=== PATIENT | female | born 1945 | race Caucasian/White ===

== ENCOUNTER 2020-05-21 12:07 | Outpatient (REF) | payer MEDICARE, MEDICAID, SELFPAY ==
--- NOTE | 2020-05-21 | MM_ITS ---
EXAMINATION: MM SCREENING DIGITAL BREAST TOMOSYNTHESIS, BILATERAL CLINICAL INFORMATION: Screening. Asymptomatic. The lifetime risk of breast cancer based on the Tyrer-Cuzick Model is 3%. COMPARISON: Mammography: 05/16/2019, 03/29/2018 TECHNIQUE: Digital breast tomosynthesis is performed in both the craniocaudal and mediolateral oblique views along with computer-aided detection (CAD). Synthesized 2D images are generated from the tomosynthesis. FINDINGS: There are scattered areas of fibroglandular density (ACR BI-RADS breast composition Category b). There are no significant masses, abnormal calcifications, or other abnormalities. No significant changes from prior studies. MM/MM tomosynthesis screening BI IMPRESSION: No mammographic evidence of malignancy. ASSESSMENT: BI-RADS 1: Negative RECOMMENDATION: Routine annual mammography screening. This patient's information was entered into a reminder system with a target due date for their next mammogram.
== END 2020-05-21 12:08 | disposition home or self-care (01) ==
LOC: HO.MAMMO 12:07
PROVIDERS: PCP Internal Medicine; Visit Provider Internal Medicine
DX: Z12.31 Encounter for screening mammogram for malignant neoplasm of breast (principal)
CPT/HCPCS: 77063; 77067

== ENCOUNTER 2020-08-14 12:40 | Outpatient (REF) | payer MEDICARE, MEDICAID, SELFPAY ==
[2020-08-14 13:58] LABS: MANUAL DIFF FLAG NO
[2020-08-14 14:03] LABS: Basophils Absolute Auto 0.1 X10*3/uL (0.0-0.2); Basophils Percent Auto 0.8 % (0-2); Eosinophils Absolute Auto 0.3 X10*3/uL (0.0-0.4); Eosinophils Percent Auto 3.3 % (0-4); Hematocrit 41.5 % (37-47); Imm Gran Abs Auto 0.02 X10*3/uL (0.00-0.03); Imm Gran Pct Auto 0.2 % (0.0-0.4); Immature Retic Fraction 7.3 % (3.0-15.9); Lymphocytes Absolute Auto 3.6 X10*3/uL (1.2-4.9); Lymphocytes Percent Auto 40.7 % (20-40); Mean Corpuscular HGB Conc 31.3 g/dl (31.0-35.0); Mean Corpuscular Hemoglobin 25.7 pg (27.0-33.0); Mean Corpuscular Volume 82.2 fL (80-98); Mean Platelet Volume 11.5 fL (9.4-12.3); Monocytes Absolute Auto 0.8 X10*3/uL (0.1-1.2); Monocytes Percent Auto 9.1 % (2-11); Neutrophils Percent Auto 45.9 % (45-73); Platelet Count 293 X10*3/uL (160-400); Red Blood Count 5.05 X10*6/uL (4.20-5.50); Red Cell Distribution Width 14.5 % (11.0-16.0); Retic HGB Equivalent 30.1 pg (30.0-35.0); Reticulocyte Percent 1.1 % (0.5-1.8); Reticulocytes Absolute 0.054 X10*6/uL (0.026-0.095); White Blood Count 8.8 X10*3/uL (4.8-10.8)
[2020-08-14 14:35] LABS: Alanine Aminotransferase 12 U/L (0-31); Albumin Level 4.1 g/dL (3.5-5.0); Alkaline Phosphatase 38 U/L (39-117); Anion Gap 11 (12-20); Aspartate Amino Transferase 15 U/L (5-31); Bilirubin Total 0.5 mg/dL (0.0-1.0); Blood Urea Nitrogen 21 mg/dL (9-16); Calcium 8.9 mg/dL (8.4-10.2); Carbon Dioxide 31 mmol/L (22-29); Chloride 102 mmol/L (96-108); Cholesterol 245 mg/dL; Estimated Glomerular Filt Rate 58; Glucose Fasting 90 mg/dL (60-99); HDL Cholesterol 54 mg/dL; Iron 119 mcg/dL (30-160); LDL Cholesterol Calculated 159 mg/dl; Percent Iron Saturation 45 % (15-50); Potassium 4.4 mmol/l (3.3-5.1); Sodium 140 mmol/L (135-145); Total Iron Binding Capacity 262 mcg/dL (228-428); Total Protein 6.9 g/dL (6.5-8.0); Triglycerides 161 mg/dL; Unsaturated Iron Binding 143 ug/dL
[2020-08-14 15:01] LABS: Ferritin 96 ng/mL (10-250); Thyroid Stimulating Hormone 2.22 uIU/mL (0.32-4.0); Vitamin D 25-OH Total 44.9 ng/mL (>30)
== END 2020-08-14 12:41 | disposition home or self-care (01) ==
LOC: HO.LAB 12:40
PROVIDERS: PCP Internal Medicine; Visit Provider Internal Medicine
DX: M51.36 Other intervertebral disc degeneration, lumbar region (principal); E78.5 Hyperlipidemia, unspecified; F41.9 Anxiety disorder, unspecified; N39.46 Mixed incontinence
CPT/HCPCS: 36415; 80053; 80061; 82306; 82728; 83540; 84436; 84443; 85025; 85045

== ENCOUNTER 2021-04-13 10:14 | Outpatient (REF) | payer MEDICARE, MEDICAID, SELFPAY ==
[2021-04-13 10:40] LABS: MANUAL DIFF FLAG NO
[2021-04-13 10:52] LABS: Basophils Absolute Auto 0.1 X10*3/uL (0.0-0.2); Basophils Percent Auto 0.8 % (0-2); Eosinophils Absolute Auto 0.3 X10*3/uL (0.0-0.4); Eosinophils Percent Auto 4.3 % (0-4); Hematocrit 42.1 % (37-47); Hemoglobin 13.1 g/dl (12.0-16.0); Imm Gran Abs Auto 0.02 X10*3/uL (0.00-0.03); Imm Gran Pct Auto 0.3 % (0.0-0.4); Lymphocytes Absolute Auto 3.1 X10*3/uL (1.2-4.9); Lymphocytes Percent Auto 38.6 % (20-40); Mean Corpuscular HGB Conc 31.1 g/dl (31.0-35.0); Mean Corpuscular Hemoglobin 25.5 pg (27.0-33.0); Mean Corpuscular Volume 81.9 fL (80-98); Mean Platelet Volume 11.2 fL (9.4-12.3); Monocytes Absolute Auto 0.7 X10*3/uL (0.1-1.2); Monocytes Percent Auto 8.9 % (2-11); Neutrophils Absolute Auto 3.8 X10*3/uL (2.0-8.3); Neutrophils Percent Auto 47.1 % (45-73); Platelet Count 303 X10*3/uL (160-400); Red Blood Count 5.14 X10*6/uL (4.20-5.50); Red Cell Distribution Width 14.4 % (11.0-16.0)
[2021-04-13 11:01] LABS: Appearance Urine HAZY; Color Urine YELLOW; Glucose Urine UA NEG (NEG); Leukocyte Esterase Urine NEG (NEG); Nitrite Urine NEG (NEG); Specific Gravity - Urine 1.025 (1.005-1.025); Urine Blood NEG (NEG); Urine Ketones NEG (NEG); Urine Protein NEG (NEG-TRACE)
[2021-04-13 11:09] LABS: Alanine Aminotransferase 14 U/L (0-31); Alkaline Phosphatase 36 U/L (39-117); Anion Gap 12 (12-20); Aspartate Amino Transferase 15 U/L (5-31); Bilirubin Total 0.3 mg/dL (0.0-1.0); Blood Urea Nitrogen 20 mg/dL (9-16); Calcium 9.2 mg/dL (8.4-10.2); Carbon Dioxide 28 mmol/L (22-29); Chloride 106 mmol/L (96-108); Cholesterol 234 mg/dL; Estimated Glomerular Filt Rate 52; Glucose Random 104 mg/dL (60-115); HDL Cholesterol 49 mg/dL; LDL Cholesterol Calculated 155 mg/dl; Potassium 4.2 mmol/L (3.3-5.1); Sodium 142 mmol/L (135-145); Total Protein 6.6 g/dL (6.5-8.0); Triglycerides 153 mg/dL
[2021-04-13 11:32] LABS: Free T4 (Free Thyroxine) 0.86 ng/dL (0.71-1.85); Vitamin D 25-OH Total 46.9 ng/mL (>30)
[2021-04-13 12:07] LABS: Mucus Urine 2+ /LPF; Squamous Epithelial Cell Urine 2+ /LPF
[2021-04-13 12:08] LABS: Bacteria Urine TRACE /LPF; RBC Urine 0 /HPF (0)
[2021-04-13 12:12] LABS: Folate 8.4 ng/mL (> or = 4.0); Vitamin B12 1314 pg/mL (200-900)
== END 2021-04-13 10:15 | disposition home or self-care (01) ==
LOC: HO.LAB 10:14
PROVIDERS: PCP Internal Medicine; Visit Provider Internal Medicine
DX: E78.00 Pure hypercholesterolemia, unspecified (principal)
CPT/HCPCS: 36415; 80053; 80061; 81001; 82306; 82607; 82746; 84439; 84443; 85025

== ENCOUNTER 2021-07-06 12:54 | Outpatient (REF) | payer MEDICARE, MEDICAID, SELFPAY ==
[2021-07-06 13:34] LABS: Appearance Urine CLOUDY; Color Urine YELLOW; Glucose Urine UA NEG (NEG); Leukocyte Esterase Urine 2+ (NEG); Nitrite Urine POS (NEG); Specific Gravity - Urine 1.025 (1.005-1.025); UACC Culture Trigger YES; Urine Blood NEG (NEG); Urine Ketones NEG (NEG); Urine Protein NEG (NEG-TRACE)
[2021-07-06 13:48] LABS: Bacteria Urine 2+ /LPF; WBC Urine TNTC /HPF (0-4)
[2021-07-06 13:49] LABS: Mucus Urine 2+ /LPF; Squamous Epithelial Cell Urine 2+ /LPF
== END 2021-07-06 12:55 | disposition home or self-care (01) ==
LOC: HO.LAB 12:54
PROVIDERS: Visit Provider Internal Medicine
DX: R30.0 Dysuria (principal)
CPT/HCPCS: 81001; 87086; 87088; 87186

== ENCOUNTER 2021-11-10 12:24 | Outpatient (REF) | payer MEDICARE, MEDICAID, SELFPAY ==
--- NOTE | ~2021-11-10 | MM_ITS ---
EXAMINATION: BONE DENSITOMETRY CLINICAL INDICATION: Age-related osteoporosis without current pathological fracture. COMPARISON: Baseline BD dated 11/10/2016. TECHNIQUE: Using a [employer] DXA System (software version: 13.1) manufactured by [employer], dual-energy x-ray absorptiometry was performed of the lumbar spine and left hip. The images are of good technical quality. Summary results are attached. FINDINGS: AP SPINE L1-L4: Current: BMD 1.335 g/cm2, Z-score 2.7, T-score 1.3, normal, 1.7% increase from baseline (<5% change is not significant). Baseline: BMD 1.313 g/cm2. LEFT FEMUR, NECK: Current: BMD 0.893 g/cm2, Z-score 0.6, T-score -1.0, normal. Baseline: BMD 0.995 g/cm2. LEFT FEMUR, TOTAL: Current: BMD 0.960 g/cm2, Z-score 1.1, T-score -0.4, normal, 4.0% decrease from baseline (<5% change is not significant). Baseline: BMD 1.000 g/cm2. IDENTIFIED RISK FACTORS: Height loss. Early menopause, secondary osteoporosis, hysterectomy, left oophorectomy. HISTORY OF FRACTURE: None listed. MEDICATIONS: Calcium supplements or multivitamin, vitamin D, ERT/SERMS. MM/XR DEXA axial skeleton IMPRESSION: 1. DIAGNOSIS: Normal bone density based on the lowest T-score value of -1.0 in the femoral neck applying World Health Organization criteria. 2. 10-YEAR FRACTURE RISK PREDICTION, FRAX: According to the guidelines, FRAX calculation should only be performed on patients in the osteopenia bone density category. Therefore, FRAX was not performed on this patient. 3. Treatment Recommendations: NOF guidelines recommend consideration for treatment in postmenopausal women and men age 50 and older presenting with the following: -A hip or vertebral (clinical or morphometric) fracture. -T-score less than or equal to -2.5 at the femoral neck or spine after appropriate evaluation to exclude secondary causes. -Low bone mass at the hip or spine and a 10-year fracture probability by FRAX of greater than or equal to 3% for hip fracture or greater than or equal to 20% for major osteoporotic fracture based on the [place] adapted WHO algorithm. 4. Other Recommendations: All treatment decisions require clinical judgment and consideration of individual patient factors, including patient preferences, comorbidities, previous drug use, risk factors not captured in the FRAX model (e.g. frailty, falls, vitamin D deficiency, increased bone turnover, interval significant decline in bone density) and possible under or overestimation of fracture risk by FRAX. FUTURE SCAN RECOMMENDATION: People with diagnosed cases of osteoporosis or at high risk for fracture should have regular bone mineral density tests. For patients eligible for Medicare, routine testing is allowed once every 2 years. The testing frequency can be increased to one year for patients who have rapidly progressing disease, those who are receiving or discontinuing medical therapy to restore bone mass, or have additional risk factors.
--- NOTE | ~2021-11-10 | MM_ITS ---
EXAMINATION: MM SCREENING DIGITAL BREAST TOMOSYNTHESIS, BILATERAL CLINICAL INFORMATION: Screening. Asymptomatic. The lifetime risk of breast cancer based on the Tyrer-Cuzick Model is 2%. COMPARISON: Mammography: 05/21/2020, 05/16/2019, 03/29/2018, 03/24/2017, 03/01/2016, 01/26/2015, 12/12/2013, 11/06/2012, 10/31/2011 TECHNIQUE: Digital breast tomosynthesis is performed in both the craniocaudal and mediolateral oblique views along with computer-aided detection (CAD). Synthesized 2D images are generated from the tomosynthesis. FINDINGS: There are scattered areas of fibroglandular density (ACR BI-RADS breast composition Category b). Parenchymal pattern is similar to prior studies. There is chronic mild parenchymal asymmetry central upper left breast on MLO view similar to multiple prior exams dating back to 2011. There is no developing density. No interval mass or architectural abnormality or abnormal calcifications. Incidental low right axillary tail node on MLO view. Skin contours are smooth. MM/MM tomosynthesis screening BI IMPRESSION: No mammographic evidence of malignancy. ASSESSMENT: BI-RADS 2: Benign RECOMMENDATION: Routine annual mammography screening. This patient's information was entered into a reminder system with a target due date for their next mammogram.
== END 2021-11-10 12:25 | disposition home or self-care (01) ==
LOC: HO.MAMMO 12:24
PROVIDERS: PCP Internal Medicine; Visit Provider Internal Medicine
DX: Z12.31 Encounter for screening mammogram for malignant neoplasm of breast (principal); M81.0 Age-related osteoporosis without current pathological fracture; M17.10 Unilateral primary osteoarthritis, unspecified knee; R29.890 Loss of height; Z90.710 Acquired absence of both cervix and uterus; Z90.721 Acquired absence of ovaries, unilateral
CPT/HCPCS: 77063; 77067; 77080

== ENCOUNTER 2022-11-07 11:18 | Outpatient (REF) | payer MEDICARE, MEDICAID, SELFPAY ==
[2022-11-07 11:36] LABS: MANUAL DIFF FLAG NO
[2022-11-07 11:46] LABS: Basophils Absolute Auto 0.1 X10*3/uL (0.0-0.2); Basophils Percent Auto 1.1 % (0-2); Eosinophils Absolute Auto 0.3 X10*3/uL (0.0-0.4); Eosinophils Percent Auto 3.6 % (0-4); Hemoglobin 12.8 g/dl (12.0-16.0); Imm Gran Abs Auto 0.02 X10*3/uL (0.00-0.03); Imm Gran Pct Auto 0.3 % (0.0-0.4); Lymphocytes Absolute Auto 2.9 X10*3/uL (1.2-4.9); Lymphocytes Percent Auto 38.5 % (20-40); Mean Corpuscular HGB Conc 31.2 g/dl (31.0-35.0); Mean Corpuscular Hemoglobin 25.2 pg (27.0-33.0); Mean Corpuscular Volume 80.9 fL (80.0-98.0); Mean Platelet Volume 10.8 fL (9.4-12.3); Monocytes Absolute Auto 0.7 X10*3/uL (0.1-1.2); Monocytes Percent Auto 9.7 % (2-11); Neutrophils Absolute Auto 3.5 x10*3/uL (2.0-8.3); Neutrophils Percent Auto 46.8 % (45-73); Platelet Count 282 X10*3/uL (160-400); Red Blood Count 5.07 X10*6/uL (4.20-5.50); Red Cell Distribution Width 14.9 % (11.0-16.0); White Blood Count 7.5 X10*3/uL (4.8-10.8)
[2022-11-07 12:04] LABS: Appearance Urine Cloudy; Color Urine Yellow; Glucose Urine UA Negative (Negative); Leukocyte Esterase Urine Large (3+) (Negative); Nitrite Urine Negative (Negative); UMIC TRIGGER UACC YES; Urine Blood Negative (Negative); Urine Ketones Negative (Negative); Urine Protein Negative (Neg-Trace)
[2022-11-07 12:06] LABS: Bacteria Urine 4+ (None Seen); Hyaline Casts Urine 0-2 /LPF (0-2); RBC Urine 0-2 /HPF (0-2); UACC Culture Trigger YES; WBC Urine >50 /HPF (0-5)
[2022-11-07 12:15] LABS: Estimated Average Glucose 117 mg/dL; Hemoglobin A1c % 5.7 %
[2022-11-07 12:35] LABS: Alanine Aminotransferase 12 U/L (0-31); Albumin Level 3.9 g/dL (3.5-5.0); Alkaline Phosphatase 39 U/L (39-117); Anion Gap 13 (12-20); Aspartate Amino Transferase 14 U/L (5-31); Bilirubin Total 0.5 mg/dL (0.0-1.0); Blood Urea Nitrogen 22 mg/dL (9-16); Calcium 9.1 mg/dL (8.4-10.2); Carbon Dioxide 27 mmol/L (22-29); Chloride 106 mmol/L (96-108); Cholesterol 243 mg/dL; Estimated Glomerular Filt Rate 47; Glucose Random 88 mg/dL (60-115); HDL Cholesterol 43 mg/dL; LDL Cholesterol Calculated 170 mg/dl; Potassium 4.2 mmol/L (3.3-5.1); Sodium 142 mmol/L (135-145); Total Protein 6.5 g/dL (6.5-8.0); Triglycerides 154 mg/dL
[2022-11-07 12:43] LABS: Folate 8.5 ng/mL (> or = 4.0); Free T4 (Free Thyroxine) 0.86 ng/dL (0.71-1.85); Thyroid Stimulating Hormone 3.58 uIU/mL (0.32-4.0); Vitamin B12 1220 pg/mL (200-900); Vitamin D 25-OH Total 72.9 ng/mL (>30)
== END 2022-11-07 11:19 | disposition home or self-care (01) ==
LOC: HO.LAB 11:18
PROVIDERS: PCP Internal Medicine; Visit Provider Internal Medicine
DX: R73.01 Impaired fasting glucose (principal); N39.0 Urinary tract infection, site not specified; E78.00 Pure hypercholesterolemia, unspecified; M81.0 Age-related osteoporosis without current pathological fracture
CPT/HCPCS: 36415; 80053; 80061; 81001; 81003; 82306; 82607; 82746; 83036; 84439; 84443; 85025; 87086; 87088; 87186

== ENCOUNTER 2022-11-18 10:48 | Outpatient (REF) | payer MEDICARE, MEDICAID, SELFPAY ==
--- NOTE | ~2022-11-18 | MM_ITS ---
EXAMINATION: MM SCREENING DIGITAL BREAST TOMOSYNTHESIS, BILATERAL CLINICAL INFORMATION: Screening. Asymptomatic. The lifetime risk of breast cancer based on the Tyrer-Cuzick Model is 1%. COMPARISON: Mammography: 11/10/2021, 05/21/2020, 05/16/2019 TECHNIQUE: Digital breast tomosynthesis is performed in both the craniocaudal and mediolateral oblique views along with computer-aided detection (CAD). Synthesized 2D images are generated from the tomosynthesis. FINDINGS: There are scattered areas of fibroglandular density (ACR BI-RADS breast composition Category b). There are no significant masses, abnormal calcifications, or other abnormalities. Parenchymal pattern is similar to prior studies. There is no developing density or architectural abnormality. The axilla and skin contours are unremarkable. No significant changes. MM/MM tomosynthesis screening BI IMPRESSION: No mammographic evidence of malignancy. ASSESSMENT: BI-RADS 1: Negative RECOMMENDATION: Routine annual mammography screening. This patient's information was entered into a reminder system with a target due date for their next mammogram.
== END 2022-11-18 10:49 | disposition home or self-care (01) ==
LOC: HO.MAMMO 10:48
PROVIDERS: PCP Internal Medicine; Visit Provider Nurse Practitioner Family
DX: Z12.31 Encounter for screening mammogram for malignant neoplasm of breast (principal)
CPT/HCPCS: 77063; 77067

== ENCOUNTER 2022-11-29 13:54 | Outpatient (REF) | payer MEDICARE, MEDICAID, SELFPAY ==
--- NOTE | ~2022-11-29 | US_ITS ---
EXAMINATION: US VENOUS ULTRASOUND WITH DOPPLER LOWER EXTREMITY, RIGHT CLINICAL INFORMATION: Pain COMPARISON: None available. TECHNIQUE: Ultrasound of the deep veins is performed from the hip to the calf with compression sonography and color and pulse Doppler assessment. Spectral analysis with color-flow imaging is performed. FINDINGS: There is normal venous compression and respiratory variation and augmented flow. The visualized common femoral vein, superficial femoral vein, profunda femoral vein, popliteal vein, and the trifurcation region shows no evidence of deep venous thrombosis. There is superficial thrombophlebitis in the right greater saphenous vein in the calf. There is no significant popliteal fossa cyst. US/US venous duplex LE RT IMPRESSION: No DVT demonstrated in the right lower extremity. Superficial thrombophlebitis of the greater saphenous vein in the calf.
== END 2022-11-29 13:55 | disposition home or self-care (01) ==
LOC: HO.US 13:54
PROVIDERS: PCP Internal Medicine; Visit Provider Nurse Practitioner Family
DX: Z13.89 Encounter for screening for other disorder (principal)
CPT/HCPCS: 93971

== ENCOUNTER 2022-11-29 15:25 | Emergency (ER) | payer MEDICARE, MEDICAID, SELFPAY ==
--- NOTE | 2022-11-29 16:19 | ED_ITS ---
HPI - General Adult General Chief complaint: Extremity Problem Stated complaint: sent by dr for bloodwork Time Seen by Provider: 11/29/22 16:56 Source: patient, RN notes reviewed and old records reviewed Mode of arrival: ambulatory History of Present Illness HPI narrative: 77-year-old female with a past medical history degenerative disc disease, HLD, overactive bladder, vitamin-D deficiency, right knee replacement in March, presenting to the ED complaining of right lower extremity pain since knee replacement in March, had outpatient ultrasound today & was sent to ED for further evaluation. Denies fever, chills, SOB, numbness/tingling, lightheadedness/dizziness. Denies taking anticoagulation Onset (ago): month(s) Related Data Home Medications Medication Instructions Recorded Confirmed cholecalciferol (vitamin D3) 25 25 mcg PO DAILY 07/31/20 11/09/22 mcg (1,000 unit) capsule flaxseed oil 1,000 mg capsule 1,000 mg PO DAILY 07/31/20 11/09/22 lactobacillus combination no.8 3 3,000 mmu cells PO DAILY 07/31/20 11/09/22 billion cell capsule (Adult Probiotic) cyanocobalamin (vitamin B-12) 1,000 mcg PO DAILY 04/27/21 11/09/22 1,000 mcg capsule Previous Rx's Medication Instructions Recorded estradiol 0.5 mg tablet 0.5 mg PO DAILY #90 tabs 10/22/21 diclofenac sodium 1 % topical gel 4 g topical QID #100 grams 10/26/21 (Voltaren Arthritis Pain) amoxicillin 500 mg capsule 2,000 mg PO .COMPLEX #4 caps 08/10/22 citalopram 20 mg tablet 20 mg PO DAILY #90 tabs 10/07/22 sulfamethoxazole 800 1 tab PO Q12H #14 tabs 11/09/22 mg-trimethoprim 160 mg tablet (Bactrim DS) Allergies Allergy/AdvReac Type Severity Reaction Status Date / Time tramadol [TRAMADOL] Allergy Severe THROAT Verified 11/09/22 14:10 SWELLING aspirin [ASPIRIN] Allergy Intermediate GI UPSET - Verified 11/09/22 14:10 ABD PAIN, pain morphine [MORPHINE] Allergy Intermediate JITTERY, Verified 11/09/22 14:10 pain nitrofurantoin Allergy Intermediate HIVES Verified 11/09/22 14:10 [From MACROBID] codeine [CODEINE] Allergy Unknown pain Verified 11/09/22 14:10 oxycodone [Percocet] Allergy Unknown pain Verified 11/09/22 14:10 Sulfa (Sulfonamide Allergy Unknown Nausea, Verified 11/09/22 14:10 Antibiotics) diarrhea mirabegron [From Myrbetriq] AdvReac Intermediate Dizziness Verified 11/09/22 14:10 sulfamethoxazole AdvReac Intermediate NAUSEA/DIAR Verified 11/09/22 14:10 [From BACTRIM] ZAHRAA trimethoprim [From BACTRIM] AdvReac Intermediate NAUSEA/DIAR Verified 11/09/22 14:10 ZAHRAA Propoxyphene HCl Allergy Unknown Unknown Uncoded 11/09/22 14:10 From DARVOCET-N 100 AdvReac Intermediate ABD PAIN - Uncoded 11/09/22 14:10 NAUSEA Review of Systems Review of Systems: Constitutional: No Fever, No Chills ENT/Mouth: No Ear Pain, No Nasal Congestion, No sore throat, No Rhinorrhea, No Swallowing Difficulty Cardiovascular: No Chest Pain, No SOB Respiratory: No Cough, No Sputum Gastrointestinal: No Nausea, No Vomiting, No Diarrhea, No Constipation, No Abdominal pain Musculoskeletal: + joint pain, No Myalgias, No Joint Swelling Skin: No Skin Lesions, No rash Neuro: No Weakness, No Numbness, No Paresthesias Yes all other systems are reviewed and are negative Constitutional: Constitutional: Reports as per [facility] Past Medical History Attestation statement: The following information was validated with the patient. Source: old records reviewed Medical History Allergic rhinitis Degenerative disc disease, lumbar Hypercholesterolemia Mixed incontinence Overactive bladder Vitamin D deficiency Surgical History History of arthroscopy of left knee History of cataract surgery History of cholecystectomy History of hysterectomy History of shoulder surgery Family History Family History Father Diabetes Myocardial infarction Heart disease Mother Heart disease Chronic mental illness Stomach cancer Sister Esophageal cancer Brother Esophageal cancer Paternal Grandfather Heart disease Social History Social History Housing: House Alcohol intake: current Alcohol intake frequency: a few times a month Patient Tobacco Use Status: Never used Tobacco e-Cigarette/Vaping Use: Never Used Second Hand Smoke Exposure: No service: No Current occupational status: retired Cognitive needs: No Hearing needs: No Vision needs: Yes Physical Exam ED Vital Signs: Vital Signs - 24 hr 11/29/22 16:24 Temperature 98.0 F Pulse Rate 59 Respiratory Rate 18 Blood Pressure 144/60 H Pulse Oximetry 97 Oxygen Delivery Method Room Air BMI result Body Mass Index 24.2 Const General: cooperative, healthy appearing and no acute distress Orientation/consciousness: patient oriented x3 Limitations: no limitations HENMT Head: Yes normal to inspection and Yes atraumatic Ears: hearing grossly normal bilaterally General nose exam: Normal external nose present Face and sinus: Yes normal facial exam Eyes General: appearance normal, both eyes and all related structures EOM: EOMs intact bilaterally Neck Neck: Yes normal visual inspection and Yes no meningeal signs Resp Effort & Inspection: normal respiratory effort and no respiratory distress Cardio Rate: regular rate Peripheral pulses: Peripheral pulses 2+ throughout Skin Rashes: no rashes Wounds: no wounds Neuro General: patient oriented x3, tone normal and no meningeal signs Gait exam (Neuro): Normal gait present Extrem Other: +Mild ttp to right upper LE. No appreciable swelling/ecchymosis or pitting edema. No erythema or warmth. NV intact distally General: Yes normal to inspection Course Course Course Narrative: US venous duplex LE RT IMPRESSION: No DVT demonstrated in the right lower extremity. Superficial thrombophlebitis of the greater saphenous vein in the calf. >> spoke with PCP Madeleine Galvez, patient is cleared for discharge, can follow up with PCP in 1 month. Genaro wrap applied for compression. Recommended warm compresses, elevation, and NSAIDs Results discussed with patient including worrisome signs and symptoms and strict return precautions, and when to return to the emergency department. They verbalized understanding and feel safe for discharge at this time. Medical Decision Making Medical Decision Making MDM Narrative: 77-year-old female with a past medical history degenerative disc disease, HLD, overactive bladder, vitamin-D deficiency, right knee replacement in March, presenting to the ED complaining of right lower extremity pain since knee replacement in March, had outpatient ultrasound today & was sent to ED for further evaluation. On exam vital signs stable, NAD, nontoxic appearing, physical exam as noted above. Ultrasound official read states no DVT in the right lower extremity. Superficial thrombophlebitis of the greater saphenous vein of the calf. No evidence of cellulitis or pitting edema. Low suspicion for septic joint, CHF or PE Unclear why patient was sent to the emergency department. Will contact patient's PCP Please refer to course for remaining clinical decision making, interpretation of labs/imaging results, and discussions with consultants and/or family members. Differential Diagnosis Differential Diagnoses: The differential diagnosis associated with the presentation includes As above Admission/Observation Consideration of admission/observation: Escalation of care including admission/observation considered Consult Healthcare Provider Management of the patient was discussed with: Primary Care Provider Lab Data MDM Lab Attestation statement: I reviewed the patient's lab results. Radiology Impression Discussion of test interpretation with radiology: I have reviewed the radiologist's reading. External Record Review External record reviewed: Inpatient record, Office record, Outpatient record, Prior outpatient labs, Prior outpatient radiology, Primary care record and Outside ED record Tests considered The following testing was considered but not selected: As above Discharge Plan Discharge Clinical Impression: Superficial thrombophlebitis Patient Disposition: Home, Self-Care Instructions: Superficial Thrombophlebitis (ED) Additional Instructions: Your ultrasound shows a superficial thrombophlebitis, no DVT Elevate, compression, warm compresses, take NSAIDs as needed which includes ibuprofen/Motrin Follow-up with her doctor If symptoms persist or worsen, you develop shortness of breath, worsening swelling, or fever return to the ED Prescriptions: No Action estradiol 0.5 mg tablet 0.5 mg PO DAILY Qty: 90 3RF citalopram 20 mg tablet 20 mg PO DAILY Qty: 90 2RF cholecalciferol (vitamin D3) 25 mcg (1,000 unit) capsule 25 mcg PO DAILY Adult Probiotic 3 billion cell capsule 3,000 mmu cells PO DAILY Rx Instructions: administer with a meal flaxseed oil 1,000 mg capsule 1,000 mg PO DAILY Rx Instructions: administer with a meal cyanocobalamin (vitamin B-12) 1,000 mcg capsule 1,000 mcg PO DAILY diclofenac sodium [Voltaren Arthritis Pain] 1 % gel 4 g topical QID Qty: 100 2RF Rx Instructions: apply to single knee, ankle, foot; for foot includes sole/toes/top of foot sulfamethoxazole-trimethoprim [Bactrim DS] 800-160 mg tablet 1 tab PO Q12H Qty: 14 0RF amoxicillin 500 mg capsule 2,000 mg PO .COMPLEX Qty: 4 0RF Rx Instructions: 2,000 mg orally one hour before the procedure; Referrals: Po,Fabiano Campos MD [Primary Care Provider] -
[2022-11-29 16:24] VITALS: BP 144/60; PULSE 59; RESP 18; TEMP 36.7; O2SAT 97; BMI 24.2
== END 2022-11-29 17:58 | disposition home or self-care (01) ==
PROVIDERS: Emergency Provider Internal Medicine; PCP Internal Medicine
DX: I80.01 Phlebitis and thrombophlebitis of superficial vessels of right lower extremity (principal); M79.661 Pain in right lower leg; Z79.899 Other long term (current) drug therapy
CPT/HCPCS: 93971; 99282

== ENCOUNTER 2023-02-08 13:03 | Outpatient (AMB) | payer MEDICARE, MEDICAID, SELFPAY ==
[2023-02-08 13:06] VITALS: BP 114/68; PULSE 76; O2SAT 97; BMI 25.2
--- NOTE | 2023-02-08 13:06 | A.OFFPC_ITS ---
Vital Signs 02/08/23 13:06 Height 5 ft 6 in Weight 156 lb BMI 25.2 BP 114/68 Blood Pressure Location Lt brachial Position Sitting Pulse 76 Pulse Source Pulse Oximeter Pulse Oximetry (%) 97 Oxygen Delivery Method Room Air Intake Visit Reasons: headaches, blood clot, hypercholesterolemia impaired glucose tolerance Allergies tramadol [TRAMADOL] Allergy (Severe, Verified 02/08/23 13:06) THROAT SWELLING aspirin [ASPIRIN] Allergy (Intermediate, Verified 02/08/23 13:06) GI UPSET - ABD PAIN, pain morphine [MORPHINE] Allergy (Intermediate, Verified 02/08/23 13:06) JITTERY, pain nitrofurantoin [From MACROBID] Allergy (Intermediate, Verified 02/08/23 13:06) HIVES codeine [CODEINE] Allergy (Unknown, Verified 02/08/23 13:06) pain oxycodone [Percocet] Allergy (Unknown, Verified 02/08/23 13:06) pain Sulfa (Sulfonamide Antibiotics) Allergy (Unknown, Verified 02/08/23 13:06) Nausea, diarrhea mirabegron [From Myrbetriq] Adverse Reaction (Intermediate, Verified 02/08/23 13:06) Dizziness sulfamethoxazole [From BACTRIM] Adverse Reaction (Intermediate, Verified 02/08/23 13:06) NAUSEA/DIARRHEA trimethoprim [From BACTRIM] Adverse Reaction (Intermediate, Verified 02/08/23 13:06) NAUSEA/DIARRHEA Propoxyphene HCl Allergy (Unknown, Uncoded 02/08/23 13:06) Unknown From DARVOCET-N 100 Adverse Reaction (Intermediate, Uncoded 02/08/23 13:06) ABD PAIN - NAUSEA Medication List - Last Reconciled 02/08/23 by Fabiano Mckeon MD amoxicillin 2,000 mg orally one hour before the procedure; cholecalciferol (vitamin D3) 25 mcg PO DAILY citalopram 20 mg PO DAILY cyanocobalamin (vitamin B-12) 1,000 mcg PO DAILY diclofenac sodium 1% (Voltaren Arthritis Pain) 4 grams topical QID estradiol 0.5 mg PO DAILY flaxseed oil 1,000 mg PO DAILY lactobacillus combination no.8 (Adult Probiotic) 3,000 mmu cells PO DAILY Tobacco use date assessed: 08/10/22 Fall risk assessment: No Falls in past year Last assessed Fall Risk: 02/08/23 Dental Screening Dental Screen Date: 02/08/23 Did you have a dental visit in the last 12 months?: Yes Did you have a dental problem in the last 6 months where you did not have access to dental care?: No Was dental information given to patient?: Patient has dentist HPI hypercholesterolemia impaired glucose tolerance HPI Details 77-year-old female with a history of knee osteoarthritis impaired glucose tolerance generalized anxiety disorder and hypercholesterolemia last seen in July 2022. Mammogram is due colonoscopy is up-to-date bone density is up-to-date. Patient has complained of right lower extremity pain since the knee replacement in March ultrasound done showing no DVT but superficial thrombophlebitis of the greater saphenous vein in the calf. complains of sleepy and tiredness, does snore,- afternoon nap, pateint feels anxiety and depressed decline counselling referral - financial problem. was told memory problem- MMS good. advised memory clinic. [facility] Medical History (Updated 02/08/23 @ 13:27 by Fabiano Mckeon MD) Allergic rhinitis Degenerative disc disease, lumbar Hypercholesterolemia Mixed incontinence Overactive bladder Right leg pain Screening for breast cancer Vitamin D deficiency Surgical History History of arthroscopy of left knee History of cataract surgery History of cholecystectomy History of hysterectomy History of shoulder surgery Family History (Updated 02/08/23 @ 13:07 by Mariola Demarco [facility]) Father Diabetes Myocardial infarction Heart disease Mother Heart disease Chronic mental illness Stomach cancer Sister Esophageal cancer Brother Esophageal cancer Paternal Grandfather Heart disease Social History Housing: House Alcohol intake: current Alcohol intake frequency: a few times a month Patient Tobacco Use Status: Never used Tobacco e-Cigarette/Vaping Use: Never Used Second Hand Smoke Exposure: No service: No Current occupational status: retired Cognitive needs: No Hearing needs: No Vision needs: Yes Questionnaire PHQ-9 Over the last 2 weeks, how often have you been bothered by any of the following problems? 1. Little interest or pleasure in doing things: more than half the days 2. Feeling down, depressed, or hopeless: more than half the days 3. Trouble falling or staying asleep, or sleeping too much: more than half the days 4. Feeling tired or having little energy: more than half the days 5. Poor appetite or overeating: more than half the days 6. Feeling bad about yourself - or that you are a failure or have let yourself or your family down: not at all 7. Trouble concentrating on things, such as reading the newspaper or watching television: not at all 8. Moving or speaking so slowly that other people could have noticed. Or the opposite - being so fidgety or restless that you have been moving around a lot more than usual: not at all 9. Thoughts that you would be better off or of hurting yourself in some way: not at all Total score: 10 Depression Screening Interpretation: Negative 52705 - PHQ-9 Billing: Yes Source: Developed by Drs. Naeem Garza, Belia Leone, Esa Amaral and colleagues, with an educational dino from [employer]. Thrive Questionnaire Date Thrive assessed: 08/10/22 AUDIT C Alcohol Use Questionnaire (AUDIT-C) 1. How often do you have a drink containing alcohol?: 2-3 times a week 2. How many drinks containing alcohol do you have on a typical day when you are drinking?: 1 or 2 3. How often do you have six or more drinks on one occasion?: Never Total Score: 3 Score Reviewed/Action Taken: No TEZ-7 AMB Questionnaire TEZ-7 Date TEZ - 7 assessed: 08/10/22 Source: Developed by Drs. Naeem Garaz, Belia Leone, Esa Amaral and colleagues, with an educational dino from [employer]. Physical exam (Primary Care) Vital Signs: Last Vital Signs Pulse 76 02/08/23 13:06 BP 114/68 02/08/23 13:06 Pulse Ox 97 02/08/23 13:06 Oxygen Delivery Method Room Air 02/08/23 13:06 BMI result Body Mass Index 25.2 Tobacco/Smoking Status: Tobacco use Status Tobacco use date assessed 08/10/22 02/08/23 13:12 Patient Tobacco Use Status Never used Tobacco 02/08/23 13:12 e-Cigarette/Vaping Use Never Used 02/08/23 13:12 PHQ-9: PHQ-9 Score PHQ-9: Total score 10 02/08/23 13:12 Depression Screening Interpretation: Negative Thrive Assessment: Date of Thrive Assessment Date Thrive assessed 08/10/22 02/08/23 13:12 Const General: alert; No acute distress Eyes Conjunctivae: conjunctivae normal Resp Auscultation: clear to auscultation bilaterally Cardio Rate: regular rate Rhythm: regular rhythm GI Inspection: Yes normal to inspection Extrem General: Yes normal to inspection and No edema Assessment and Plan Assessment & Plan (1) Superficial thrombophlebitis of right leg: Comment: November 2022No DVT demonstrated in the right lower extremity. Superficial thrombophlebitis of the greater saphenous vein in the calf. Code(s): I80.01 - Phlebitis and thrombophlebitis of superficial vessels of right lower extremity Plan: Heat and anti-inflammatories. this is getting better (2) Knee osteoarthritis: Comment: R knee arthroplasty 04/14/2022 Dr. Hwang Code(s): M17.10 - Unilateral primary osteoarthritis, unspecified knee Plan: Keep active (3) Impaired fasting blood sugar: Code(s): R73.01 - Impaired fasting glucose Plan: Decrease the amount of carbohydrate intake, pasta, bread, rice and potatoes are all sugar and that is aside from all the sweet stuff, remember that fruits are good but they are Sweet also. (4) Generalized anxiety disorder: Code(s): F41.1 - Generalized anxiety disorder Plan: Continue with present medications citalopram. decline additional med (5) Hypercholesterolemia: Code(s): E78.00 - Pure hypercholesterolemia, unspecified Plan: Avoid fried foods, chicken skin, eggs, butter margarine, pastries and meat. Be it pork or beef they have a lot of cholesterol LDL goal of less than 130 and triglyceride of less than 150 decline new med Orders: Orders Comprehensive Met. Panel 6 Months E78.00 - Pure hypercholesterolemia, unspecified Hemoglobin A1c 6 Months E78.00 - Pure hypercholesterolemia, unspecified Lipid Panel 6 Months E78.00 - Pure hypercholesterolemia, unspecified Coding Level of Care Code Est Pt Level 4 (53234) Diagnoses Superficial thrombophlebitis of right leg I80.01 Knee osteoarthritis M17.10 Impaired fasting blood sugar R73.01 Generalized anxiety disorder F41.1 Hypercholesterolemia E78.00
== END 2023-02-08 13:49 | disposition home or self-care (01) ==
PROVIDERS: PCP Internal Medicine; Visit Provider Internal Medicine
DX: I80.01 Phlebitis and thrombophlebitis of superficial vessels of right lower extremity (principal); M17.10 Unilateral primary osteoarthritis, unspecified knee; R73.01 Impaired fasting glucose; F41.1 Generalized anxiety disorder; E78.00 Pure hypercholesterolemia, unspecified
CPT/HCPCS: 99214

== ENCOUNTER 2023-06-12 18:33 | Emergency (ER) | payer MEDICARE, MEDICAID, SELFPAY ==
--- NOTE | ~2023-06-12 | CT_ITS ---
CT HEAD WITHOUT IV CONTRAST CT CERVICAL SPINE WITHOUT IV CONTRAST CT MAXILLOFACIAL WITHOUT IV CONTRAST INDICATION: Fall. COMPARISON: None available. TECHNIQUE: Multidetector CT acquisitions of the head, maxillofacial region, and cervical spine were obtained without IV contrast. Multiplanar reformats were acquired and utilized for image interpretation. This CT examination was performed using dose optimization techniques as appropriate, variously including the following: *Automated exposure control *Adjustment of mA and/or kV according to patient size (this includes techniques or standardized protocols for targeted exams where dose is matched to indication/reason for exam; i.e. extremities or head) *Use of iterative reconstruction technique FINDINGS: HEAD: There is no intracranial hemorrhage, hydrocephalus, extra-axial surface collection, midline shift, or other herniation pattern. Padron to white matter differentiation is diffusely maintained without evidence of an evolved acute territorial infarct. The basilar cisterns are preserved. No significant soft tissue abnormality. No acute osseous abnormality. The paranasal sinuses and the mastoid air cells are well aerated. MAXILLOFACIAL: Minimally displaced nasal bone fractures with overlying nasal swelling/soft tissue hematoma. Probable small avulsion fracture of the maxillary nasal spine on the right side. No additional maxillofacial fractures. CERVICAL SPINE: There is anatomic alignment of the vertebral bodies and posterior elements. Hypertrophic degenerative changes involving the atlantodental interval. Multilevel cervical spondylosis. There is no acute fracture and there is no acute subluxation. The craniocervical and atlantoaxial articulations are normal. There is no prevertebral soft tissue swelling. No significant soft tissue abnormality within the neck. The visualized lung apices are clear. CT/CT cervical spine wo IV con IMPRESSION: 1. No acute intracranial abnormality. 2. No acute osseous abnormality within the cervical spine. 3. Minimally displaced nasal bone fractures with overlying nasal swelling/soft tissue hematoma. Probable small avulsion fracture of the maxillary nasal spine on the right side.
--- NOTE | 2023-06-12 18:46 | ED_ITS ---
HPI - Fall General Chief Complaint: Fall Stated Complaint: TRIPPED AND FELL ON PAVEMENT Time Seen by Provider: 06/12/23 18:42 Source: patient Mode of arrival: EMS Limitations: no limitations History of Present Illness HPI Narrative: Patient apparently was walking on her driveway tripped on a hose which was crossing the driveway patient fell forward hitting her nose to the ground other injury has abrasion on the tip of the nose no loss of consciousness no neck pain chest swelling of the nose and surrounding area Related Data Home Medications Medication Instructions Recorded Confirmed cholecalciferol (vitamin D3) 25 25 mcg PO DAILY 07/31/20 02/08/23 mcg (1,000 unit) capsule flaxseed oil 1,000 mg capsule 1,000 mg PO DAILY 07/31/20 02/08/23 lactobacillus combination no.8 3 3,000 mmu cells PO DAILY 07/31/20 02/08/23 billion cell capsule (Adult Probiotic) cyanocobalamin (vitamin B-12) 1,000 mcg PO DAILY 04/27/21 02/08/23 1,000 mcg capsule Previous Rx's Medication Instructions Recorded diclofenac sodium 1 % topical gel 4 g topical QID #100 grams 10/26/21 (Voltaren Arthritis Pain) amoxicillin 500 mg capsule 2,000 mg (4 x 500 mg) PO .COMPLEX 08/10/22 #4 caps citalopram 20 mg tablet 20 mg PO DAILY #90 tabs 10/07/22 estradiol 0.5 mg tablet 0.5 mg PO DAILY #90 tabs 03/21/23 Allergies Allergy/AdvReac Type Severity Reaction Status Date / Time tramadol [TRAMADOL] Allergy Severe THROAT Verified 02/08/23 13:06 SWELLING aspirin [ASPIRIN] Allergy Intermediate GI UPSET - Verified 02/08/23 13:06 ABD PAIN, pain morphine [MORPHINE] Allergy Intermediate JITTERY, Verified 02/08/23 13:06 pain nitrofurantoin Allergy Intermediate HIVES Verified 02/08/23 13:06 [From MACROBID] codeine [CODEINE] Allergy Unknown pain Verified 02/08/23 13:06 oxycodone [Percocet] Allergy Unknown pain Verified 02/08/23 13:06 Sulfa (Sulfonamide Allergy Unknown Nausea, Verified 02/08/23 13:06 Antibiotics) diarrhea mirabegron [From Myrbetriq] AdvReac Intermediate Dizziness Verified 02/08/23 13:06 sulfamethoxazole AdvReac Intermediate NAUSEA/DIAR Verified 02/08/23 13:06 [From BACTRIM] ZAHRAA trimethoprim [From BACTRIM] AdvReac Intermediate NAUSEA/DIAR Verified 02/08/23 13:06 ZAHRAA Propoxyphene HCl Allergy Unknown Unknown Uncoded 02/08/23 13:06 From DARVOCET-N 100 AdvReac Intermediate ABD PAIN - Uncoded 02/08/23 13:06 NAUSEA Review of Systems Review of Systems: Yes all other systems are reviewed and are negative [facility] Past Medical History Medical History Right leg pain Screening for breast cancer Overactive bladder Degenerative disc disease, lumbar Allergic rhinitis Mixed incontinence Hypercholesterolemia Vitamin D deficiency Surgical History History of cataract surgery History of arthroscopy of left knee History of shoulder surgery History of hysterectomy History of cholecystectomy Family History Family History Father Diabetes Myocardial infarction Heart disease Mother Heart disease Chronic mental illness Stomach cancer Sister Esophageal cancer Brother Esophageal cancer Paternal Grandfather Heart disease Social History Social History Housing: House Alcohol intake: current Alcohol intake frequency: holidays/special occasions only Patient Tobacco Use Status: Never used Tobacco Smoked in Last 30 Days: No e-Cigarette/Vaping Use: Never Used Second Hand Smoke Exposure: No Use of substances other than those prescribed or required for medical reasons: No Advance Directives: No Advance Directives Information Provided: No service: No Current occupational status: retired Cognitive needs: No Hearing needs: No Vision needs: Yes Physical Exam Vital Signs: Vital Signs: Last Vital Signs Temp 98.3 F 06/12/23 18:55 Pulse 86 06/12/23 18:55 Resp 16 06/12/23 18:55 BP 168/71 H 06/12/23 18:55 Pulse Ox 98 06/12/23 18:55 O2 Del Method Room Air 06/12/23 18:55 BMI result Body Mass Index 25.3 Appearance: Alert. Oriented X3. No acute distress. Eyes: PERRLA, No Nystagmus EOMI ENT: Pharynx normal. Oral Mucosa moist abrasion of the tip of the nose, nares clear Neck: Normal inspection. Neck supple. No midline tenderness CVS: Normal heart rate and rhythm. Pulses normal. Respiratory: No respiratory distress. Equal air entry bilateral, Abdomen: Soft and nontender. Bowel sounds are present, no mass palpable, no CVA tenderness Skin: Skin warm and dry. Normal skin color. Normal skin turgor. Extremities: No lower extremity edema. No calf tenderness Neuro: Oriented X 3. No motor deficit. No sensory deficit.No cerebellar signs , cranial nerves II-XII intact Medications Administered Discontinued Medications Generic Name Dose Route Start Last Admin Trade Name Freq PRN Reason Stop Dose Admin Bacitracin 1 appl 06/12/23 21:22 06/12/23 21:29 Bacitracin Oint 0.9 Gm Packet TOPICAL 06/12/23 21:23 1 appl ONCE ONE Administration Protocol Ibuprofen 600 mg 06/12/23 20:39 06/12/23 20:49 Ibuprofen 600 Mg Tablet PO 06/12/23 20:40 600 mg ONCE ONE Administration Medical Decision Making Medical Decision Making [facility] Narrative: Patient is post mechanical fall workup showed small minimal displaced nose fracture CT head and C-spine negative Differential Diagnosis Differential Diagnoses: The differential diagnosis associated with the presentation includes SAH/SDH/ICH/nose fracture/orbital fracture/maxillary fracture Independent Interpretation I performed an independent interpretation of an: CT Scan Radiology Impression Discussion of test interpretation with radiology: I have reviewed the radiologist's reading. Discharge Plan Discharge Clinical Impression: Nasal bone fracture Patient Disposition: Home, Self-Care Instructions: Nasal Fracture (ED) Additional Instructions: Local care as advised Apply ice pack and bacitracin ointment Prescriptions: No Action citalopram 20 mg tablet 20 mg PO DAILY Qty: 90 2RF estradiol 0.5 mg tablet 0.5 mg PO DAILY Qty: 90 0RF cholecalciferol (vitamin D3) 25 mcg (1,000 unit) capsule 25 mcg PO DAILY Adult Probiotic 3 billion cell capsule 3,000 mmu cells PO DAILY Rx Instructions: administer with a meal flaxseed oil 1,000 mg capsule 1,000 mg PO DAILY Rx Instructions: administer with a meal cyanocobalamin (vitamin B-12) 1,000 mcg capsule 1,000 mcg PO DAILY diclofenac sodium [Voltaren Arthritis Pain] 1 % gel 4 g topical QID Qty: 100 2RF Rx Instructions: apply to single knee, ankle, foot; for foot includes sole/toes/top of foot amoxicillin 500 mg capsule 2,000 mg PO .COMPLEX Qty: 4 0RF Rx Instructions: 2,000 mg orally one hour before the procedure; Interventions: ED Discharge Assessment Last Done: 06/12/23 21:30 Discharge Date/Time: 06/12/23 21:30
[2023-06-12 18:55] VITALS: BP 146/74; BP 168/71; PULSE 86; PULSE 92; RESP 16; TEMP 36.8; O2SAT 94; O2SAT 98; BMI 25.3
[2023-06-12] MEDS: Ibuprofen 600 MG TABLET PO (20:49)
[2023-06-12] MEDS: Bacitracin Oint 0.9 GM PACKET 1 APPL TOPICAL (21:29)
== END 2023-06-12 21:30 | disposition home or self-care (01) ==
PROVIDERS: Emergency Provider Internal Medicine
DX: S02.2XXA Fracture of nasal bones, initial encounter for closed fracture (principal); S00.31XA Abrasion of nose, initial encounter; W01.0XXA Fall on same level from slipping, tripping and stumbling without subsequent striking against object, initial encounter; Y93.9 Activity, unspecified; Y92.014 Private driveway to single-family (private) house as the place of occurrence of the external cause; Y99.9 Unspecified external cause status
CPT/HCPCS: 70450; 70486; 72125; 99284

== ENCOUNTER 2023-07-11 11:11 | Outpatient (REF) | payer MEDICARE, MEDICAID, SELFPAY ==
[2023-07-11 11:40] LABS: Estimated Average Glucose 114 mg/dL; Hemoglobin A1c % 5.6 % (<6.0)
[2023-07-11 12:25] LABS: Alanine Aminotransferase 11 U/L (0-31); Albumin Level 4.1 g/dL (3.5-5.0); Alkaline Phosphatase 40 U/L (39-117); Anion Gap 12 (12-20); Aspartate Amino Transferase 17 U/L (5-31); Bilirubin Total 0.4 mg/dL (0.0-1.0); Blood Urea Nitrogen 19 mg/dL (9-16); Calcium 9.9 mg/dL (8.4-10.2); Carbon Dioxide 27 mmol/L (22-29); Chloride 107 mmol/L (96-108); Cholesterol 236 mg/dL (<200); Estimated Glomerular Filt Rate 52; Glucose Random 92 mg/dL (60-115); HDL Cholesterol 48 mg/dL (>40); LDL Cholesterol Calculated 158 mg/dL (<100); Potassium 3.9 mmol/L (3.3-5.1); Sodium 142 mmol/L (135-145); Total Protein 7.5 g/dL (6.5-8.0); Triglycerides 151 mg/dL (<150)
[2023-07-11 15:55] LABS: Appearance Urine Clear; Color Urine Yellow; Glucose Urine UA Negative (Negative); Leukocyte Esterase Urine Negative (Negative); Nitrite Urine Negative (Negative); PH 5.5 (5.0-9.0); Urine Blood Negative (Negative); Urine Ketones Negative (Negative); Urine Protein Negative (Neg-Trace)
== END 2023-07-11 11:12 | disposition home or self-care (01) ==
LOC: HO.LAB 11:11
PROVIDERS: PCP Internal Medicine; Visit Provider Internal Medicine
DX: N39.0 Urinary tract infection, site not specified (principal); E78.00 Pure hypercholesterolemia, unspecified
CPT/HCPCS: 36415; 80053; 80061; 81003; 83036

== ENCOUNTER 2023-08-08 14:33 | Outpatient (AMB) | payer MEDICARE, MEDICAID, SELFPAY ==
[2023-08-08 14:34] VITALS: BP 124/70; PULSE 69; O2SAT 95; BMI 24.4
--- NOTE | 2023-08-08 14:34 | A.OFFPC_ITS ---
Vital Signs 08/08/23 14:34 Height 5 ft 7 in Weight 156 lb BMI 24.4 BP 124/70 Blood Pressure Location Lt brachial Position Sitting Pulse 69 Pulse Source Pulse Oximeter Pulse Oximetry (%) 95 Oxygen Delivery Method Room Air Intake Visit Reasons: IGT, Cholesterol Flask Maker Required: No Allergies tramadol [TRAMADOL] Allergy (Severe, Verified 08/08/23 14:38) THROAT SWELLING aspirin [ASPIRIN] Allergy (Intermediate, Verified 08/08/23 14:38) GI UPSET - ABD PAIN, pain morphine [MORPHINE] Allergy (Intermediate, Verified 08/08/23 14:38) JITTERY, pain nitrofurantoin [From MACROBID] Allergy (Intermediate, Verified 08/08/23 14:38) HIVES codeine [CODEINE] Allergy (Unknown, Verified 08/08/23 14:38) pain oxycodone [Percocet] Allergy (Unknown, Verified 08/08/23 14:38) pain Sulfa (Sulfonamide Antibiotics) Allergy (Unknown, Verified 08/08/23 14:38) Nausea, diarrhea mirabegron [From Myrbetriq] Adverse Reaction (Intermediate, Verified 08/08/23 14:38) Dizziness sulfamethoxazole [From BACTRIM] Adverse Reaction (Intermediate, Verified 08/08/23 14:38) NAUSEA/DIARRHEA trimethoprim [From BACTRIM] Adverse Reaction (Intermediate, Verified 08/08/23 14:38) NAUSEA/DIARRHEA Propoxyphene HCl Allergy (Unknown, Uncoded 08/08/23 14:38) Unknown From DARVOCET-N 100 Adverse Reaction (Intermediate, Uncoded 08/08/23 14:38) ABD PAIN - NAUSEA Medication List - Last Reconciled 08/08/23 by Fabiano Mckeon MD amoxicillin 2,000 mg orally one hour before the procedure; cholecalciferol (vitamin D3) 25 mcg PO DAILY citalopram 20 mg PO DAILY cyanocobalamin (vitamin B-12) 1,000 mcg PO DAILY diclofenac sodium 1% (Voltaren Arthritis Pain) 4 grams topical QID estradiol 0.5 mg PO DAILY flaxseed oil 1,000 mg PO DAILY lactobacillus combination no.8 (Adult Probiotic) 3,000 mmu cells PO DAILY [prevagen PO .QD] Tobacco use date assessed: 08/08/23 Fall risk assessment: No Falls in past year Last assessed Fall Risk: 08/08/23 Dental Screening Dental Screen Date: 08/08/23 Did you have a dental visit in the last 12 months?: Yes Did you have a dental problem in the last 6 months where you did not have access to dental care?: No Was dental information given to patient?: Patient has dentist HPI IGT, Cholesterol HPI Details 77-year-old female with knee osteoarthri tis impaired glucose tolerance generalized anxiety disorder hypercholesterolemia last seen in January 2023. Patient's mammogram is up-to-date colonoscopy due bone density normal patient comes in for follow-up.. Review of the notes had a fall tripping on the pavement May 2023 hitting her nose nasal bone fracture. Dr. Galdamez has told patient - no more. cholesterol has been high and decline med. R leg cord feeling still there has superficial throbophlebitis- will refe to vascular surgeon [facility] Medical History (Updated 08/08/23 @ 18:31 by Fabiano Mckeon MD) Age-related osteoporosis without current pathological fracture Right leg pain Screening for breast cancer Overactive bladder Degenerative disc disease, lumbar Allergic rhinitis Mixed incontinence Hypercholesterolemia Vitamin D deficiency Surgical History History of cataract surgery History of arthroscopy of left knee History of shoulder surgery History of hysterectomy History of cholecystectomy Family History Father Diabetes Myocardial infarction Heart disease Mother Heart disease Chronic mental illness Stomach cancer Sister Esophageal cancer Brother Esophageal cancer Paternal Grandfather Heart disease Social History Housing: House Alcohol intake: current Alcohol intake frequency: holidays/special occasions only Patient Tobacco Use Status: Never used Tobacco e-Cigarette/Vaping Use: Never Used Second Hand Smoke Exposure: No service: No Current occupational status: retired Cognitive needs: No Hearing needs: No Vision needs: Yes Questionnaire PHQ-9 Over the last 2 weeks, how often have you been bothered by any of the following problems? 1. Little interest or pleasure in doing things: more than half the days 2. Feeling down, depressed, or hopeless: more than half the days 3. Trouble falling or staying asleep, or sleeping too much: more than half the days 4. Feeling tired or having little energy: more than half the days 5. Poor appetite or overeating: more than half the days 6. Feeling bad about yourself - or that you are a failure or have let yourself or your family down: more than half the days 7. Trouble concentrating on things, such as reading the newspaper or watching television: not at all 8. Moving or speaking so slowly that other people could have noticed. Or the opposite - being so fidgety or restless that you have been moving around a lot more than usual: not at all 9. Thoughts that you would be better off or of hurting yourself in some way: not at all Total score: 12 Depression Screening Interpretation: Negative Depression Screening Done: Yes 44361 - PHQ-9 Billing: Yes Source: Developed by Drs. Naeem Garza, Belia Leone, Esa Amaral and colleagues, with an educational dino from [employer] Thrive Questionnaire Date Thrive assessed: 08/08/23 I am a: Patient What is your living situation today?: I have a steady place to live Within the past 12 months, did the food you bought not last and you didn't have the money to get more?: Never true Within the past 12 months, did you worry whether your food would run out before you got money to buy more?: Never true Do you have trouble paying for medicines?: No Do you have trouble getting transportation to medical appointments?: No Do you have trouble paying your heating and electricity bill?: No Do you have trouble taking care of your child, family member or friend?: No Do you have trouble with day-to-day activities such as bathing, preparing meals, shopping, managing finances, etc.?: No Are you currently unemployed and looking for a job?: No Are you interested in more education?: No AUDIT C Alcohol Use Questionnaire (AUDIT-C) 1. How often do you have a drink containing alcohol?: 2-3 times a week 2. How many drinks containing alcohol do you have on a typical day when you are drinking?: 1 or 2 3. How often do you have six or more drinks on one occasion?: Never Total Score: 3 Score Reviewed/Action Taken: No TEZ-7 AMB Questionnaire TEZ-7 Date TEZ - 7 assessed: 08/08/23 Feeling nervous, anxious, or on edge: 1 = Several days Not being able to stop or control worryin = Several days Worrying too much about different things: 0 = Not at all Trouble relaxin = Not at all Being so restless that it is hard to sit still: 0 = Not at all Becoming easily annoyed or irritable: 0 = Not at all Feeling afraid as if something awful might happen: 0 = Not at all Total TEZ-7 score (0-4 normal; 5-9 mild; 10-14 moderate; 15-21 severe): 2 Source: Developed by Drs. Naeem Garza, Belia Leone, Esa Amaral and colleagues, with an educational dino from [employer] Physical exam (Primary Care) Vital Signs: Last Vital Signs Pulse 69 08/08/23 14:34 BP 124/70 08/08/23 14:34 Pulse Ox 95 08/08/23 14:34 Oxygen Delivery Method Room Air 08/08/23 14:34 BMI result Body Mass Index 24.4 Tobacco/Smoking Status: Tobacco use Status Tobacco use date assessed 08/08/23 08/08/23 14:35 Patient Tobacco Use Status Never used Tobacco 08/08/23 14:35 e-Cigarette/Vaping Use Never Used 08/08/23 14:35 PHQ-9: PHQ-9 Score PHQ-9: Total score 12 08/08/23 14:58 Depression Screening Interpretation: Negative Thrive Assessment: Date of Thrive Assessment Date Thrive assessed 08/08/23 08/08/23 14:35 Const General: alert; No acute distress Eyes Conjunctivae: conjunctivae normal Resp Auscultation: clear to auscultation bilaterally Cardio Rate: regular rate Rhythm: regular rhythm GI Inspection: Yes normal to inspection Extrem General: Yes normal to inspection and No edema Assessment and Plan Assessment & Plan (1) Hypercholesterolemia: Code(s): E78.00 - Pure hypercholesterolemia, unspecified Plan: Avoid fried foods, chicken skin, eggs, butter margarine, pastries and meat. Be it pork or beef they have a lot of cholesterol LDL goal of less than 130 and triglyceride of less than 150 (2) Impaired fasting blood sugar: Code(s): R73.01 - Impaired fasting glucose Plan: Decrease the amount of carbohydrate intake, pasta, bread, rice and potatoes are all sugar and that is aside from all the sweet stuff, remember that fruits are good but they are Sweet also. (3) Nasal bone fracture: Comment: FallMay 2023 Code(s): S02.2XXA - Fracture of nasal bones, initial encounter for closed fracture Qualifiers: Encounter type: sequela Fracture type: closed Qualified Code(s): S02.2XXS - Fracture of nasal bones, sequela Plan: Resolving (4) Generalized anxiety disorder: Code(s): F41.1 - Generalized anxiety disorder Plan: Continue with therapy. (5) Superficial thrombophlebitis of right leg: Comment: November 2022No DVT demonstrated in the right lower extremity. Superficial thrombophlebitis of the greater saphenous vein in the calf. Code(s): I80.01 - Phlebitis and thrombophlebitis of superficial vessels of right lower extremity Plan: advised to refer tovascular surgeon for further evaluation and management Orders: Referrals Vascular Surgery Referral I80.01 - Phlebitis and thrombophlebitis of superficial vessels of right lower extremity Coding Level of Care Code Est Pt Level 4 (79799) Diagnoses Hypercholesterolemia E78.00 Impaired fasting blood sugar R73.01 Closed fracture of nasal bone, sequela S02.2XXS Encounter type: sequela Fracture type: closed Generalized anxiety disorder F41.1 Superficial thrombophlebitis of right leg I80.01
== END 2023-08-08 15:17 | disposition home or self-care (01) ==
PROVIDERS: PCP Internal Medicine; Visit Provider Internal Medicine
DX: E78.00 Pure hypercholesterolemia, unspecified (principal); R73.01 Impaired fasting glucose; S02.2XXS Fracture of nasal bones, sequela; F41.1 Generalized anxiety disorder; I80.01 Phlebitis and thrombophlebitis of superficial vessels of right lower extremity
CPT/HCPCS: 99214

== ENCOUNTER 2023-10-17 10:37 | Outpatient (AMB) | payer MEDICARE, MEDICAID, SELFPAY ==
[2023-10-17 10:41] VITALS: BMI 24.0
--- NOTE | 2023-10-17 10:41 | MHC.OFFVIS ---
Intake Vital Signs 10/17/23 10:41 Height 5 ft 7 in Weight 153 lb BMI 24.0 Intake Visit Reasons: MECHANICAL MANAGER/PCP ref for superficial thrombophlebitis R GSV Intake Note: MECHANICAL MANAGER here pcp referral for superficial thrombophlebitis R GSV, pt reports have pain most time in morning. Scalemaker Required: No Information Interpreted: non-clinical & clinical Life Educator: Life Educator Present Accompanied by: Self / Same As Patient Allergies tramadol [TRAMADOL] Allergy (Severe, Verified 10/17/23 10:45) THROAT SWELLING aspirin [ASPIRIN] Allergy (Intermediate, Verified 10/17/23 10:45) GI UPSET - ABD PAIN, pain morphine [MORPHINE] Allergy (Intermediate, Verified 10/17/23 10:45) JITTERY, pain nitrofurantoin [From MACROBID] Allergy (Intermediate, Verified 10/17/23 10:45) HIVES codeine [CODEINE] Allergy (Unknown, Verified 10/17/23 10:45) pain oxycodone [Percocet] Allergy (Unknown, Verified 10/17/23 10:45) pain Sulfa (Sulfonamide Antibiotics) Allergy (Unknown, Verified 10/17/23 10:45) Nausea, diarrhea mirabegron [From Myrbetriq] Adverse Reaction (Intermediate, Verified 10/17/23 10:45) Dizziness sulfamethoxazole [From BACTRIM] Adverse Reaction (Intermediate, Verified 10/17/23 10:45) NAUSEA/DIARRHEA trimethoprim [From BACTRIM] Adverse Reaction (Intermediate, Verified 10/17/23 10:45) NAUSEA/DIARRHEA Propoxyphene HCl Allergy (Unknown, Uncoded 10/17/23 10:45) Unknown From DARVOCET-N 100 Adverse Reaction (Intermediate, Uncoded 10/17/23 10:45) ABD PAIN - NAUSEA HPI MECHANICAL MANAGER/PCP ref for superficial thrombophlebitis R GSV HPI Details Very pleasant 78-year-old female patient presents for painful varicose veins. Complaints include pain over varicosities, swelling of lower extremities, cramping, fatigue, and heaviness of the lower extremities. 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 It is noted more so in right leg. Of note she reports that it became more prominent after right knee surgery in March of 2023. Patient reports prior sclerotherapy by Dr. Handley nearly 7 years prior Patient denies any history of DVT/ PE. Patient denies any history of phlebitis. Trial of compression includes - [id number] They now present for vascular evaluation regarding their varicose veins. [facility] Medical History Age-related osteoporosis without current pathological fracture Right leg pain Screening for breast cancer Overactive bladder Degenerative disc disease, lumbar Allergic rhinitis Mixed incontinence Hypercholesterolemia Vitamin D deficiency Surgical History History of cataract surgery History of arthroscopy of left knee History of shoulder surgery History of hysterectomy History of cholecystectomy Family History Father Diabetes Myocardial infarction Heart disease Mother Heart disease Chronic mental illness Stomach cancer Sister Esophageal cancer Brother Esophageal cancer Paternal Grandfather Heart disease Social History Housing: House Alcohol intake: current Alcohol intake frequency: holidays/special occasions only Patient Tobacco Use Status: Never used Tobacco e-Cigarette/Vaping Use: Never Used Second Hand Smoke Exposure: No service: No Current occupational status: retired Cognitive needs: No Hearing needs: No Vision needs: Yes Review of Systems Const Reports as per HPI ENT Reports no additional complaints Card Denies chest pain, Denies chest pain at rest and Denies chest pain with activity Resp Denies chest congestion and Denies cough GI Reports no additional complaints Musc Details: pain over varicosities, aching of lower extremities, swelling, cramping, heaviness and tiredness, itching Denies abnormal gait Skin/Breast Reports pruritus and Denies wounds Neuro Reports no additional complaints and Denies abnormal gait Psych Denies no additional complaints Physical Exam Vital Signs: BMI result Body Mass Index 24.0 Const General: cooperative, healthy appearing and comfortable Orientation/consciousness: oriented to person, oriented to place and oriented to time Neck Carotids: no bruits Chest Chest palpation & inspection: normal inspection of the chest and normal palpation of entire chest wall Resp Effort & Inspection: normal respiratory effort and able to speak in complete sentences Cardio Rate: regular rate Heart sounds: S1 normal heart sound present and S2 normal heart sound present Peripheral pulses: Peripheral pulses 2+ throughout GI Inspection: Yes normal to inspection Skin Other: +2 edema, large rope-like varicosities greater than 4 mm CEAP Classification C4 - skin color changes Ep - Etiology Primary As - superficial veins P - reflux General skin exam: dry skin Neuro General: oriented to person, oriented to place and oriented to time Extrem Right lower extremity: full ROM, normal capillary refill and edema Left lower extremity: full ROM, normal capillary refill and edema Psych Mental Status: mental status grossly normal Assessment & Plan Assessment & Plan (1) Varicose veins of right lower extremity with inflammation: Code(s): I83.11 - Varicose veins of right lower extremity with inflammation Plan: In short, the patient has evidence of venous insufficiency. I have discussed the pathophysiology with the patient. In addition I have provided informational material regarding venous disease to the patient. We have discussed conservative measures including compression, elevation, and exercise. I have also provided a handout regarding appropriate use of compression stockings and where to purchase good compression stockings as well. I have taken the liberty of ordering venous insufficiency testing with the patient. They will follow up with me after testing. The patient had an opportunity to ask questions regarding the treatment plan. All questions were answered. Imaging studies, laboratory studies and physical exam results were discussed and reviewed in detail. No major barriers to understanding were identified. The patient expressed understanding and agreement with the above treatment plan. The patient is aware they should contact our office by phone for worsening of the current condition or the appearance of new symptoms. Thank you for allowing me to participate in the vascular care of this patient. If you have any questions or concerns regarding the treatment for the above condition please do not hesitate to contact me. The office telephone contact is [phone]. This note is constructed using voice recognition software. While every effort has been made to ensure accuracy, home lighting adviser errors may have been included. Thank you for allowing me to participate in the care of your patient. Yours sincerely, Anthony Castellanos MD, FACS, R.P.V.I. (2) Superficial thrombophlebitis of right leg: Comment: November 2022No DVT demonstrated in the right lower extremity. Superficial thrombophlebitis of the greater saphenous vein in the calf. Code(s): I80.01 - Phlebitis and thrombophlebitis of superficial vessels of right lower extremity Plan: We did discuss conservative measures should this reoccur including warm compresses and use of nonsteroidal anti-inflammatories. Orders: Orders US venous duplex LE BI 1 Week I83.11 - Varicose veins of right lower extremity with inflammation Coding Level of Care Code New Pt Level 4 (37650) Diagnoses Varicose veins of right lower extremity with inflammation I83.11 Superficial thrombophlebitis of right leg I80.01
== END 2023-10-17 11:07 | disposition home or self-care (01) ==
PROVIDERS: PCP Internal Medicine; Visit Provider Surgery Vascular Surgery
DX: I83.11 Varicose veins of right lower extremity with inflammation (principal); I80.01 Phlebitis and thrombophlebitis of superficial vessels of right lower extremity
CPT/HCPCS: 99203

== ENCOUNTER → 2023-10-17 10:37 | Outpatient (BNVA) | payer MEDICARE, MEDICAID, SELFPAY | PROVIDERS: PCP Internal Medicine; Visit Provider Surgery Vascular Surgery | DX: I83.11 Varicose veins of right lower extremity with inflammation (principal); I80.01 Phlebitis and thrombophlebitis of superficial vessels of right lower extremity | CPT/HCPCS: 99202 ==

== ENCOUNTER 2023-10-24 12:50 | Outpatient (REF) | payer MEDICARE, MEDICAID, SELFPAY ==
--- NOTE | ~2023-10-24 | US_ITS ---
EXAMINATION: US LOWER EXTREMITY VENOUS (REFLUX EXAM), BILATERAL CLINICAL INDICATION: Chronic venous insufficiency with lower extremity varicose veins with pain and swelling. History of prior thrombophlebitis and venous treatments COMPARISON: Ultrasound from 11/29/2022 TECHNIQUE: Color flow triplex imaging and compression Doppler was performed to evaluate both the deep and the superficial systems bilaterally. To evaluate the superficial system, the examination was performed in the upright position. Color-flow Doppler ultrasound and compression ultrasound were utilized. In addition, maneuvers were utilized to demonstrate reflux. FINDINGS: 1. DEEP VENOUS ULTRASOUND OF THE RIGHT LOWER EXTREMITY: Common Femoral Vein: Compressible, normal respiratory variation and augmented flow. Femoral Vein: Compressible, normal color flow and augmentation. Popliteal Vein: Compressible, normal augmentation. Deep Reflux: There is no evidence of reflux in the deep system in either the common femoral vein, superficial femoral or the popliteal vein. There is no evidence of a Briones's cyst. 2. SUPERFICIAL ULTRASOUND WITH DOPPLER OF RIGHT LOWER EXTREMITY: GREAT SAPHENOUS VEIN: Saphenofemoral Junction: 0.7 cm; Reflux: 0 ms Proximal Thigh: 0.2 cm; Reflux: 0 ms Mid Thigh: Thrombosed Above Knee: Thrombosed At Knee: Not visualized Below Knee: 0.4 cm; Reflux: 2864 ms Mid Calf: 0.3 cm; Reflux: 2900 ms Ankle: 0.2 cm; Reflux: 2860 ms DUPLICATED MEDIAL GREAT SAPHENOUS VEIN: Diameter: None imaged Reflux: NA DUPLICATED LATERAL GREAT SAPHENOUS VEIN: Diameter: None imaged Reflux: NA SMALL SAPHENOUS VEIN: Saphenopopliteal Junction: 0.1 cm; Reflux: 0 ms Proximal: 0.1 cm; Reflux: 0 ms Distal: 0.3 cm; Reflux: 0 ms VEIN OF GIACOMINI: Size: NA Reflux: NA PERFORATORS: Location: Posterior calf extending into the small saphenous vein Size: 0.3 cm Reflux: None VARICOSITIES: Location: Proximal thigh off the residual great saphenous vein, proximal and mid calf Size: 0.2 to 0.3 cm Reflux: 2944 ms 3. DEEP VENOUS ULTRASOUND OF THE LEFT LOWER EXTREMITY: Common Femoral Vein: Compressible, normal respiratory variation and augmented flow. Femoral Vein: Compressible, normal color flow and augmentation. Popliteal Vein: Compressible, normal augmentation. Deep Reflux: There is no evidence of reflux in the deep system in either the common femoral vein, superficial femoral or the popliteal vein. There is no evidence of a Briones's cyst. 4. SUPERFICIAL ULTRASOUND WITH DOPPLER OF LEFT LOWER EXTREMITY: GREAT SAPHENOUS VEIN: Saphenofemoral Junction: 0.8 cm; Reflux: 0 ms Proximal Thigh: 0.4 cm; Reflux: 0 ms Mid Thigh: 0.3 cm; Reflux: 984 ms Above Knee: 0.3 cm; Reflux: 0 ms At Knee: 0.3 cm; Reflux: 2920 ms Below Knee: 0.4 cm; Reflux: 2796 ms Mid Calf: 0.5 cm; Reflux: 2800 ms Ankle: 0.2 cm; Reflux: 2948 ms DUPLICATED MEDIAL GREAT SAPHENOUS VEIN: Diameter: None imaged Reflux: NA DUPLICATED LATERAL GREAT SAPHENOUS VEIN: Diameter: None imaged Reflux: NA SMALL SAPHENOUS VEIN: Saphenopopliteal Junction: 0.1 cm; Reflux: 0 ms Proximal: 0.1 cm; Reflux: 0 ms Distal: 0.2 cm; Reflux: 0 ms VEIN OF GIACOMINI: Size: NA Reflux: NA PERFORATORS: Location: Posterior mid calf into the small saphenous vein, proximal medial calf into the varicosity Size: 0.2 to 0.4 cm Reflux: 3004 seconds in the medial calf VARICOSITIES: Location: None greater than 3 cm Size: NA Reflux: NA US/US venous duplex LE BI IMPRESSION: Right: Occluded segment of the right great saphenous vein from the mid thigh to the knee. Residual great saphenous vein within the calf with severe reflux and multiple branching varicose veins. Left: Severe reflux in the left great saphenous vein within the thigh and calf as described above.
== END 2023-10-24 12:51 | disposition home or self-care (01) ==
LOC: HO.US 12:50
PROVIDERS: PCP Internal Medicine; Visit Provider Surgery Vascular Surgery
DX: I83.11 Varicose veins of right lower extremity with inflammation (principal)
CPT/HCPCS: 93970

== ENCOUNTER 2023-11-09 13:48 | Outpatient (AMB) | payer MEDICARE, MEDICAID, SELFPAY ==
[2023-11-09 13:51] VITALS: BP 138/92; PULSE 75; O2SAT 97; BMI 24.3
--- NOTE | 2023-11-09 13:51 | A.OFFVIS_ITS ---
Intake Vital Signs 11/09/23 13:51 11/09/23 14:13 Height 5 ft 7 in Weight 155 lb BMI 24.3 BP 138/92 H 138/70 Blood Pressure Location Lt brachial Lt brachial Position Sitting Sitting Pulse 75 Pulse Source Pulse Oximeter Pulse Oximetry (%) 97 Oxygen Delivery Method Room Air Intake Visit Reasons: SAWV Allergies tramadol [TRAMADOL] Allergy (Severe, Verified 11/09/23 13:52) THROAT SWELLING aspirin [ASPIRIN] Allergy (Intermediate, Verified 11/09/23 13:52) GI UPSET - ABD PAIN, pain morphine [MORPHINE] Allergy (Intermediate, Verified 11/09/23 13:52) JITTERY, pain nitrofurantoin [From MACROBID] Allergy (Intermediate, Verified 11/09/23 13:52) HIVES codeine [CODEINE] Allergy (Unknown, Verified 11/09/23 13:52) pain oxycodone [Percocet] Allergy (Unknown, Verified 11/09/23 13:52) pain Sulfa (Sulfonamide Antibiotics) Allergy (Unknown, Verified 11/09/23 13:52) Nausea, diarrhea mirabegron [From Myrbetriq] Adverse Reaction (Intermediate, Verified 11/09/23 13:52) Dizziness sulfamethoxazole [From BACTRIM] Adverse Reaction (Intermediate, Verified 11/09/23 13:52) NAUSEA/DIARRHEA trimethoprim [From BACTRIM] Adverse Reaction (Intermediate, Verified 11/09/23 13:52) NAUSEA/DIARRHEA Propoxyphene HCl Allergy (Unknown, Uncoded 11/09/23 13:52) Unknown From DARVOCET-N 100 Adverse Reaction (Intermediate, Uncoded 11/09/23 13:52) ABD PAIN - NAUSEA Medication List - Last Reconciled 11/09/23 by Fabiano Mckeon MD cholecalciferol (vitamin D3) 25 mcg PO DAILY citalopram 20 mg PO DAILY cyanocobalamin (vitamin B-12) 1,000 mcg PO DAILY estradiol 0.5 mg PO DAILY lactobacillus combination no.8 (Adult Probiotic) 3,000 mmu cells PO DAILY [prevagen PO .QD] HPI SAWV HPI Details 78-year-old female with hypercholesterol emia impaired glucose tolerance generalized anxiety disorder last seen in July 2023. Patient had a superficial thrombophlebitis of the right leg and seeing vascular surgeon. Patient's mammogram is due in November and is up-to-date colonoscopy is up-to-date bone density normal the last time. Patient had an ultrasound of the superficial vessels October4Right: Occluded segment of the right great saphenous vein from the mid thigh to the knee. Residual great saphenous vein within the calf with severe reflux and multiple branching varicose veins. Left: Severe reflux in the left great saphenous vein within the thigh and calf as described above. FOR[facility]LY [facility], [facility] Medical History Age-related osteoporosis without current pathological fracture Right leg pain Screening for breast cancer Overactive bladder Degenerative disc disease, lumbar Allergic rhinitis Mixed incontinence Hypercholesterolemia Vitamin D deficiency Surgical History History of cataract surgery History of arthroscopy of left knee History of shoulder surgery History of hysterectomy History of cholecystectomy Family History Father Diabetes Myocardial infarction Heart disease Mother Heart disease Chronic mental illness Stomach cancer Sister Esophageal cancer Brother Esophageal cancer Paternal Grandfather Heart disease Social History (Updated 11/09/23 @ 14:16 by Fabiano Mckeon MD) Housing: House Alcohol intake: current Alcohol intake frequency: holidays/special occasions only Comment: glass of wine once a month Patient Tobacco Use Status: Never used Tobacco e-Cigarette/Vaping Use: Never Used Second Hand Smoke Exposure: No service: No Current occupational status: retired Cognitive needs: No Hearing needs: No Vision needs: Yes Questionnaire Medicare Wellness Checkup [age] What gender do you identify with?: female During the past 4 weeks, how much have you been bothered by emotional problems such as feeling anxious, depressed, irritable, sad or downhearted, and blue?: slightly During the past 4 weeks, has your physical & emotional health limited your social activities with family, friends, neighbors, or groups?: not at all During the past 4 weeks, how much bodily pain have you generally had?: mild pain During the past 4 weeks, was someone available to help you if you needed & wanted help?: yes, as much as I wanted During the past 4 weeks, what was the hardest physical activity you could do for at least 2 minutes?: moderate Can you get to places out of walking distance without help? (For eg., can you travel alone on buses, taxis or drive your car?): Yes Can you go shopping for groceries or clothes without someone's help?: Yes Can you prepare your own meals?: Yes Can you do your housework without help?: Yes Because of any health problems, do you need the help of another person with your personal care needs such as eating, bathing, dressing or getting around the house?: No Can you handle your own money without help?: Yes During the past 4 weeks, how would you rate your health in general?: good During the past 4 weeks how have things been going for you?: good & bad parts about equal Are you having difficulties driving your car?: sometimes Do you always fasten your seat belt when you are in a car?: yes, usually During past 4 weeks, have you been bothered by the following: never: Sexual problems? and Problems using the telephone?, seldom: Falling or dizzy when standing up, Trouble eating well? and Teeth or denture problems? and always: Tiredness or fatigue? Have you fallen 2 or more times in the past year?: Yes Are you afraid of falling?: Yes Are you a smoker?: no During the past 4 weeks, how many drinks of wine, beer, or other alcoholic beverages did you have?: 1 drink or less per week Do you exercise for about 20 minutes 3 or more times a week?: no, I usually do not exercise this much Have you been given information to help with the following?: no: Hazards in your house that might hurt you? and no: Keeping track of your medications? How often do you have trouble taking medicines the way you have been told to take them?: I always take medicine as prescribed How confident are you that you can control & manage most of your health problems?: somewhat confident What is your race?: White PHQ-9 Over the last 2 weeks, how often have you been bothered by any of the following problems? 1. Little interest or pleasure in doing things: more than half the days 2. Feeling down, depressed, or hopeless: more than half the days 3. Trouble falling or staying asleep, or sleeping too much: more than half the days 4. Feeling tired or having little energy: more than half the days 5. Poor appetite or overeating: more than half the days 6. Feeling bad about yourself - or that you are a failure or have let yourself or your family down: more than half the days 7. Trouble concentrating on things, such as reading the newspaper or watching television: not at all 8. Moving or speaking so slowly that other people could have noticed. Or the opposite - being so fidgety or restless that you have been moving around a lot more than usual: not at all 9. Thoughts that you would be better off or of hurting yourself in some way: not at all Total score: 12 Depression Screening Interpretation: Negative Depression Screening Done: Yes 47355 - PHQ-9 Billing: Yes Source: Developed by Drs. Naeem Garza, Belia Leone, Esa Amaral and colleagues, with an educational dino from [employer]. Review of Systems Const Denies poor appetite and Denies weakness Eyes Denies no additional complaints ENT Reports Normal hearing present, Denies dizziness, Denies nasal congestion, Denies tinnitus and Denies sore throat Card Denies chest pain, Denies syncope, Denies rapid heart rate and Denies dyspnea Resp Denies cough and Denies dyspnea GI Denies change in stool character, Reports constipation, Denies diarrhea, Denies nausea and Denies vomiting Denies urinary frequency, Denies difficulty voiding and Denies dysuria Neuro Reports Normal hearing present, Denies confusion, Denies dizziness, Denies syncope and Denies weakness Psych Denies confusion Physical Exam Vital Signs: Last Vital Signs Pulse 75 11/09/23 13:51 BP 138/70 11/09/23 14:13 Pulse Ox 97 11/09/23 13:51 Oxygen Delivery Method Room Air 11/09/23 13:51 BMI result Body Mass Index 24.3 Const General: No confusion Orientation/consciousness: No confusion HEENT Head: Yes normocephalic Ears: external ears normal and TM's normal bilaterally Face and sinus: Yes normal facial exam Mouth: moist mucous membranes Throat: Yes tonsils normal Eyes Conjunctivae: conjunctivae normal Pupils: Equal, round and reactive pupils present and Pupil accommodation reflex normal Direct Ophthalmoscopy: normal light reflex Neck Neck: No lymphadenopathy Thyroid: Thyroid normal Chest Chest palpation & inspection: normal inspection of the chest Resp Effort & Inspection: normal respiratory effort and no audible wheezes Auscultation: clear to auscultation bilaterally, no crackles, no wheezes and lung sounds not diminished Cardio Rate: regular rate Rhythm: regular rhythm Peripheral pulses: radial pulses present and dorsalis pedis present GI Palpation (GI): no masses Auscultation: normal bowel sounds and normoactive bowel sounds Rectal Exam - Female: deferred Skin General skin exam: no rashes or lesions noted Rashes: no rashes Neuro General: No confusion Cranial nerves: Yes Equal, round and reactive pupils present and Yes Normal hearing present Cognition (Neuro): normal cognition Gait exam (Neuro): Normal gait present Motor exam (neuro): 5/5 motor strength present throughout Deep tendon reflexes (DTR's): Right brachioradialis reflex intensity grade: 2+, Left brachioradialis reflex intensity grade: 2+, Right patellar reflex intensity grade: 2+ and Left patellar reflex intensity grade: 2+ Extrem General: No edema Assessment & Plan Assessment & Plan (1) Medicare annual wellness visit, subsequent: Code(s): Z00.00 - Encounter for general adult medical examination without abnormal findings Plan: Keep well hydrated, eat healthy and adequate sleep and keep active. (2) Peripheral vascular disease: Code(s): I73.9 - Peripheral vascular disease, unspecified Plan: When sitting down elevate the legs, exercise, and support stockings patient follows up with vascular surgeon (3) Superficial thrombophlebitis of right leg: Comment: November 2022No DVT demonstrated in the right lower extremity. Superficial thrombophlebitis of the greater saphenous vein in the calf. Code(s): I80.01 - Phlebitis and thrombophlebitis of superficial vessels of right lower extremity Plan: When sitting down elevate the legs, exercise, and support stockings, nonsteroidals (4) Hypercholesterolemia: Code(s): E78.00 - Pure hypercholesterolemia, unspecified Plan: Avoid fried foods, chicken skin, eggs, butter margarine, pastries and meat. Be it pork or beef they have a lot of cholesterol LDL goal of less than 130 and triglyceride of less than 150 (5) Impaired fasting blood sugar: Code(s): R73.01 - Impaired fasting glucose Plan: Decrease the amount of carbohydrate intake, pasta, bread, rice and potatoes are all sugar and that is aside from all the sweet stuff, remember that fruits are good but they are Sweet also. (6) Generalized anxiety disorder: Code(s): F41.1 - Generalized anxiety disorder Plan: Continue with present medication (7) Foul smelling urine: Code(s): R82.90 - Unspecified abnormal findings in urine Plan: Urinalysis requested Orders: Orders Complete Blood Count Auto Diff Today E78.00 - Pure hypercholesterolemia, unspecified Comprehensive Met. Panel Today E78.00 - Pure hypercholesterolemia, unspecified Thyroid Stimulating Hormone Today E78.00 - Pure hypercholesterolemia, unspecified Vitamin B12 and Folate Today E78.00 - Pure hypercholesterolemia, unspecified AMB Urinalysis Automated Today R82.90 - Unspecified abnormal findings in urine, Z13.9 - Encounter for screening, unspecified Free T4 (Free Thyroxine) Today E78.00 - Pure hypercholesterolemia, unspecified Lipid Panel Today E78.00 - Pure hypercholesterolemia, unspecified Vitamin D 25-OH Total Today E78.00 - Pure hypercholesterolemia, unspecified Quality Reporting (2020) Depression/Bipolar (159/160/161/177) PHQ-9: Total score: 12 Coding Level of Care Code Medicare Subsequent (G0439) Diagnoses Medicare annual wellness visit, subsequent Z00.00 Peripheral vascular disease I73.9 Superficial thrombophlebitis of right leg I80.01 Hypercholesterolemia E78.00 Impaired fasting blood sugar R73.01 Generalized anxiety disorder F41.1 Foul smelling urine R82.90
[2023-11-09 14:13] VITALS: BP 138/70
== END 2023-11-09 14:39 | disposition home or self-care (01) ==
PROVIDERS: Visit Provider Internal Medicine
DX: Z00.00 Encounter for general adult medical examination without abnormal findings (principal); I73.9 Peripheral vascular disease, unspecified; I80.01 Phlebitis and thrombophlebitis of superficial vessels of right lower extremity; E78.00 Pure hypercholesterolemia, unspecified; R73.01 Impaired fasting glucose; F41.1 Generalized anxiety disorder; R82.90 Unspecified abnormal findings in urine
CPT/HCPCS: G0439

== ENCOUNTER 2023-11-14 11:30 | Outpatient (REF) | payer MEDICARE, MEDICAID, SELFPAY ==
[2023-11-14 11:53] LABS: MANUAL DIFF FLAG NO
[2023-11-14 12:45] LABS: Basophils Absolute Auto 0.1 X10*3/uL (0.0-0.2); Basophils Percent Auto 0.8 % (0-2); Eosinophils Absolute Auto 0.3 X10*3/uL (0.0-0.4); Eosinophils Percent Auto 3.5 % (0-4); Hemoglobin 12.3 g/dl (12.0-16.0); Imm Gran Abs Auto 0.01 X10*3/uL (0.00-0.03); Imm Gran Pct Auto 0.1 % (0.0-0.4); Lymphocytes Absolute Auto 3.1 X10*3/uL (1.2-4.9); Lymphocytes Percent Auto 43.2 % (20-40); Mean Corpuscular HGB Conc 32.4 g/dl (31.0-35.0); Mean Corpuscular Hemoglobin 25.9 pg (27.0-33.0); Mean Corpuscular Volume 80.2 fL (80.0-98.0); Mean Platelet Volume 11.1 fL (9.4-12.3); Monocytes Absolute Auto 0.6 X10*3/uL (0.1-1.2); Monocytes Percent Auto 8.6 % (2-11); Neutrophils Absolute Auto 3.1 x10*3/uL (2.0-8.3); Neutrophils Percent Auto 43.8 % (45-73); Platelet Count 283 X10*3/uL (160-400); Red Blood Count 4.74 X10*6/uL (4.20-5.50); Red Cell Distribution Width 14.6 % (11.0-16.0); White Blood Count 7.1 X10*3/uL (4.8-10.8)
[2023-11-14 13:11] LABS: Alanine Aminotransferase 10 U/L (0-31); Albumin Level 3.9 g/dL (3.5-5.0); Alkaline Phosphatase 36 U/L (39-117); Anion Gap 10 (12-20); Aspartate Amino Transferase 13 U/L (5-31); Bilirubin Total 0.4 mg/dL (0.0-1.0); Blood Urea Nitrogen 20 mg/dL (9-16); Calcium 9.4 mg/dL (8.4-10.2); Carbon Dioxide 30 mmol/L (22-29); Chloride 106 mmol/L (96-108); Cholesterol 222 mg/dL (<200); Estimated Glomerular Filt Rate 46; Glucose Random 87 mg/dL (60-115); HDL Cholesterol 46 mg/dL (>40); LDL Cholesterol Calculated 152 mg/dL (<100); Potassium 4.2 mmol/L (3.3-5.1); Sodium 142 mmol/L (135-145); Triglycerides 122 mg/dL (<150)
[2023-11-14 13:31] LABS: Thyroid Stimulating Hormone 3.56 uIU/mL (0.32-4.0); Vitamin D 25-OH Total 63.7 ng/mL (>30)
[2023-11-14 13:37] LABS: Folate 7.3 ng/mL (> or = 4.0); Vitamin B12 902 pg/mL (200-900)
== END 2023-11-14 11:31 | disposition home or self-care (01) ==
LOC: HO.LAB 11:30
PROVIDERS: PCP Internal Medicine; Visit Provider Internal Medicine
DX: E78.00 Pure hypercholesterolemia, unspecified (principal)
CPT/HCPCS: 36415; 80053; 80061; 82306; 82607; 82746; 84439; 84443; 85025

== ENCOUNTER 2023-11-21 12:57 | Outpatient (AMB) | payer MEDICARE, MEDICAID, SELFPAY ==
[2023-11-21 13:27] VITALS: BMI 24.0
--- NOTE | 2023-11-21 13:27 | MHC.OFFVIS ---
Vital Signs 11/21/23 13:27 Height 5 ft 7 in Weight 153 lb BMI 24.0 Intake Visit Reasons: follow up 10/25/2023 Intake Note: follow up 10/24/23, pt states she gets painful varicose veins, worse when on her feet. Painful at night, and has hx superficial thrombophlebitis Right GSV Accompanied by: Self / Same As Patient Allergies tramadol [TRAMADOL] Allergy (Severe, Verified 11/21/23 13:33) THROAT SWELLING aspirin [ASPIRIN] Allergy (Intermediate, Verified 11/21/23 13:33) GI UPSET - ABD PAIN, pain morphine [MORPHINE] Allergy (Intermediate, Verified 11/21/23 13:33) JITTERY, pain nitrofurantoin [From MACROBID] Allergy (Intermediate, Verified 11/21/23 13:33) HIVES codeine [CODEINE] Allergy (Unknown, Verified 11/21/23 13:33) pain oxycodone [Percocet] Allergy (Unknown, Verified 11/21/23 13:33) pain Sulfa (Sulfonamide Antibiotics) Allergy (Unknown, Verified 11/21/23 13:33) Nausea, diarrhea mirabegron [From Myrbetriq] Adverse Reaction (Intermediate, Verified 11/21/23 13:33) Dizziness sulfamethoxazole [From BACTRIM] Adverse Reaction (Intermediate, Verified 11/21/23 13:33) NAUSEA/DIARRHEA trimethoprim [From BACTRIM] Adverse Reaction (Intermediate, Verified 11/21/23 13:33) NAUSEA/DIARRHEA Propoxyphene HCl Allergy (Unknown, Uncoded 11/21/23 13:33) Unknown From DARVOCET-N 100 Adverse Reaction (Intermediate, Uncoded 11/21/23 13:33) ABD PAIN - NAUSEA HPI HPI follow up [facility] 10/25/2023: Details: Very pleasant 78-year-old female presents for follow-up regarding venous insufficiency. She had previous therapy on her right leg nearly [address] Handley[address] She has developed recurrent phlebitis on that right calf. It has been a source of pain and discomfort. She has been compliant with her compression stockings for nearly 7 years. It has provided minimal relief of late. She now presents for follow-up with venous insufficiency testing. [facility] Medical History Age-related osteoporosis without current pathological fracture Right leg pain Screening for breast cancer Overactive bladder Degenerative disc disease, lumbar Allergic rhinitis Mixed incontinence Hypercholesterolemia Vitamin D deficiency Surgical History History of cataract surgery History of arthroscopy of left knee History of shoulder surgery History of hysterectomy History of cholecystectomy Family History Father Diabetes Myocardial infarction Heart disease Mother Heart disease Chronic mental illness Stomach cancer Sister Esophageal cancer Brother Esophageal cancer Paternal Grandfather Heart disease Social History Housing: House Alcohol intake: current Alcohol intake frequency: holidays/special occasions only Comment: glass of wine once a month Patient Tobacco Use Status: Never used Tobacco e-Cigarette/Vaping Use: Never Used Second Hand Smoke Exposure: No service: No Current occupational status: retired Cognitive needs: No Hearing needs: No Vision needs: Yes Review of Systems Const Reports as per HPI ENT Reports no additional complaints Card Denies chest pain, Denies chest pain at rest and Denies chest pain with activity Resp Denies chest congestion and Denies cough GI Reports no additional complaints Musc Details: pain over varicosities, aching of lower extremities, swelling, cramping, heaviness and tiredness, itching Denies abnormal gait Skin/Breast Reports pruritus and Denies wounds Neuro Reports no additional complaints and Denies abnormal gait Psych Denies no additional complaints Physical Exam Vital Signs: BMI result Body Mass Index 24.0 Const General: cooperative, healthy appearing and comfortable Orientation/consciousness: oriented to person, oriented to place and oriented to time Neck Carotids: no bruits Chest Chest palpation & inspection: normal inspection of the chest and normal palpation of entire chest wall Resp Effort & Inspection: normal respiratory effort and able to speak in complete sentences Cardio Rate: regular rate Heart sounds: S1 normal heart sound present and S2 normal heart sound present Peripheral pulses: Peripheral pulses 2+ throughout GI Inspection: Yes normal to inspection Skin Other: +2 edema, large rope-like varicosities greater than 4 mm CEAP Classification C4 - skin color changes Ep - Etiology Primary As - superficial veins P - reflux General skin exam: dry skin Neuro General: oriented to person, oriented to place and oriented to time Extrem Right lower extremity: full ROM, normal capillary refill and edema Left lower extremity: full ROM, normal capillary refill and edema Psych Mental Status: mental status grossly normal Results Reviewed Results Reviewed: Brief summary of venous insufficiency testing is as follows: right great saphenous vein: Positive right small saphenous vein: negative right accessory vein: none present left great saphenous vein: Positive left small saphenous vein: negative left accessory vein: none present Please note there is no evidence of any venous aneurysms or significant tortuosity Assessment & Plan Assessment & Plan (1) Varicose veins of right lower extremity with inflammation: Code(s): I83.11 - Varicose veins of right lower extremity with inflammation Category: Medical Plan: This patient has varicose veins with inflammation. They continue to be a source of discomfort for the patient. The patient has tried conservative treatment with compression, leg elevation and exercise program for over 3 months time. They have been compliant with all treatment. This has provided minimal relief for the patient. I do not anticipate this course of treatment will alter the underlying etiology. The patient has been scheduled for lower extremity venous treatment inclusive of --- right great saphenous vein Cyanoacralate ablation. Risks, benefits, and complications of this procedure has been discussed in detail with the patient including but not limited to bleeding, infection, and the development of a DVT. The patient has demonstrated a clear understanding and has consented. We will schedule the patient as soon as possible. Thank you for allowing us to participate in this patient's care. If there are any questions or concerns please do not hesitate to contact us. Coding Level of Care Code Est Pt Level 4 (70092) Diagnoses Varicose veins of right lower extremity with inflammation I83.11
== END 2023-11-21 14:21 | disposition home or self-care (01) ==
PROVIDERS: PCP Internal Medicine; Visit Provider Surgery Vascular Surgery
DX: I83.11 Varicose veins of right lower extremity with inflammation (principal)
CPT/HCPCS: 99214

== ENCOUNTER → 2023-11-21 12:57 | Outpatient (BNVA) | payer MEDICARE, MEDICAID, SELFPAY | PROVIDERS: PCP Internal Medicine; Visit Provider Surgery Vascular Surgery | DX: I83.11 Varicose veins of right lower extremity with inflammation (principal) | CPT/HCPCS: 99212 ==

== ENCOUNTER 2023-11-27 11:18 | Outpatient (REF) | payer MEDICARE, MEDICAID, SELFPAY | END 2023-11-27 11:19 | disposition home or self-care (01) | LOC: HO.MAMMO 11:18 | PROVIDERS: PCP Internal Medicine; Visit Provider Internal Medicine | DX: Z12.31 Encounter for screening mammogram for malignant neoplasm of breast (principal) | CPT/HCPCS: 77063; 77067 ==

== ENCOUNTER → 2023-11-27 11:30 | Outpatient (BNV) | payer MEDICARE, MEDICAID, SELFPAY | PROVIDERS: PCP Internal Medicine; Visit Provider Radiology Diagnostic Radiology | DX: Z12.31 Encounter for screening mammogram for malignant neoplasm of breast (principal) | CPT/HCPCS: 77063; 77067 ==

== ENCOUNTER 2023-12-15 09:44 | Outpatient (AMB) | payer MEDICARE, SELFPAY ==
--- NOTE | 2023-12-19 08:39 | MHC.OFFVIS ---
Vital Signs 12/19/23 08:40 Height 5 ft 7 in Weight 153 lb BMI 24.0 Intake Visit Reasons: Right GSV Venaseal Accompanied by: Self / Same As Patient Allergies tramadol [TRAMADOL] Allergy (Severe, Verified 12/19/23 08:40) THROAT SWELLING aspirin [ASPIRIN] Allergy (Intermediate, Verified 12/19/23 08:40) GI UPSET - ABD PAIN, pain morphine [MORPHINE] Allergy (Intermediate, Verified 12/19/23 08:40) JITTERY, pain nitrofurantoin [From MACROBID] Allergy (Intermediate, Verified 12/19/23 08:40) HIVES codeine [CODEINE] Allergy (Unknown, Verified 12/19/23 08:40) pain oxycodone [Percocet] Allergy (Unknown, Verified 12/19/23 08:40) pain Sulfa (Sulfonamide Antibiotics) Allergy (Unknown, Verified 12/19/23 08:40) Nausea, diarrhea mirabegron [From Myrbetriq] Adverse Reaction (Intermediate, Verified 12/19/23 08:40) Dizziness sulfamethoxazole [From BACTRIM] Adverse Reaction (Intermediate, Verified 12/19/23 08:40) NAUSEA/DIARRHEA trimethoprim [From BACTRIM] Adverse Reaction (Intermediate, Verified 12/19/23 08:40) NAUSEA/DIARRHEA Propoxyphene HCl Allergy (Unknown, Uncoded 12/19/23 08:40) Unknown From DARVOCET-N 100 Adverse Reaction (Intermediate, Uncoded 12/19/23 08:40) ABD PAIN - NAUSEA PFSH Medical History Age-related osteoporosis without current pathological fracture Right leg pain Screening for breast cancer Overactive bladder Degenerative disc disease, lumbar Allergic rhinitis Mixed incontinence Hypercholesterolemia Vitamin D deficiency Surgical History History of cataract surgery History of arthroscopy of left knee History of shoulder surgery History of hysterectomy History of cholecystectomy Family History Father Diabetes Myocardial infarction Heart disease Mother Heart disease Chronic mental illness Stomach cancer Sister Esophageal cancer Brother Esophageal cancer Paternal Grandfather Heart disease Social History Housing: House Alcohol intake: current Alcohol intake frequency: holidays/special occasions only Comment: glass of wine once a month Patient Tobacco Use Status: Never used Tobacco e-Cigarette/Vaping Use: Never Used Second Hand Smoke Exposure: No service: No Current occupational status: retired Cognitive needs: No Hearing needs: No Vision needs: Yes Physical Exam Vital Signs: BMI result Body Mass Index 24.0 Office Procedures Vascular Office Procedure Details Details: Diagnosis: Right Leg varicose veins with inflammation Procedure: Endovenous Ablation of the right Great Saphenous Vein with VenaSeal Closure System Anesthesia: Local infiltration 5 cc, Estimated Blood Loss: min Specimen: none Duplex ultrasound was used to map out the insufficient saphenous vein, and access was determined and marked on the overlying skin. The depth and diameter of the vein(s) to be treated was documented. The patient was placed supine on the procedure table and the leg was prepped and draped using sterile technique. Ultasound guidance was again used to localize the access site. 1% lidocaine was injected as a local anesthetic in the subcutaneous tissues at the target location in the GSV in the lower leg. Using ultrasound guidance, access was gained at this location with the 19 gauge thin walled access needle and followed by introduction of a short guidewire, location confirmed with ultrasound. A small, 3 mm incision was made at the access site to allow for introduction and placement of the 7 Fr x7cm introducer/dilator. The dilator and guidewire were removed. The 0.035 guidewire from the VenaSeal kit was then introduced and positioned at the saphenofemoral junction using ultrasound guidance. The 80 cm 7 Fr introducer sheath/dilator was positioned 5cm from the saphenofemoral junction. The guidewire and dilator were removed, and the remaining sheath was flushed with sterile saline, with the syringe remaining in place prior to the next steps. The cyanoacrylate adhesive was precisely primed into the 5 F delivery catheter and this catheter/syringe combination was attached within the dispenser gun. This assembly was introduced through the 7F sheath and positioned 5 cm caudal of the saphenofemoral junction under ultrasound guidance. The steps from the IFU were followed for dispensing amounts, locations and compression times, 2 aliquots proximally with 3 minutes of compression, and 1 aliquot every 3 cm distally with 30 sec of compression along the course of the vessel. Following the last injection and compression sequence, the catheter and introducer sheath were pulled out from the access site. Hemostasis was achieved with manual compression and an adhesive bandage was applied to the incision. Ultrasound confirmed complete coaptation and closure of the treated segments of the GSV, and the absence of any DVT at the saphenofemoral junction. Treatment time was approximately 5 minutes and the vein length treated was 17 cm. The drapes were removed and the patient cleaned and prepared for discharge. Post op ultrasound check is scheduled for 48-72 hours and the patient was given written post-op instructions. 55053 - Endoven Ther Chem Adhes 1st All charges added?: Procedure code (CPT) selection complete Assessment & Plan Assessment & Plan (1) Varicose veins of right lower extremity with inflammation: Comment: 12/15/2023-right great saphenous vein Cyanoacralate ablation Code(s): I83.11 - Varicose veins of right lower extremity with inflammation Category: Medical Plan: See above Coding Level of Care Code Procedure Only Diagnoses Varicose veins of right lower extremity with inflammation I83.11 CPT Codes Details - Vascular 3: 89218 - Endoven Ther Chem Adhes 1st ([id number])
[2023-12-19 08:40] VITALS: BMI 24.0
== END 2023-12-15 10:32 | disposition home or self-care (01) ==
PROVIDERS: PCP Internal Medicine; Visit Provider Surgery Vascular Surgery
DX: I83.11 Varicose veins of right lower extremity with inflammation (principal)
CPT/HCPCS: 36482

== ENCOUNTER → 2023-12-15 09:44 | Outpatient (BNVA) | payer MEDICARE, SELFPAY | PROVIDERS: PCP Internal Medicine; Visit Provider Surgery Vascular Surgery | DX: I83.11 Varicose veins of right lower extremity with inflammation (principal) | CPT/HCPCS: 36482 ==

== ENCOUNTER 2023-12-19 15:06 | Outpatient (REF) | payer MEDICARE, MEDICAID, SELFPAY ==
--- NOTE | ~2023-12-19 | US_ITS ---
EXAMINATION: TRIPLEX SCANNING OF RIGHT LOWER EXTREMITY; SUPERFICIAL ULTRASOUND WITH DOPPLER OF RIGHT LOWER EXTREMITY CLINICAL INFORMATION: Status post Venaseal ablation of the right great saphenous vein. Originally performed on 12/15/2023. COMPARISON: preprocedure studies. TECHNIQUE: Color flow triplex imaging and compression Doppler were performed as well as superficial ultrasound with Doppler. FINDINGS: TRIPLEX SCANNING OF RIGHT LOWER EXTREMITY: Respiratory variation, normal compression and augmented flow are noted throughout the lower extremity. The visualized common femoral vein, femoral vein, profunda femoral vein, popliteal vein and the calf veins show no evidence of deep venous thrombosis. SUPERFICIAL ULTRASOUND WITH DOPPLER OF RIGHT LOWER EXTREMITY: The right great saphenous vein is occluded from the access site to approximately 3.4 cm from the sapheno-femoral junction. There is no extension of thrombus into the deep system. There is no evidence of Briones's cyst. US/US venous duplex LE RT IMPRESSION: 1. Normal triplex scan of the right without evidence of deep venous thrombosis. 2. No flow within the noncompressible right great saphenous vein. This is consistent with successful Venaseal ablation of the right great saphenous vein.
== END 2023-12-19 15:07 | disposition home or self-care (01) ==
LOC: HO.US 15:06
PROVIDERS: PCP Internal Medicine; Visit Provider Surgery Vascular Surgery
DX: M79.604 Pain in right leg (principal)
CPT/HCPCS: 93971

== ENCOUNTER 2023-12-19 16:13 | Outpatient (AMB) | payer MEDICARE, SELFPAY ==
--- NOTE | 2023-12-19 16:14 | MHC.PC.OV ---
Intake Visit Reasons: Lab Results Allergies tramadol [TRAMADOL] Allergy (Severe, Verified 12/19/23 16:14) THROAT SWELLING aspirin [ASPIRIN] Allergy (Intermediate, Verified 12/19/23 16:14) GI UPSET - ABD PAIN, pain morphine [MORPHINE] Allergy (Intermediate, Verified 12/19/23 16:14) JITTERY, pain nitrofurantoin [From MACROBID] Allergy (Intermediate, Verified 12/19/23 16:14) HIVES codeine [CODEINE] Allergy (Unknown, Verified 12/19/23 16:14) pain oxycodone [Percocet] Allergy (Unknown, Verified 12/19/23 16:14) pain Sulfa (Sulfonamide Antibiotics) Allergy (Unknown, Verified 12/19/23 16:14) Nausea, diarrhea mirabegron [From Myrbetriq] Adverse Reaction (Intermediate, Verified 12/19/23 16:14) Dizziness sulfamethoxazole [From BACTRIM] Adverse Reaction (Intermediate, Verified 12/19/23 16:14) NAUSEA/DIARRHEA trimethoprim [From BACTRIM] Adverse Reaction (Intermediate, Verified 12/19/23 16:14) NAUSEA/DIARRHEA Propoxyphene HCl Allergy (Unknown, Uncoded 12/19/23 16:14) Unknown From DARVOCET-N 100 Adverse Reaction (Intermediate, Uncoded 12/19/23 16:14) ABD PAIN - NAUSEA Tobacco use date assessed: 08/08/23 Fall risk assessment: No Falls in past year Last assessed Fall Risk: 12/19/23 Dental Screening Dental Screen Date: 08/08/23 HPI Lab Results HPI Details 78 year old female with PVD, hypercholesterolemia impaired glucose tolerance generalized anxiety disorder coming in for follow-up through Telehealth. Last seen in 10/2023 [facility] Medical History Age-related osteoporosis without current pathological fracture Right leg pain Screening for breast cancer Overactive bladder Degenerative disc disease, lumbar Allergic rhinitis Mixed incontinence Hypercholesterolemia Vitamin D deficiency Surgical History History of cataract surgery History of arthroscopy of left knee History of shoulder surgery History of hysterectomy History of cholecystectomy Family History Father Diabetes Myocardial infarction Heart disease Mother Heart disease Chronic mental illness Stomach cancer Sister Esophageal cancer Brother Esophageal cancer Paternal Grandfather Heart disease Social History Housing: House Alcohol intake: current Alcohol intake frequency: holidays/special occasions only Comment: glass of wine once a month Patient Tobacco Use Status: Never used Tobacco e-Cigarette/Vaping Use: Never Used Second Hand Smoke Exposure: No service: No Current occupational status: retired Cognitive needs: No Hearing needs: No Vision needs: Yes Questionnaire PHQ-9 Over the last 2 weeks, how often have you been bothered by any of the following problems? 1. Little interest or pleasure in doing things: more than half the days 2. Feeling down, depressed, or hopeless: more than half the days 3. Trouble falling or staying asleep, or sleeping too much: more than half the days 4. Feeling tired or having little energy: more than half the days 5. Poor appetite or overeating: more than half the days 6. Feeling bad about yourself - or that you are a failure or have let yourself or your family down: more than half the days 7. Trouble concentrating on things, such as reading the newspaper or watching television: not at all 8. Moving or speaking so slowly that other people could have noticed. Or the opposite - being so fidgety or restless that you have been moving around a lot more than usual: not at all 9. Thoughts that you would be better off or of hurting yourself in some way: not at all Total score: 12 Depression Screening Interpretation: Negative Depression Screening Done: Yes 70967 - PHQ-9 Billing: Yes Source: Developed by Drs. Naeem Garza, Belia Leone, Esa Amaral and colleagues, with an educational dino from [employer]. Thrive Questionnaire Date Thrive assessed: 08/08/23 AUDIT C Alcohol Use Questionnaire (AUDIT-C) 1. How often do you have a drink containing alcohol?: 2-3 times a week 2. How many drinks containing alcohol do you have on a typical day when you are drinking?: 1 or 2 3. How often do you have six or more drinks on one occasion?: Never Total Score: 3 Score Reviewed/Action Taken: No TEZ-7 AMB Questionnaire TEZ-7 Date TEZ - 7 assessed: 08/08/23 Source: Developed by DrsPage Garza, Belia Lenoe, Esa Amaral and colleagues, with an educational dino from [employer]. Physical exam (Primary Care) Tobacco/Smoking Status: Tobacco use Status Tobacco use date assessed 08/08/23 12/19/23 16:15 Patient Tobacco Use Status Never used Tobacco 12/19/23 16:15 e-Cigarette/Vaping Use Never Used 12/19/23 16:15 PHQ-9: PHQ-9 Score PHQ-9: Total score 12 12/19/23 16:15 Depression Screening Interpretation: Negative Thrive Assessment: Date of Thrive Assessment Date Thrive assessed 08/08/23 12/19/23 16:15 Telehealth Telehealth Location of provider rendering services: practice address Location of patient: address on file Patient Identification confirmed using: Name, : Yes Telehealth method: video (Iphone) Patient verbally consented to treatment: Yes Patient verbally consented to billing insurance company: Yes Patient informed of any privacy concerns related to visit: Yes Minutes spent on Phone/Video with Pt.: 25 Assessment and Plan Assessment & Plan (1) Hypercholesterolemia: Code(s): E78.00 - Pure hypercholesterolemia, unspecified Plan: Avoid fried foods, chicken skin, eggs, butter margarine, pastries and meat. Be it pork or beef they have a lot of cholesterol LDL goal of less than 130 and triglyceride of less than 150 (2) Peripheral vascular disease: Code(s): I73.9 - Peripheral vascular disease, unspecified Plan: When sitting down elevate the legs, exercise, and support stockings Coding Level of Care Code Tele Est Pt Level 3 (30934) Diagnoses Hypercholesterolemia E78.00 Peripheral vascular disease I73.9
== END 2023-12-19 17:35 | disposition home or self-care (01) ==
LOC: HO.HMGH 16:13
PROVIDERS: PCP Internal Medicine; Visit Provider Internal Medicine
DX: E78.00 Pure hypercholesterolemia, unspecified (principal); I73.9 Peripheral vascular disease, unspecified
CPT/HCPCS: 99213

== ENCOUNTER 2023-12-28 13:57 | Outpatient (AMB) | payer MEDICARE, MEDICAID, SELFPAY ==
--- NOTE | 2023-12-28 13:58 | MHC.OFFVIS ---
Intake Visit Reasons: 2 week follow up right GSV 12/15/23 Intake Note: 2 week follow up Right GSV RFA 12/15/23. Pt states she still has some tenderness around knee area where she has known thrombosed vein. Accompanied by: Self / Same As Patient Allergies tramadol [TRAMADOL] Allergy (Severe, Verified 12/28/23 14:04) THROAT SWELLING aspirin [ASPIRIN] Allergy (Intermediate, Verified 12/28/23 14:04) GI UPSET - ABD PAIN, pain morphine [MORPHINE] Allergy (Intermediate, Verified 12/28/23 14:04) JITTERY, pain nitrofurantoin [From MACROBID] Allergy (Intermediate, Verified 12/28/23 14:04) HIVES codeine [CODEINE] Allergy (Unknown, Verified 12/28/23 14:04) pain oxycodone [Percocet] Allergy (Unknown, Verified 12/28/23 14:04) pain Sulfa (Sulfonamide Antibiotics) Allergy (Unknown, Verified 12/28/23 14:04) Nausea, diarrhea mirabegron [From Myrbetriq] Adverse Reaction (Intermediate, Verified 12/28/23 14:04) Dizziness sulfamethoxazole [From BACTRIM] Adverse Reaction (Intermediate, Verified 12/28/23 14:04) NAUSEA/DIARRHEA trimethoprim [From BACTRIM] Adverse Reaction (Intermediate, Verified 12/28/23 14:04) NAUSEA/DIARRHEA Propoxyphene HCl Allergy (Unknown, Uncoded 12/28/23 14:04) Unknown From DARVOCET-N 100 Adverse Reaction (Intermediate, Uncoded 12/28/23 14:04) ABD PAIN - NAUSEA HPI HPI 2 week follow up right GSV 12/15/23: Details: Very pleasant 78-year-old female presents for follow-up status post right great saphenous vein ablation. Reports right leg feels better. Still some swelling and discomfort of the left lower extremity. She now presents for follow-up [facility] Medical History (Updated 12/28/23 @ 14:16 by Anthony Castellanos MD) Age-related osteoporosis without current pathological fracture Right leg pain Screening for breast cancer Overactive bladder Degenerative disc disease, lumbar Allergic rhinitis Mixed incontinence Hypercholesterolemia Vitamin D deficiency Surgical History (Updated 12/28/23 @ 14:05 by LEA Medina) Status post ablation of incompetent vein using laser (12/15/23) History of cataract surgery History of arthroscopy of left knee History of shoulder surgery History of hysterectomy History of cholecystectomy Family History Father Diabetes Myocardial infarction Heart disease Mother Heart disease Chronic mental illness Stomach cancer Sister Esophageal cancer Brother Esophageal cancer Paternal Grandfather Heart disease Social History Housing: House Alcohol intake: current Alcohol intake frequency: holidays/special occasions only Comment: glass of wine once a month Patient Tobacco Use Status: Never used Tobacco e-Cigarette/Vaping Use: Never Used Second Hand Smoke Exposure: No service: No Current occupational status: retired Cognitive needs: No Hearing needs: No Vision needs: Yes Review of Systems Const Reports as per HPI ENT Reports no additional complaints Card Denies chest pain, Denies chest pain at rest and Denies chest pain with activity Resp Denies chest congestion and Denies cough GI Reports no additional complaints Musc Details: pain over varicosities, aching of lower extremities, swelling, cramping, heaviness and tiredness, itching Denies abnormal gait Skin/Breast Reports pruritus and Denies wounds Neuro Reports no additional complaints and Denies abnormal gait Psych Denies no additional complaints Physical Exam Const General: cooperative, healthy appearing and comfortable Orientation/consciousness: oriented to person, oriented to place and oriented to time Neck Carotids: no bruits Chest Chest palpation & inspection: normal inspection of the chest and normal palpation of entire chest wall Resp Effort & Inspection: normal respiratory effort and able to speak in complete sentences Cardio Rate: regular rate Heart sounds: S1 normal heart sound present and S2 normal heart sound present Peripheral pulses: Peripheral pulses 2+ throughout GI Inspection: Yes normal to inspection Skin Other: +2 edema, large rope-like varicosities greater than 4 mm CEAP Classification C4 - skin color changes Ep - Etiology Primary As - superficial veins P - reflux General skin exam: dry skin Neuro General: oriented to person, oriented to place and oriented to time Extrem Right lower extremity: full ROM, normal capillary refill and edema Left lower extremity: full ROM, normal capillary refill and edema Psych Mental Status: mental status grossly normal Results Reviewed Results Reviewed: Brief summary of venous insufficiency testing is as follows: right great saphenous vein: Ablated right small saphenous vein: negative right accessory vein: none present left great saphenous vein: Positive left small saphenous vein: negative left accessory vein: none present Please note there is no evidence of any venous aneurysms or significant tortuosity Assessment & Plan Assessment & Plan (1) Varicose veins of right lower extremity with inflammation: Comment: 12/15/2023-right great saphenous vein Cyanoacralate ablation Code(s): I83.11 - Varicose veins of right lower extremity with inflammation Category: Medical Plan: Has done well status post right great saphenous vein ablation. Continue conservative measures including compression elevation and exercise. We will treat left lower extremity. (2) Varicose veins of left lower extremity with inflammation: Code(s): I83.12 - Varicose veins of left lower extremity with inflammation Category: Medical Plan: This patient has varicose veins with inflammation. They continue to be a source of discomfort for the patient. The patient has tried conservative treatment with compression, leg elevation and exercise program for over 3 months time. They have been compliant with all treatment. This has provided minimal relief for the patient. I do not anticipate this course of treatment will alter the underlying etiology. The patient has been scheduled for lower extremity venous treatment inclusive of --- left great saphenous vein Cyanoacralate ablation. Risks, benefits, and complications of this procedure has been discussed in detail with the patient including but not limited to bleeding, infection, and the development of a DVT. The patient has demonstrated a clear understanding and has consented. We will schedule the patient as soon as possible. Thank you for allowing us to participate in this patient's care. If there are any questions or concerns please do not hesitate to contact us. Coding Level of Care Code Est Pt Level 4 (74599) Diagnoses Varicose veins of right lower extremity with inflammation I83.11 Varicose veins of left lower extremity with inflammation I83.12
== END 2023-12-28 14:35 | disposition home or self-care (01) ==
PROVIDERS: PCP Internal Medicine; Visit Provider Surgery Vascular Surgery
DX: I83.11 Varicose veins of right lower extremity with inflammation (principal); I83.12 Varicose veins of left lower extremity with inflammation
CPT/HCPCS: 99214

== ENCOUNTER → 2023-12-28 13:57 | Outpatient (BNVA) | payer MEDICARE, MEDICAID, SELFPAY | PROVIDERS: PCP Internal Medicine; Visit Provider Surgery Vascular Surgery | DX: I83.11 Varicose veins of right lower extremity with inflammation (principal); I83.12 Varicose veins of left lower extremity with inflammation | CPT/HCPCS: 99212 ==

== ENCOUNTER 2024-02-06 13:20 | Outpatient (AMB) | payer MEDICARE, SELFPAY ==
[2024-02-06 13:27] VITALS: BP 136/74; PULSE 87; O2SAT 96; BMI 24.6
--- NOTE | 2024-02-06 13:27 | MHC.PC.OV ---
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: No Allergies tramadol [TRAMADOL] Allergy (Severe, Verified 02/06/24 13:29) THROAT SWELLING aspirin [ASPIRIN] Allergy (Intermediate, Verified 02/06/24 13:29) GI UPSET - ABD PAIN, pain morphine [MORPHINE] Allergy (Intermediate, Verified 02/06/24 13:29) JITTERY, pain nitrofurantoin [From MACROBID] Allergy (Intermediate, Verified 02/06/24 13:29) HIVES codeine [CODEINE] Allergy (Unknown, Verified 02/06/24 13:29) pain oxycodone [Percocet] Allergy (Unknown, Verified 02/06/24 13:29) pain Sulfa (Sulfonamide Antibiotics) Allergy (Unknown, Verified 02/06/24 13:29) Nausea, diarrhea mirabegron [From Myrbetriq] Adverse Reaction (Intermediate, Verified 02/06/24 13:29) Dizziness sulfamethoxazole [From BACTRIM] Adverse Reaction (Intermediate, Verified 02/06/24 13:29) NAUSEA/DIARRHEA trimethoprim [From BACTRIM] Adverse Reaction (Intermediate, Verified 02/06/24 13:29) NAUSEA/DIARRHEA Propoxyphene HCl Allergy (Unknown, Uncoded 02/06/24 13:29) Unknown From DARVOCET-N 100 Adverse Reaction (Intermediate, Uncoded 02/06/24 13:29) ABD PAIN - NAUSEA Tobacco use date assessed: 08/08/23 Dental Screening Dental Screen Date: 08/08/23 HPI TEZ, thrombophlebitis HPI Details 78-year-old female with hypercholesterolemia lumbar degenerative disc disease generalized anxiety disorder impaired glucose tolerance and peripheral vascular disease last seen in November 2023 patient is up-to-date with mammogram. Patient follows up with vascular surgeon had right great saphenous vein radiofrequency ablation dec 15 2023. L saphenous vein radiofrequency ablation - cancelled - has a mass on the L elbow and was told this is bursit [facility] Medical History (Updated 02/06/24 @ 13:46 by Fabiano Mckeon MD) Age-related osteoporosis without current pathological fracture Right leg pain Screening for breast cancer Overactive bladder Degenerative disc disease, lumbar Allergic rhinitis Mixed incontinence Hypercholesterolemia Vitamin D deficiency Surgical History (Updated 12/28/23 @ 14:05 by LEA Medina) Status post ablation of incompetent vein using laser (12/15/23) History of cataract surgery History of arthroscopy of left knee History of shoulder surgery History of hysterectomy History of cholecystectomy Family History Father Diabetes Myocardial infarction Heart disease Mother Heart disease Chronic mental illness Stomach cancer Sister Esophageal cancer Brother Esophageal cancer Paternal Grandfather Heart disease Social History Housing: House Alcohol intake: current Alcohol intake frequency: holidays/special occasions only Comment: glass of wine once a month Patient Tobacco Use Status: Never used Tobacco e-Cigarette/Vaping Use: Never Used Second Hand Smoke Exposure: No service: No Current occupational status: retired Cognitive needs: No Hearing needs: No Vision needs: Yes Questionnaire Thrive Questionnaire Date Thrive assessed: 08/08/23 AUDIT C Alcohol Use Questionnaire (AUDIT-C) 1. How often do you have a drink containing alcohol?: 2-3 times a week 2. How many drinks containing alcohol do you have on a typical day when you are drinking?: 1 or 2 3. How often do you have six or more drinks on one occasion?: Never Total Score: 3 Score Reviewed/Action Taken: No TEZ-7 AMB Questionnaire TEZ-7 Date TEZ - 7 assessed: 08/08/23 Source: Developed by Drs. Naeem Garza, Belia Leone, Esa Amaral and colleagues, with an educational dino from [employer]. Physical exam (Primary Care) Vital Signs: Last Vital Signs Pulse 87 02/06/24 13:27 BP 136/74 02/06/24 13:27 Pulse Ox 96 02/06/24 13:27 Oxygen Delivery Method Room Air 02/06/24 13:27 BMI result Body Mass Index 24.6 Tobacco/Smoking Status: Tobacco use Status Tobacco use date assessed 08/08/23 02/06/24 13:32 Patient Tobacco Use Status Never used Tobacco 02/06/24 13:32 e-Cigarette/Vaping Use Never Used 02/06/24 13:32 Thrive Assessment: Date of Thrive Assessment Date Thrive assessed 08/08/23 02/06/24 13:32 Const General: alert; No acute distress Eyes Conjunctivae: conjunctivae normal Resp Auscultation: clear to auscultation bilaterally Cardio Rate: regular rate Rhythm: regular rhythm GI Inspection: Yes normal to inspection Back/Spine/Pelvis Back/spine/pelvis image: 1. fluctuant mass 3 cm L elbow Extrem General: Yes normal to inspection and No edema Assessment and Plan Assessment & Plan (1) Hypercholesterolemia: Code(s): E78.00 - Pure hypercholesterolemia, unspecified Plan: Avoid fried foods, chicken skin, eggs, butter margarine, pastries and meat. Be it pork or beef they have a lot of cholesterol LDL goal of less than 130 and triglyceride of less than 150 patient is diet controlled (2) Generalized anxiety disorder: Code(s): F41.1 - Generalized anxiety disorder Plan: Continue with present medication citalopram (3) Impaired fasting blood sugar: Code(s): R73.01 - Impaired fasting glucose Plan: Decrease the amount of carbohydrate intake, pasta, bread, rice and potatoes are all sugar and that is aside from all the sweet stuff, remember that fruits are good but they are Sweet also. (4) Peripheral vascular disease: Code(s): I73.9 - Peripheral vascular disease, unspecified Plan: Patient had right ablation great saphenous vein procedure under vascular surgeon. Patient had a planned surgical procedure on the left side but patient is asymptomatic and declined (5) Olecranon bursitis of left elbow: Code(s): M70.22 - Olecranon bursitis, left elbow Plan: reassurance and will call iof want to refer to ortho. advised heating pads Coding Level of Care Code Est Pt Level 4 (34513) Diagnoses Hypercholesterolemia E78.00 Generalized anxiety disorder F41.1 Impaired fasting blood sugar R73.01 Peripheral vascular disease I73.9 Olecranon bursitis of left elbow M70.22
== END 2024-02-06 13:54 | disposition home or self-care (01) ==
PROVIDERS: PCP Internal Medicine; Visit Provider Internal Medicine
DX: E78.00 Pure hypercholesterolemia, unspecified (principal); F41.1 Generalized anxiety disorder; R73.01 Impaired fasting glucose; I73.9 Peripheral vascular disease, unspecified; M70.22 Olecranon bursitis, left elbow
CPT/HCPCS: 99214

== ENCOUNTER 2024-03-12 11:19 | Outpatient (AMB) | payer MEDICARE, MEDICAID, SELFPAY ==
[2024-03-12 11:21] VITALS: BMI 24.6
--- NOTE | 2024-03-12 11:21 | A.OFFVIS_ITS ---
Vital Signs 03/12/24 11:21 Height 5 ft 7 in Weight 157 lb BMI 24.6 Intake Visit Reasons: Right LE pain after procedure Intake Note: Pt here for Right LE pain s/p Right GSV RFA 12/15/23, was scheduled for Left GSV Venaseal but did not want to move forward until Right leg is resolved. Pt is still having pain over treated area, does have hx of procedure in proximal GSV prior. Accompanied by: Self / Same As Patient Allergies tramadol [TRAMADOL] Allergy (Severe, Verified 03/12/24 11:25) THROAT SWELLING aspirin [ASPIRIN] Allergy (Intermediate, Verified 03/12/24 11:25) GI UPSET - ABD PAIN, pain morphine [MORPHINE] Allergy (Intermediate, Verified 03/12/24 11:25) JITTERY, pain nitrofurantoin [From MACROBID] Allergy (Intermediate, Verified 03/12/24 11:25) HIVES codeine [CODEINE] Allergy (Unknown, Verified 03/12/24 11:25) pain oxycodone [Percocet] Allergy (Unknown, Verified 03/12/24 11:25) pain Sulfa (Sulfonamide Antibiotics) Allergy (Unknown, Verified 03/12/24 11:25) Nausea, diarrhea mirabegron [From Myrbetriq] Adverse Reaction (Intermediate, Verified 03/12/24 11:25) Dizziness sulfamethoxazole [From BACTRIM] Adverse Reaction (Intermediate, Verified 03/12/24 11:25) NAUSEA/DIARRHEA trimethoprim [From BACTRIM] Adverse Reaction (Intermediate, Verified 03/12/24 11:25) NAUSEA/DIARRHEA Propoxyphene HCl Allergy (Unknown, Uncoded 03/12/24 11:25) Unknown From DARVOCET-N 100 Adverse Reaction (Intermediate, Uncoded 03/12/24 11:25) ABD PAIN - NAUSEA HPI HPI Right LE pain after procedure: Details: Pleasant 78-year-old female presents for follow-up re-evaluation regarding pain in the right leg. She was status post right great saphenous vein venous ablation. This was done on 12/15/2023. She has had persistent discomfort of that leg in particular towards the medial aspect below the knee. It has been tender for her. She was concerned and now presents for re-evaluation. She denies any warmth or erythema in the area. She now presents for routine follow- up evaluation. [facility] Medical History Age-related osteoporosis without current pathological fracture Right leg pain Screening for breast cancer Overactive bladder Degenerative disc disease, lumbar Allergic rhinitis Mixed incontinence Hypercholesterolemia Vitamin D deficiency Surgical History Status post ablation of incompetent vein using laser (12/15/23) History of cataract surgery History of arthroscopy of left knee History of shoulder surgery History of hysterectomy History of cholecystectomy Family History Father Diabetes Myocardial infarction Heart disease Mother Heart disease Chronic mental illness Stomach cancer Sister Esophageal cancer Brother Esophageal cancer Paternal Grandfather Heart disease Social History Housing: House Alcohol intake: current Alcohol intake frequency: holidays/special occasions only Comment: glass of wine once a month Patient Tobacco Use Status: Never used Tobacco e-Cigarette/Vaping Use: Never Used Second Hand Smoke Exposure: No service: No Current occupational status: retired Cognitive needs: No Hearing needs: No Vision needs: Yes Review of Systems Const All systems reviewed & are unremarkable except as noted in HPI and below Reports no additional complaints ENT Reports Normal hearing present Card Denies chest pain, Denies chest pain at rest, Denies chest pain with activity and Denies pedal edema Resp Denies cough GI Denies abdominal pain Musc Denies abnormal gait, Denies muscle cramps and Denies radiating pain into limb Skin/Breast Denies skin ulcer and Denies wounds Neuro Reports Normal hearing present and Denies abnormal gait Psych Reports no additional complaints Physical Exam Vital Signs: BMI result Body Mass Index 24.6 Const General: cooperative, healthy appearing and comfortable Orientation/consciousness: oriented to person, oriented to place and oriented to time HEENT Head: Yes normal to inspection Neck Neck: Yes normal visual inspection Carotids: no bruits Chest Chest palpation & inspection: normal inspection of the chest Resp Effort & Inspection: normal respiratory effort and able to speak in complete sentences Auscultation: clear to auscultation bilaterally, no crackles, no rales, no rhonchi and no wheezes Cardio Rate: regular rate Rhythm: regular rhythm Heart sounds: S1 normal heart sound present and S2 normal heart sound present Bruits: no carotid bruits Peripheral pulses: Peripheral pulses 2+ throughout GI Inspection: Yes normal to inspection Skin Wounds: no wounds Hair: normal Neuro General: oriented to person, oriented to place and oriented to time Cranial nerves: Yes CN's II-XII intact bilaterally and Yes Normal hearing present Cognition (Neuro): normal cognition Motor exam (neuro): 5/5 motor strength present throughout Extrem Other: Right knee tenderness right below the knee on pinpoint palpation General: No clubbing, No cyanosis and No edema Psych Appearance: grossly normal Mental Status: mental status grossly normal Speech and movement: Normal speech and movement present Assessment & Plan Assessment & Plan (1) Varicose veins of right lower extremity with inflammation: Comment: 12/15/2023-right great saphenous vein Cyanoacralate ablation Code(s): I83.11 - Varicose veins of right lower extremity with inflammation Category: Medical Plan: In short patient has below knee pain. This is not from venous disease this is more musculoskeletal and arthritic in nature as it was pain on direct palpation of that area in particular right [id number]. This was discussed in detail with the patient. At the current time patient has no symptoms on the left lower extremity. We will hold off on venous interventions on the left lower extremity. In terms of the right lower extremity pain we discussed use of [id number] analgesia and should that not improve may benefit from an orthopedic evaluation. She will follow up with us on an as-needed basis. Thank you for allowing us to assist in her care. If there are any questions or concerns please do not hesitate to contact us. Coding Level of Care Code Est Pt Level 4 (84718) Diagnoses Varicose veins of right lower extremity with inflammation I83.11
== END 2024-03-12 11:41 | disposition home or self-care (01) ==
PROVIDERS: PCP Internal Medicine; Visit Provider Surgery Vascular Surgery
DX: I83.11 Varicose veins of right lower extremity with inflammation (principal)
CPT/HCPCS: 99214

== ENCOUNTER → 2024-03-12 11:19 | Outpatient (BNVA) | payer MEDICARE, MEDICAID, SELFPAY | PROVIDERS: PCP Internal Medicine; Visit Provider Surgery Vascular Surgery | DX: I83.11 Varicose veins of right lower extremity with inflammation (principal) | CPT/HCPCS: 99212 ==

== ENCOUNTER 2024-04-23 11:19 | Outpatient (REF) | payer MEDICARE, MEDICAID, SELFPAY ==
[2024-04-23 11:45] LABS: MANUAL DIFF FLAG NO
[2024-04-23 12:27] LABS: Basophils Absolute Auto 0.1 X10*3/uL (0.0-0.2); Basophils Percent Auto 0.8 % (0-2); Eosinophils Absolute Auto 0.3 X10*3/uL (0.0-0.4); Eosinophils Percent Auto 2.8 % (0-4); Estimated Average Glucose 114 mg/dL; Hematocrit 41.6 % (37.0-47.0); Hemoglobin 13.1 g/dl (12.0-16.0); Hemoglobin A1C 122.6192 umol/L; Hemoglobin A1c % 5.6 % (<6.0); Imm Gran Abs Auto 0.03 X10*3/uL (0.00-0.03); Imm Gran Pct Auto 0.3 % (0.0-0.4); Lymphocytes Percent Auto 32.6 % (20-40); Mean Corpuscular HGB Conc 31.5 g/dl (31.0-35.0); Mean Corpuscular Hemoglobin 26.4 pg (27.0-33.0); Mean Corpuscular Volume 83.7 fL (80.0-98.0); Mean Platelet Volume 11.1 fL (9.4-12.3); Monocytes Absolute Auto 0.8 X10*3/uL (0.1-1.2); Monocytes Percent Auto 9.1 % (2-11); Neutrophils Percent Auto 54.4 % (45-73); Platelet Count 303 X10*3/uL (160-400); Red Blood Count 4.97 X10*6/uL (4.20-5.50); Red Cell Distribution Width 13.9 % (11.0-16.0); Total Hemoglobin (HGBA1C) 3292.6127 umol/L; White Blood Count 9.2 X10*3/uL (4.8-10.8)
[2024-04-23 12:57] LABS: Alanine Aminotransferase 10 U/L (0-31); Albumin Level 4.2 g/dL (3.5-5.0); Alkaline Phosphatase 44 U/L (39-117); Anion Gap 12 (12-20); Aspartate Amino Transferase 14 U/L (5-31); Bilirubin Total 0.3 mg/dL (0.0-1.0); Blood Urea Nitrogen 30 mg/dL (9-16); Calcium 10.2 mg/dL (8.4-10.2); Carbon Dioxide 28 mmol/L (22-29); Chloride 106 mmol/L (96-108); Cholesterol 223 mg/dL (<200); Estimated Glomerular Filt Rate 45; Glucose Random 94 mg/dL (60-115); HDL Cholesterol 46 mg/dL (>40); LDL Cholesterol Calculated 149 mg/dL (<100); Potassium 4.3 mmol/L (3.3-5.1); Sodium 142 mmol/L (135-145); Total Protein 7.6 g/dL (6.5-8.0); Triglycerides 142 mg/dL (<150)
[2024-04-23 12:58] LABS: Appearance Urine Turbid; Color Urine Yellow; Glucose Urine UA Negative (Negative); Leukocyte Esterase Urine Large (3+) (Negative); Nitrite Urine Positive (Negative); PH 5.5 (5.0-9.0); Specific Gravity - Urine 1.015 (1.005-1.025); UMIC TRIGGER UACC YES; Urine Blood Moderate (2+) (Negative); Urine Ketones Negative (Negative); Urine Protein 30 (1+) mg/dL (Neg-Trace)
[2024-04-23 13:12] LABS: Free T4 (Free Thyroxine) 0.87 ng/dL (0.71-1.85); Thyroid Stimulating Hormone 2.37 uIU/mL (0.32-4.0); Vitamin D 25-OH Total 84.4 ng/mL (>30)
[2024-04-23 13:22] LABS: Folate 6.7 ng/mL (> or = 4.0); Vitamin B12 1720 pg/mL (200-900)
[2024-04-23 13:49] LABS: Bacteria Urine 4+ (None Seen); Hyaline Casts Urine 0-2 /LPF (0-2); RBC Urine 0-2 /HPF (0-2); UACC Culture Trigger YES; WBC Clumps Urine Present; WBC Urine >50 /HPF (0-5)
== END 2024-04-23 11:20 | disposition home or self-care (01) ==
LOC: HO.LAB 11:19
PROVIDERS: PCP Internal Medicine; Visit Provider Internal Medicine
DX: E78.00 Pure hypercholesterolemia, unspecified (principal); R30.0 Dysuria; R82.79 Other abnormal findings on microbiological examination of urine; Z13.1 Encounter for screening for diabetes mellitus
CPT/HCPCS: 36415; 80053; 80061; 81001; 81003; 82306; 82607; 82746; 83036; 84439; 84443; 85025; 87086; 87088; 87186

== ENCOUNTER 2024-05-10 14:39 | Outpatient (AMB) | payer MEDICARE, MEDICAID, SELFPAY ==
--- NOTE | 2024-05-10 14:42 | A.OFFPC_ITS ---
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 Required: No Accompanied by: Self / Same As Patient Allergies tramadol [TRAMADOL] Allergy (Severe, Verified 05/10/24 14:51) THROAT SWELLING aspirin [ASPIRIN] Allergy (Intermediate, Verified 05/10/24 14:51) GI UPSET - ABD PAIN, pain morphine [MORPHINE] Allergy (Intermediate, Verified 05/10/24 14:51) JITTERY, pain nitrofurantoin [From MACROBID] Allergy (Intermediate, Verified 05/10/24 14:51) HIVES codeine [CODEINE] Allergy (Unknown, Verified 05/10/24 14:51) pain oxycodone [Percocet] Allergy (Unknown, Verified 05/10/24 14:51) pain Sulfa (Sulfonamide Antibiotics) Allergy (Unknown, Verified 05/10/24 14:51) Nausea, diarrhea mirabegron [From Myrbetriq] Adverse Reaction (Intermediate, Verified 05/10/24 14:51) Dizziness sulfamethoxazole [From BACTRIM] Adverse Reaction (Intermediate, Verified 05/10/24 14:51) NAUSEA/DIARRHEA trimethoprim [From BACTRIM] Adverse Reaction (Intermediate, Verified 05/10/24 14:51) NAUSEA/DIARRHEA Propoxyphene HCl Allergy (Unknown, Uncoded 05/10/24 14:51) Unknown From DARVOCET-N 100 Adverse Reaction (Intermediate, Uncoded 05/10/24 14:51) ABD PAIN - NAUSEA Medication List - Last Reconciled 05/10/24 by Fabiano Mckeon MD cholecalciferol (vitamin D3) 25 mcg PO DAILY citalopram 40 mg PO DAILY cyanocobalamin (vitamin B-12) 1,000 mcg PO .Q once a week estradiol 0.5 mg PO DAILY lactobacillus combination no.8 (Adult Probiotic) 3,000 mmu cells PO DAILY [prevagen PO .QD] sulfamethoxazole-trimethoprim 800-160 mg (Bactrim DS) 1 tab PO BID Tobacco use date assessed: 08/08/23 Dental Screening Dental Screen Date: 08/08/23 HPI Cholesterol TEZ HPI Details 78-year-old female with hypercholesterol emia impaired glucose tolerance peripheral vascular disease and generalized anxiety disorder last seen in January 2024. Patient's mammogram is up-to-date colonoscopy 2016 hyperplastic. Bone density was normal in 2021. Review of the notes has seen the vascular surgeon in March 12 had the right GSV RFA 12/11/2023. R leg pain still there and does not want the l done [facility] Medical History (Updated 05/10/24 @ 15:19 by Fabiano Mckeon MD) Age-related osteoporosis without current pathological fracture Right leg pain Screening for breast cancer Overactive bladder Degenerative disc disease, lumbar Allergic rhinitis Mixed incontinence Hypercholesterolemia Vitamin D deficiency Surgical History Status post ablation of incompetent vein using laser (12/15/23) History of cataract surgery History of arthroscopy of left knee History of shoulder surgery History of hysterectomy History of cholecystectomy Family History Father Diabetes Myocardial infarction Heart disease Mother Heart disease Chronic mental illness Stomach cancer Sister Esophageal cancer Brother Esophageal cancer Paternal Grandfather Heart disease Social History Housing: House Alcohol intake: current Alcohol intake frequency: holidays/special occasions only Comment: glass of wine once a month Patient Tobacco Use Status: Never used Tobacco e-Cigarette/Vaping Use: Never Used Second Hand Smoke Exposure: No service: No Current occupational status: retired Cognitive needs: No Hearing needs: No Vision needs: Yes Questionnaire Thrive Questionnaire Date Thrive assessed: 08/08/23 TEZ-7 AMB Questionnaire TEZ-7 Date TEZ - 7 assessed: 08/08/23 Source: Developed by Drs. Naeem Garza, Belia Leone, Esa Amaral and colleagues, with an educational dino from [employer] Physical exam (Primary Care) Vital Signs: Last Vital Signs Temp 96.4 F L 05/10/24 14:50 Pulse 78 05/10/24 14:50 BP 102/62 05/10/24 14:50 Pulse Ox 98 05/10/24 14:50 Oxygen Delivery Method Room Air 05/10/24 14:50 BMI result Body Mass Index 25.0 Tobacco/Smoking Status: Tobacco use Status Tobacco use date assessed 08/08/23 05/10/24 14:43 Patient Tobacco Use Status Never used Tobacco 05/10/24 14:43 e-Cigarette/Vaping Use Never Used 05/10/24 14:43 Thrive Assessment: Date of Thrive Assessment Date Thrive assessed 08/08/23 05/10/24 14:43 Const General: alert; No acute distress Eyes Conjunctivae: conjunctivae normal Resp Auscultation: clear to auscultation bilaterally Cardio Rate: regular rate Rhythm: regular rhythm GI Inspection: Yes normal to inspection Extrem General: Yes normal to inspection and No edema Office Procedures Flu Questionnaire Does the patient have a severe egg allergy?: No Does the patient have severe life threatening allergies?: No Does the patient have a fever or illness today?: Yes Immunizations Fluarix Triv [id number] (PF) 45 mcg (15 mcg x 3)/0.5 mL IM syringe Performing Provider: Fabaino Mckeon MD [facility] [place] [facility] Documented (not given) by: NEO Ruffin on 05/10/24 14:51 Reason Not Given: Patient Refused Coding Level of Care Code Est Pt Level 4 (90124) Diagnoses Peripheral vascular disease I73.9 Impaired fasting blood sugar R73.01 Hypercholesterolemia E78.00 Generalized anxiety disorder F41.1 Allergic rhinitis J30.9 Assessment & Plan Assessment & Plan (1) Peripheral vascular disease: Code(s): I73.9 - Peripheral vascular disease, unspecified Category: Medical Plan: When sitting down elevate the legs, exercise, and support stockings. Patient had recent procedure done follows up with vascular surgeon. Right GSV ablation (2) Impaired fasting blood sugar: Code(s): R73.01 - Impaired fasting glucose Category: Medical Plan: Decrease the amount of carbohydrate intake, pasta, bread, rice and potatoes are all sugar and that is aside from all the sweet stuff, remember that fruits are good but they are Sweet also. (3) Hypercholesterolemia: Code(s): E78.00 - Pure hypercholesterolemia, unspecified Category: Medical Plan: Avoid fried foods, chicken skin, eggs, butter margarine, pastries and meat. Be it pork or beef they have a lot of cholesterol (4) Generalized anxiety disorder: Code(s): F41.1 - Generalized anxiety disorder Category: Medical Plan: Continue with present medication (5) Allergic rhinitis: Code(s): J30.9 - Allergic rhinitis, unspecified Category: Medical Plan: allegy desensitization therapy Orders: Orders Influenza [id number] Immunization Today Z23 - Encounter for immunization Medications: Changed From citalopram 20 mg PO DAILY 90 tabs 0RF To citalopram 40 mg PO DAILY 30 tabs 2RF
[2024-05-10 14:50] VITALS: BP 102/62; PULSE 78; TEMP 35.8; O2SAT 98; BMI 25.0
== END 2024-05-10 16:35 | disposition home or self-care (01) ==
PROVIDERS: PCP Internal Medicine; Visit Provider Internal Medicine
DX: I73.9 Peripheral vascular disease, unspecified (principal); R73.01 Impaired fasting glucose; E78.00 Pure hypercholesterolemia, unspecified; F41.1 Generalized anxiety disorder; J30.9 Allergic rhinitis, unspecified; Z23 Encounter for immunization

== ENCOUNTER → 2024-05-10 14:39 | Outpatient (BNVA) | payer MEDICARE, MEDICAID, SELFPAY | PROVIDERS: PCP Internal Medicine; Visit Provider Internal Medicine | DX: I73.9 Peripheral vascular disease, unspecified (principal); R73.01 Impaired fasting glucose; E78.00 Pure hypercholesterolemia, unspecified; F41.1 Generalized anxiety disorder; J30.9 Allergic rhinitis, unspecified; Z79.899 Other long term (current) drug therapy; Z28.21 Immunization not carried out because of patient refusal | CPT/HCPCS: 90471; 99212 ==

== ENCOUNTER 2024-06-04 13:02 | Outpatient (REF) | payer MEDICARE, MEDICAID, SELFPAY ==
[2024-06-04 14:42] LABS: Appearance Urine Turbid; Color Urine Yellow; Glucose Urine UA Negative (Negative); Leukocyte Esterase Urine Large (3+) (Negative); Nitrite Urine Positive (Negative); PH 5.5 (5.0-9.0); UMIC TRIGGER UACC YES; Urine Blood Moderate (2+) (Negative); Urine Ketones Trace mg/dL (Negative); Urine Protein 100 (2+) mg/dL (Neg-Trace)
[2024-06-04 14:53] LABS: Bacteria Urine 4+ (None Seen); Hyaline Casts Urine 0-2 /LPF (0-2); UACC Culture Trigger YES; WBC Urine >50 /HPF (0-5)
== END 2024-06-04 13:03 | disposition home or self-care (01) ==
LOC: HO.LAB 13:02
PROVIDERS: PCP Internal Medicine; Visit Provider Internal Medicine
DX: R30.0 Dysuria (principal); R82.90 Unspecified abnormal findings in urine
CPT/HCPCS: 81001; 87086; 87088; 87186

== ENCOUNTER 2024-06-17 11:34 | Outpatient (REF) | payer MEDICARE, MEDICAID, SELFPAY ==
[2024-06-17 13:16] LABS: Appearance Urine Clear; Color Urine Yellow; Glucose Urine UA Negative (Negative); Leukocyte Esterase Urine Negative (Negative); Nitrite Urine Negative (Negative); PH 5.5 (5.0-9.0); Urine Blood Negative (Negative); Urine Ketones Negative (Negative); Urine Protein Negative (Neg-Trace)
[2024-06-17 13:24] LABS: Influenza A PCR NEGATIVE (Negative); Influenza B PCR NEGATIVE (Negative); Resp Syncy Virus RNA Qual PCR NEGATIVE (Negative); SARS COV2 PCR INHOUSE NEGATIVE (Negative)
== END 2024-06-17 11:35 | disposition home or self-care (01) ==
LOC: HO.LAB 11:34
PROVIDERS: PCP Internal Medicine
DX: R06.09 Other forms of dyspnea (principal); F41.1 Generalized anxiety disorder; N39.0 Urinary tract infection, site not specified; R09.81 Nasal congestion; R09.89 Other specified symptoms and signs involving the circulatory and respiratory systems
CPT/HCPCS: 0241U; 81003; 99212

== ENCOUNTER 2024-06-17 11:34 | Outpatient (AMB) | payer MEDICARE, MEDICAID, SELFPAY ==
[2024-06-17 11:35] VITALS: BP 112/64; PULSE 79; O2SAT 97; BMI 24.6
--- NOTE | 2024-06-17 11:35 | A.OFFPC_ITS ---
Vital Signs 06/17/24 11:35 Height 5 ft 7 in Weight 157 lb 0.3 oz BMI 24.6 BP 112/64 Blood Pressure Location Lt brachial Position Sitting Pulse 79 Pulse Source Pulse Oximeter Pulse Oximetry (%) 97 Oxygen Delivery Method Room Air Intake Visit Reasons: [facility] 06/10 chest pain Intake Note: Patient is here for hospital discharge follow up. Patient was discharged from [facility] on 06/10 chest pain Allergies tramadol [TRAMADOL] Allergy (Severe, Verified 06/17/24 11:36) THROAT SWELLING aspirin [ASPIRIN] Allergy (Intermediate, Verified 06/17/24 11:36) GI UPSET - ABD PAIN, pain morphine [MORPHINE] Allergy (Intermediate, Verified 06/17/24 11:36) JITTERY, pain nitrofurantoin [From MACROBID] Allergy (Intermediate, Verified 06/17/24 11:36) HIVES codeine [CODEINE] Allergy (Unknown, Verified 06/17/24 11:36) pain oxycodone [Percocet] Allergy (Unknown, Verified 06/17/24 11:36) pain Sulfa (Sulfonamide Antibiotics) Allergy (Unknown, Verified 06/17/24 11:36) Nausea, diarrhea mirabegron [From Myrbetriq] Adverse Reaction (Intermediate, Verified 06/17/24 11:36) Dizziness sulfamethoxazole [From BACTRIM] Adverse Reaction (Intermediate, Verified 06/17/24 11:36) NAUSEA/DIARRHEA trimethoprim [From BACTRIM] Adverse Reaction (Intermediate, Verified 06/17/24 11:36) NAUSEA/DIARRHEA Propoxyphene HCl Allergy (Unknown, Uncoded 06/17/24 11:36) Unknown From DARVOCET-N 100 Adverse Reaction (Intermediate, Uncoded 06/17/24 11:36) ABD PAIN - NAUSEA Medication List - Last Reconciled 06/17/24 by Lissett Ahmadi PA-C cefdinir 300 mg PO BID cholecalciferol (vitamin D3) 25 mcg PO DAILY citalopram 40 mg PO DAILY cyanocobalamin (vitamin B-12) 1,000 mcg PO .Q once a week estradiol 0.5 mg PO DAILY lactobacillus combination no.8 (Adult Probiotic) 3,000 mmu cells PO DAILY [prevagen PO .QD] Tobacco use date assessed: 08/08/23 Fall risk assessment: No Falls in past year Last assessed Fall Risk: 11/25/24 Dental Screening Dental Screen Date: 08/08/23 HPI [facility] 06/10 chest pain HPI Details 78-year-old female with hypercholesterol emia, impaired glucose tolerance, peripheral vascular disease, and generalized anxiety disorder last seen April 2024 coming in for hospital discharge follow up. In revie notes patient was seen in [facility] ED 06/10/2024 for chest pain workup was reassuring and patient was discharged home. Patient has 2 concerns today. She states when she was in the hospital initially they told her to have an exercise stress test after discharge. She does have shortness of breath with exertion primarily when she is walking her dogs also feels shortness of breath when she has anxiety and stress. She also mentioned she woke up yesterday with a sore throat and was worse this morning. She states the sore throat we will resolve throughout the day but does continue to have it cough and sinus congestion. Symptoms have been present for 2 days [facility] Medical History Age-related osteoporosis without current pathological fracture Right leg pain Screening for breast cancer Overactive bladder Degenerative disc disease, lumbar Allergic rhinitis Mixed incontinence Hypercholesterolemia Vitamin D deficiency Surgical History Status post ablation of incompetent vein using laser (12/15/23) History of cataract surgery History of arthroscopy of left knee History of shoulder surgery History of hysterectomy History of cholecystectomy Family History Father Diabetes Myocardial infarction Heart disease Mother Heart disease Chronic mental illness Stomach cancer Sister Esophageal cancer Brother Esophageal cancer Paternal Grandfather Heart disease Social History Housing: House Alcohol intake: current Alcohol intake frequency: holidays/special occasions only Comment: glass of wine once a month Patient Tobacco Use Status: Never used Tobacco e-Cigarette/Vaping Use: Never Used Second Hand Smoke Exposure: No service: No Current occupational status: retired Cognitive needs: No Hearing needs: No Vision needs: Yes Questionnaire Thrive Questionnaire Date Thrive assessed: 08/08/23 AUDIT C Alcohol Use Questionnaire (AUDIT-C) 1. How often do you have a drink containing alcohol?: 2-3 times a week 2. How many drinks containing alcohol do you have on a typical day when you are drinking?: 1 or 2 3. How often do you have six or more drinks on one occasion?: Never Total Score: 3 Score Reviewed/Action Taken: No TEZ-7 AMB Questionnaire TEZ-7 Date TEZ - 7 assessed: 08/08/23 Source: Developed by Drs. Naeem Garza, Belia Leone, Esa Amaral and colleagues, with an educational dino from [employer]. Review of Systems Const Denies body aches, Denies chills, Denies fever(s), Denies headache(s) and Denies poor appetite Eyes Reports no additional complaints ENT Denies dysphagia, Denies dizziness, Denies headache(s), Reports nasal congestion, Reports nasal discharge, Denies odynophagia and Reports sinus pain Card Denies chest pain, Denies syncope, Denies edema, Denies irregular heart rhythm, Denies lightheadedness, Denies dyspnea and Reports dyspnea on exertion Resp Denies cough, Denies dyspnea and Reports dyspnea on exertion GI Denies abdominal pain, Denies constipation, Denies dysphagia, Denies diarrhea, Denies nausea, Denies odynophagia and Denies vomiting Reports no additional complaints Musc Reports no additional complaints and Denies abnormal gait Skin/Breast Reports system reviewed and no additional complaints, except as documented Neuro Denies abnormal gait, Denies dizziness, Denies syncope and Denies headache(s) Psych Reports no additional complaints Physical exam (Primary Care) Vital Signs: Last Vital Signs Pulse 79 06/17/24 11:35 BP 112/64 06/17/24 11:35 Pulse Ox 97 06/17/24 11:35 Oxygen Delivery Method Room Air 06/17/24 11:35 BMI result Body Mass Index 24.6 Tobacco/Smoking Status: Tobacco use Status Tobacco use date assessed 08/08/23 06/17/24 11:37 Patient Tobacco Use Status Never used Tobacco 06/17/24 11:37 e-Cigarette/Vaping Use Never Used 06/17/24 11:37 Thrive Assessment: Date of Thrive Assessment Date Thrive assessed 08/08/23 06/17/24 11:37 Const General: cooperative, healthy appearing, comfortable and no acute distress Orientation/consciousness: patient oriented x3 HENMT Head: Yes normocephalic Ears: hearing grossly normal bilaterally General nose exam: Normal external nose present Face and sinus: No sinus tenderness Throat: Yes posterior oropharynx normal, Yes tonsils normal and Yes uvula midline Eyes General: appearance normal, both eyes and all related structures Conjunctivae: conjunctivae normal Neck Neck: Yes full ROM and Yes no lymphadenopathy Resp Effort & Inspection: normal respiratory effort Auscultation: clear to auscultation bilaterally, no crackles, no rales, no rhonchi and no wheezes Cardio Rate: regular rate Rhythm: regular rhythm Skin General skin exam: no rashes or lesions noted Neuro General: patient oriented x3 Gait exam (Neuro): Normal gait present Extrem General: Yes normal to inspection, Yes full ROM and No edema Psych Affect: normal affect Attitude: cooperative Insight: Good insight present (Psych) Judgement: Good judgement present (Psych) Coding Level of Care Code Est Pt Level 3 (04755) Diagnoses Dyspnea on exertion R06.09 Generalized anxiety disorder F41.1 UTI (urinary tract infection) N39.0 Sinus congestion R09.81 Assessment & Plan Assessment & Plan (1) Dyspnea on exertion: Code(s): R06.09 - Other forms of dyspnea Category: Medical Plan: We will order for exercise stress test for further evaluation. Referral placed for counseling. Reviewed red flag symptoms and when to present for re- evaluation (2) Generalized anxiety disorder: Code(s): F41.1 - Generalized anxiety disorder Category: Medical Plan: Referral placed for outpatient counseling. (3) UTI (urinary tract infection): Code(s): N39.0 - Urinary tract infection, site not specified Category: Medical Plan: Ordered for repeat urinalysis patient is asymptomatic at this time (4) Sinus congestion: Code(s): R09.81 - Nasal congestion Category: Medical Plan: Ordered for viral testing. At advised patient to reach out to the office if symptoms worsen or she develops a fever. Plan This note was constructed using voice recognition software. While every effort has been made to ensure accuracy and customizer, still areas may have been included sometimes these areas may affect the content or meeting of the given symptoms. Total time spent caring for the patient today was 20 minutes. This includes time spent before the visit reviewing the chart, time spent during the visit, and time spent after the visit and documentation. Orders: Orders CA stress test Today R06.09 - Other forms of dyspnea SARS-CoV2/FLU/RSV Today R09.89 - Other specified symptoms and signs involving the circulatory and respiratory systems UA CC w/rflx Micro + Cult Today N39.0 - Urinary tract infection, site not specified Referrals Counseling Referral F41.1 - Generalized anxiety disorder
== END 2024-06-17 12:04 | disposition home or self-care (01) ==
PROVIDERS: PCP Internal Medicine
DX: R06.09 Other forms of dyspnea (principal); F41.1 Generalized anxiety disorder; N39.0 Urinary tract infection, site not specified; R09.81 Nasal congestion

== ENCOUNTER → 2024-07-25 09:02 | Outpatient (REF) | payer MEDICARE, MEDICAID, SELFPAY ==
--- NOTE | 2024-07-25 09:07 | CA_ITS ---
Acquisition Time: 2024-07-25 09:20:48 Total Exercise Time: 00:03:47 Test Indications: chest pain Medications: Protocol: NATALIIA Max HR: 130 BPM 90% of Pred: 144 BPM Max BP: 140/074 mmHG Max Work Load: 5.5 METS Exercise Stress Test with exercise 3 mins 47 secs of Nataliia Protocol, achieving 89% MPHR, with reports of right shoulder pain, requesting to slow down, no chest discomfort or SOB, without any arrythmias, with normotensive reponse to exercise. Without EKG changes at the achieved workload meeting criteria for ischemia. In recovery, the shoulder pain resolved quickly. Test reviewed with Dr. Hung. Referred By: Lissett Ahmadi Overread By: Ramesh Chaves
--- OUTSIDE RECORDS SUMMARY | 2024-07-25 09:07 | XMS_ITS | Patient Health Record ---
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 Name Role Phone Fabiano Mckeon MD Primary Care Provider Prem Coe Jr Unavailable ALLERGIES Allergen (clinical drug ingredient) Drug/Non Drug Allergy documented on EMR Reaction Allergy Type Onset Date Status tramadol Tramadol HCl SOB Drug Allergy Acti ve acetaminophen / oxycodone Percocet vomiting Drug Allergy Active most pain medications (uncoded) stomach upset Allergy Active REASON FOR REFERRAL No Information MEDICATIONS Medication SIG (Take, Route, Frequency, Duration) Notes Start Date End Date Status Citalopram Hydrobromide 10 MG 1 tablet Orally Once a day Active Estrace 0.5 MG 1 tablet Orally daily Active Flax Seed Oil Active Advil 200 MG 2 tablet as needed O rally at HS Active Vitamin D3 Active Probiotic Active SOCIAL HISTORY Tobacco Use: Social History Observation Description Date Details (start date - stop date) Former Smoker NA - NA Sex Assigned At : Social History Observation Description Sex Assigned At Unknown Tobacco Use/Smoking Question Answer Notes Patient is a former smoker When did you stop smoking? 28 years ago How long has it been since you last smoked? > 10 years PROBLEMS Problem Type ICD Code Onset Dates Problem Status W/U Status Risk SNOMED Code Notes Problem Rectal bleeding (K62.5) Active confirmed 49483641 Problem Irritable bowel syndrome with both constipation and diarrhea (K58.2) Active confirmed 88083560 Problem Gastroesophageal reflux disease without esophagitis (K21.9) Active confirmed 428623889 PLAN OF TREATMENT Future Test Test Name Order Date COLONOSCOPY 04/29/2015 Insurance Providers Payer Name Payer Address Payer Phone Subscriber Number Group Number Insured Name Patient Relationship to Insured Coverage Start Date Coverage End Date MEDICARE OF [place] [address] [place] [id number] [phone] [id number] LILY VENCES Self - patient is the insured MEDICAID OF [facility] [address] [place] [phone] [id number] LILY VENCES Self - patient is the insured MEDICAL (GENERAL) HISTORY Medical History History ICD Code tubular adenoma 09/26, last colonoscopy , no adenomas. elevated cholesteroll hiatal hernia reflux disease chest pain SOB Surgical History Surgery Date(Month/Year) cholecystectomy hysterectomy knee surgery hand surgery scoped shoulders
== END ==
LOC: HO.CARD 09:02
PROVIDERS: PCP Internal Medicine
DX: R06.09 Other forms of dyspnea (principal)
CPT/HCPCS: 93017

== ENCOUNTER → 2024-07-25 09:07 | Outpatient (BNV) | payer MEDICARE, MEDICAID, SELFPAY | PROVIDERS: PCP Internal Medicine | DX: R07.9 Chest pain, unspecified (principal) | CPT/HCPCS: 93016; 93018 ==

== ENCOUNTER → 2024-08-14 08:13 | Outpatient (REF) | payer MEDICARE, MEDICAID, SELFPAY ==
--- NOTE | ~2024-08-14 | NM_ITS ---
Lexiscan Myocardial perfusion study Indication: Chest pain Technique: The patient was brought in for a Lexiscan perfusion study on 08/14/2024 and was injected 0.4 mg of Lexiscan intravenously. Within a minute of this injection 25 mCi of sestamibi was given intravenously. Images were obtained using the SPECT gamma camera interlaced with the gating device. Images were obtained in supine position. Resting perfusion study was performed on 08/15/2024. Patient was administered 25 mCi of sestamibi intravenously at rest. Images were then obtained in supine position. Total DLP 192 mGy-cm. Images were processed with the software and compared side to side in short axis, horizontal long axis and vertical long axis views. Findings: Raw aquisition reviewed. Arms by the patient's side. The stress perfusion study showed decreased tracer uptake along the inferior wall, basal to midportion. There is improvement with CT attenuation correction suggestive of diaphragmatic attenuation artifact. The gated study shows normal LV systolic function with calculated LVEF of 68%. LV cavity is normal in size. The gated study shows normal wall thickening and contraction of segments. Resting study shows diminished tracer uptake along the inferior wall but there is improvement compared to stress acquisition. There is improvement with CT attenuation correction suggestive of diaphragmatic attenuation artifact. Gating at rest reveals normal wall motion with ejection fraction at 65%. The findings are consistent with mixed reversible/fixed perfusion defect in the inferior wall. More likely artifactual. NM/NM cardiolite stress test Impression: 1. Myocardial perfusion imaging study shows mixed reversible/fixed perfusion defect in the inferior wall. Probably artifactual. Less likely due represent true ischemia/infarct 2. Gated LVEF is 68% during stress and 65% during rest. 3. Transient ischemic dilatation not present. EKG component of the test reported separately. Electronically signed by: Dave Waite MD 08/15/2024 03:38 PM [facility]
--- OUTSIDE RECORDS SUMMARY | 2024-08-14 08:18 | XMS_ITS | Patient Health Record ---
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 Name Role Phone Fabiano Mckeon MD Primary [...] Notes Problem Rectal bleeding (K62.5) Active confirmed 96801286 Problem Irritable bowel syndrome with both constipation and diarrhea (K58.2) Active confirmed 11108679 Problem Gastroesophageal reflux disease without esophagitis (K21.9) Active confirmed [id number] PLAN OF TREATMENT Future Test Test Name Order Date COLONOSCOPY 04/29/2015 Insurance Providers Payer Name Payer Address Payer Phone Subscriber Number Group Number Insured Name Patient Relationship to Insured Coverage Start Date Coverage End Date MEDICARE OF [place] [address] [place] [id number] [phone] [id number] LILY VENCES Self - patient is the insured MEDICAID OF [facility] [address] [place] [phone] [id number] LILY VENCES Self - patient is the insured MEDICAL (GENERAL) HISTORY Medical History History ICD Code tubular adenoma 09/26, last colonoscopy , no adenomas. elevated cholesteroll hiatal hernia reflux disease chest pain SOB Surgical History Surgery Date(Month/Year) cholecystectomy hysterectomy knee surgery hand surgery scoped shoulders
--- NOTE | 2024-08-14 08:20 | CA_ITS ---
Acquisition Time: 2024-08-14 08:27:54 Total Exercise Time: 00:02:00 Test Indications: CP Medications: SEE H&P Protocol: LEXISCAN Max HR: 105 BPM 72% of Pred: 144 BPM Max BP: 124/72 mmHG Max Work Load: 1.6 METS Pharamcologic Stress Test with Lexiscan while pt walks on the treadmill at 1mph, with reports of SOB, nausea, and dizziness, withisolated PAC, with normotensive response to injection. Nondiagnostic EKG for ischemia. In recovery, pt treated with IVP Aminophylline 75 mg to reverse Lexiscan after which pt feeling back to baseline. Nuclear images pending. Test reviewed with . Referred By: Lissett Ahmadi Electronically Signed By: Ramesh Chaves
== END ==
LOC: HO.CARD 08:13
PROVIDERS: PCP Internal Medicine
DX: R94.39 Abnormal result of other cardiovascular function study (principal)
CPT/HCPCS: 78452; 93017; A9500; J0280; J2785

== ENCOUNTER → 2024-08-14 08:20 | Outpatient (BNV) | payer MEDICARE, MEDICAID, SELFPAY | PROVIDERS: PCP Internal Medicine | DX: R06.02 Shortness of breath (principal); I49.1 Atrial premature depolarization | CPT/HCPCS: 78452; 93016; 93018 ==

== ENCOUNTER 2024-09-14 13:30 | Inpatient (IN) | payer MEDICARE, MEDICAID, SELFPAY ==
--- NOTE | ~2024-09-14 | MR_ITS ---
CLINICAL HISTORY: Dizziness, unsteady gait, R O cerebellar stroke MR of the brain without contrast Comparison: CT/SR - CT HEAD/BRAIN WO IV CON - 09/14/24 14:[address]/SR - CT HEAD/BRAIN WO IV CON - 06/12/23 19:59 EST Findings: There is restricted diffusion in the right thalamus measuring 0.5 x 0.8 cm (series 7 and 8, image 14 ). There is associated increased signal on the FLAIR/T2 weighted images ( series 6 and 12, image 14). No hemorrhage, mass-effect or herniation. No hydrocephalus. Increased signal intensity is seen in the deep and periventricular white matter on the T2/FLAIR sequences, which most likely represents the sequela of chronic small vessel ischemic disease. No extra-axial fluid collection or mass. Unremarkable sella. Intact flow voids. Normal orbits. Clear paranasal sinuses and mastoid air cells. Unremarkable osseous structures. Impression: Acute infarction in the right thalamus measuring 8 mm. This document has been electronically signed by: Maya Craig MD on 09/14/2024 16:37:48
--- NOTE | ~2024-09-14 | CT_ITS ---
CLINICAL HISTORY: fall, feels as though head is falling forward CT cervical spine without contrast Comparison: CT/REG/SR - CT CERVICAL SPINE WO IV CON - 06/12/23 19:59 EST Findings: Mild multilevel anterolisthesis, degenerative and similar to the prior study. No fracture. Unchanged appearance of the anterior arch of C1. No severe central spinal canal stenosis. No epidural hematoma. Normal thickness of the prevertebral soft tissues. Trace biapical scarring. Mild emphysema. Impression: No acute findings. This document has been electronically signed by: Maya Craig MD on 09/14/2024 15:55:38
--- NOTE | ~2024-09-14 | CT_ITS ---
CLINICAL HISTORY: fal, head strike CT head without contrast Comparison: CT/SR - CT HEAD/BRAIN WO IV CON - 06/12/23 19:59 EST Findings: No acute hemorrhage. No extra-axial fluid collection. No hydrocephalus, mass-effect or herniation. Padron-white differentiation is maintained. There is patchy hypoattenuation of the periventricular and deep white matter, which is most likely the sequela of moderate chronic small vessel ischemic disease and is similar to the prior study. No acute orbital pathology. No acute soft tissue abnormality. No fracture. The visualized paranasal sinuses are predominantly clear. The mastoid air cells are clear. Impression: No acute findings. This document has been electronically signed by: Maya Craig MD on 09/14/2024 16:01:12
--- NOTE | ~2024-09-14 | CT_ITS ---
CLINICAL HISTORY: fall, feels as though jaw is sliding forward CT maxillofacial without contrast Comparison: CT/SR - CT FACIAL BONES WO IV CON - 06/12/23 19:59 EST Findings: No acute fracture. Tiny nasal bone fractures, chronic. No subluxation or dislocation of the temporomandibular joints. No acute orbital or intracranial findings. Clear paranasal sinuses and mastoid air cells. Unremarkable soft tissues. Impression: No acute fracture. This document has been electronically signed by: Maya Craig MD on 09/14/2024 16:02:55
--- NOTE | ~2024-09-14 | US_ITS ---
CLINICAL HISTORY: stroke US Bilateral Carotid Duplex Comparison: None Findings: No significant plaque within the common carotid arteries. No significant plaque within the carotid bulbs. Normal color doppler and waveforms morphology. Peak systolic velocities: Right CCA: 72 cm/s. Right ICA: 88 cm/s. ICA/CCA ratio: 1.2. Right ECA: 83 cm/s. Right vertebral artery flow 41 cm/s. Left CCA: 98 cm/s. Left ICA: 129 cm/s. ICA/CCA ratio: 1.3. Left ECA: 80 cm/s. Left vertebral artery flow 55 cm/s. IMPRESSION: Based on NASCET type velocity criteria, a 50-79% stenosis suggested left ICA. All other parameters are within the normal range, and conceivably may be artifactual. Consider follow-up CTA if no contraindication. Less than 50% stenosis right ICA Bilateral antegrade vertebral flow. This document has been electronically signed by: Gary Fregoso MD on 09/15/2024 09:18:17
--- NOTE | 2024-09-14 13:43 | ED_ITS ---
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 Vaughn HPI narrative: 79-year-old female brought in by her daughter for evaluation of 3 days of feeling dizziness, unsteady gait x3 days because of unsteadiness in her gait patient had a multiple fall over the last 3 days at home with history of head strike but no LOC. 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 No double vision, no blurry vision, no loss of vision, no headache, no weakness, no numbness. No CP, no SOB, no abdominal pain. Related Data Home Medications ?Medication ?Instructions ?Recorded ?Confirmed cholecalciferol (vitamin D3) 25 25 mcg PO DAILY 07/31/20 06/17/24 mcg (1,000 unit) capsule estradiol 0.01% (0.1 mg/gram) 1 g vaginal TUFR@0900 09/14/24 vaginal cream Previous Rx's ?Medication ?Instructions ?Recorded citalopram 40 mg tablet 40 mg PO DAILY #90 tabs 07/03/24 estradiol 0.5 mg tablet 0.5 mg PO DAILY #90 tabs 07/03/24 Allergies Allergy/AdvReac Type Severity Reaction Status Date / Time tramadol [TRAMADOL] Allergy Severe THROAT Verified 09/14/24 13:48 SWELLING aspirin [ASPIRIN] Allergy Intermediate GI UPSET - Verified 09/14/24 13:48 ABD PAIN, pain morphine [MORPHINE] Allergy Intermediate JITTERY, Verified 09/14/24 13:48 pain nitrofurantoin Allergy Intermediate HIVES Verified 09/14/24 13:48 [From MACROBID] codeine [CODEINE] Allergy Unknown pain Verified 09/14/24 13:48 oxycodone [Percocet] Allergy Unknown pain Verified 09/14/24 13:48 Sulfa (Sulfonamide Allergy Unknown Nausea, Verified 09/14/24 13:48 Antibiotics) diarrhea mirabegron [From Myrbetriq] AdvReac Intermediate Dizziness Verified 09/14/24 13:48 sulfamethoxazole AdvReac Intermediate NAUSEA/DIAR Verified 09/14/24 13:48 [From BACTRIM] ZAHRAA trimethoprim [From BACTRIM] AdvReac Intermediate NAUSEA/DIAR Verified 09/14/24 13:48 ZAHRAA Propoxyphene HCl Allergy Unknown Unknown Uncoded 06/17/24 11:36 From DARVOCET-N 100 AdvReac Intermediate ABD PAIN - Uncoded 06/17/24 11:36 NAUSEA Review of Systems 2 Review of Systems: All other systems are reviewed and are negative Constitutional: Reports as per HPI and Reports no additional constitutional complaints Eyes: Reports as per HPI and Reports no additional eye complaints Reports system reviewed and no additional complaints, except as documented Cardiovascular: Reports as per HPI and Reports no additional cardiovascular complaints Respiratory: Reports as per HPI and Reports no additional respiratory complaints Gastrointestinal: Reports as per HPI and Reports no additional gastrointestinal complaints Genitourinary: Reports no additional female genitourinary complaints Musculoskeletal: Reports no additional musculoskeletal complaints Skin/Breast: Reports system reviewed and no additional complaints, except as docu Psychiatric: Reports no additional psychiatric complaints Endocrine: Reports no additional endocrine complaints Hematologic/Lymphatic: Reports no additional hematologic/lymphatic complaints Allergic/Immunologic: Reports no additional allergic/immunologic complaints Reports system reviewed and no additional complaints, except as documented and Reports Abnormal speech present [facility] Past Medical History Medical History Age-related osteoporosis without current pathological fracture Right leg pain Screening for breast cancer Overactive bladder Degenerative disc disease, lumbar Allergic rhinitis Mixed incontinence Hypercholesterolemia Vitamin D deficiency Surgical History Status post ablation of incompetent vein using laser (12/15/23) History of cataract surgery History of arthroscopy of left knee History of shoulder surgery History of hysterectomy History of cholecystectomy Family History Family History Father Diabetes Myocardial infarction Heart disease Mother Heart disease Chronic mental illness Stomach cancer Sister Esophageal cancer Brother Esophageal cancer Paternal Grandfather Heart disease Social History Social History Housing: House Alcohol intake: current Alcohol intake frequency: holidays/special occasions only Comment: glass of wine once a month Patient Tobacco Use Status: Never used Tobacco Smoked in Last 30 Days: No e-Cigarette/Vaping Use: Never Used Second Hand Smoke Exposure: No Use of substances other than those prescribed or required for medical reasons: No Advance Directives: No Advance Directives Information Provided: No Do you have a plan to hurt others: No Plan service: No Current occupational status: retired Cognitive needs: No Hearing needs: No Vision needs: Yes Physical Exam ED Vital Signs: Vital Signs - 24 hr 09/14/24 13:46 09/14/24 17:35 Temperature 97.8 F Pulse Rate 68 66 Respiratory Rate 18 18 Blood Pressure 159/78 H 162/73 H Pulse Oximetry 94 97 Oxygen Delivery Method Room Air Room Air BMI result Body Mass Index 26.1 Vital signs have been reviewed and appear to be correct. Blood pressure elevated. Heart rate normal. Respiratory rate normal. Temperature normal. Oxygen saturation normal. Appearance: Alert. Oriented X3. No acute distress. Head: Normal external exam. Normocephalic. Atraumatic. No Salas signs noted. No raccoon eyes noted Eyes: PERRLA. EOMI. Conjunctiva and sclera normal. Eyelids normal. ENT: TM's Normal. Pharynx normal. Uvula midline. Moist mucous membranes. No trismus noted. No drooling noted. No muffled voice noted. Neck: Normal inspection. Neck supple. FROM. No adenopathy. Thyroid Normal. No meningeal signs. No neck mass noted. CVS: Normal heart rate and rhythm. Heart sound normal. No murmurs noted. Pulses normal throughout. Respiratory: No respiratory distress. Painless inspiration. Breath sounds normal. No wheezes/rales/rhonchi noted. Chest nontender. No accessory muscle usage noted or decreased air movement noted. Abdomen: Soft and nontender. Bowel sounds normal in all 4 quadrants. No distention noted. No organomegaly noted. No visible injury noted. Back: No CVA tenderness. Full range of motion noted. Skin: Skin warm and dry. Normal skin color. Normal skin turgor. No rashes/lesions/lacerations noted. Extremities: No lower extremity edema. Extremities exhibit normal range of motion. Extremities nontender. Neuro: Mental status: Normal attention, orientation, memory, and affect. Cranial nerves: Pupils are equal, round and reactive to light, EOMI, visual infante are fall, slight left facial droop with decrease sensation to light touch of the left side. Motor examination normal muscle tone, strength to 4 extremities. DTR are +2, planter's are flexor. Sensory exam; normal coordination, no ataxia, gait stable. Cerebellar exam: Iepivg-ef-oimi dysmetria mostly on the left side. Extrapyramidal system: No tremors, no rigidity with normal facial expressions. Pronator drift not present NIH Stroke Scale Time: 14:26 Level of Consciousness: Alert Level of Consciousness Questions: Answers both questions correctly Level of Consciousness Commands: Performs both tasks correctly Best Gaze: Normal Visual: No visual loss Facial Palsy: Minor paralyis Motor Arm (Right): No drift Motor Arm (Left): No drift Motor Leg (Right): No drift Motor Leg (Left): No drift Limb Ataxia: Absent Sensory: Normal Best Language: No aphasia Dysarthia: Normal Extinction and Inattention: No abnormality Score: 1 Course Course Course Narrative: RME performed by Marylou Verduzco PA-C. Patient is a 79 year old assigned female at presenting to the emergency department with unsteadiness and multiple falls. Patient states that over the last 3 days she has been unsteady on her feet and has had multiple falls. Patient states that her head / neck / jaw feel connected wrong on her spine and like it's sliding forward. Detailed physical exam and review of systems are deferred to the advertising agent. EKG, labs, imaging, and swabs ordered. 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 Reevaluation(s) Reevaluation #1: 79-year-old female presented to the ED for 3 days of unsteady gait and dizziness, MRI is confirming acute stroke in the right thalamus, patient is not a candidate for TNK/thrombolysis due to delayed presentation after symptoms started (3 days ago). Will admit to the hospitalist service, start aspirin. Time: 16:58 Reevaluation #2: UTI with no sepsis, will start on ceftriaxone. Time: 17:59 Medications Administered Discontinued Medications Generic Name Dose Route Start Last Admin Trade Name Freq PRN Reason Stop Dose Admin Aspirin 325 mg 09/14/24 16:47 09/14/24 17:09 Aspirin Enteric Coated 325 Mg Tablet.Dr SALVADOR 09/14/24 16:48 325 mg ONCE ONE Administration Lorazepam 0.5 mg 09/14/24 14:46 09/14/24 14:51 Lorazepam 2 Mg/Ml Vial IVPUSH 09/14/24 14:47 0.5 mg ONCE ONE Administration Medical Decision Making Differential Diagnosis Differential Diagnoses: The differential diagnosis associated with the presentation includes (Ischemic CVA, hemorrhagic CVA, cervical spine injury, facial fracture, electrolyte derangement, severe anemia, ACS, electrolyte derangement.) Admission/Observation Consideration of admission/observation: Escalation of care including admission/observation considered Consult Healthcare Provider Management of the patient was discussed with: Hospitalist (Leona Leung) Lab Data MDM Lab Attestation statement: I reviewed the patient's lab results. 09/14/24 14:00 09/14/24 14:00 Labs: Lab Results 09/14/24 09/14/24 09/14/24 Range/Units 13:57 14:00 17:05 WBC 8.2 (4.8-10.8) X10*3/uL RBC 5.10 (4.20-5.50) X10*6/uL Hgb 13.3 (12.0-16.0) g/dl Hct 41.1 (37.0-47.0) % MCV 80.6 (80.0-98.0) fL MCH 26.1 L (27.0-33.0) pg MCHC 32.4 (31.0-35.0) g/dl RDW 14.2 (11.0-16.0) % Plt Count 299 (160-400) X10*3/uL MPV 10.6 (9.4-12.3) fL Immature Gran % (Auto) 0.2 (0.0-0.4) % Neut % (Auto) 50.9 (45-73) % Lymph % (Auto) 36.4 (20-40) % [place] % (Auto) 9.3 (2-11) % Eos % (Auto) 2.1 (0-4) % Baso % (Auto) 1.1 (0-2) % Lymph # (Auto) 3.0 (1.2-4.9) X10*3/uL [place] # (Auto) 0.8 (0.1-1.2) X10*3/uL Eos # (Auto) 0.2 (0.0-0.4) X10*3/uL Baso # (Auto) 0.1 (0.0-0.2) X10*3/uL Abs Immat Gran (auto) 0.02 (0.00-0.03) X10*3/uL Absolute Neuts (auto) 4.2 (2.0-8.3) x10*3/uL Absolute Nucleated RBC 0.000 (0.0-0.012) X10*3/uL Nucleated RBC % (auto) 0.0 (0.0-0.2) /100WBC Hold Purple Top SEE NOTE PT 11.3 (10.9-12.4) SEC INR 1.0 (0.9-1.1) APTT 35.2 (26.0-36.8) SEC Sodium 141 (135-145) mmol/L Potassium 4.5 (3.3-5.1) mmol/L Chloride 106 (96-108) mmol/L Carbon Dioxide 27 (22-29) mmol/L Anion Gap 13 (12-20) BUN 22 H (9-16) mg/dL Creatinine 1.14 (0.5-1.4) mg/dL Estim Creat Clear Calc 40.9 Estimated GFR 46 Random Glucose 87 (60-115) mg/dL Calcium 9.7 (8.4-10.2) mg/dL Magnesium 2.0 (1.6-2.6) mg/dL Total Bilirubin 0.3 (0.0-1.0) mg/dL AST 20 (5-31) U/L ALT 14 (0-31) U/L Alkaline Phosphatase 47 (39-117) U/L Troponin I High Sens 2.7 (<3.5-17.0) ng/L Total Protein 7.7 (6.5-8.0) g/dL Albumin 4.0 (3.5-5.0) g/dL Urine Color Yellow Urine Appearance Turbid Urine pH 6.0 (5.0-9.0) Ur Specific [place] 1.010 (1.005-1.025) Urine Protein Negative (Neg-Trace) mg/dL Urine Glucose (UA) Negative (Negative) mg/dL Urine Ketones Negative (Negative) mg/dL Urine Blood Trace H (Negative) Urine Nitrite Positive H (Negative) Ur Leukocyte Esterase Large (3+) H (Negative) Influenza Type A (PCR) NEGATIVE (Negative) Influenza Type B (PCR) NEGATIVE (Negative) RSV RNA Qual (PCR) NEGATIVE (Negative) SARS-CoV-2 RNA (RT-PCR) NEGATIVE (Negative) Independent Interpretation I performed an independent interpretation of an: CT Scan (Head/face/cervical spine: No acute findings.) Interpretation: Brain MRI:Acute infarction in the right thalamus measuring 8 mm. Radiology Impression Discussion of test interpretation with radiology: I have reviewed the radiologist's reading. Discharge Plan Discharge Clinical Impression: Acute CVA (cerebrovascular accident) Patient Disposition: Admitted As Inpatient Print Language: Croatian
[2024-09-14 13:46] VITALS: BP 159/78; PULSE 68; RESP 18; TEMP 36.6; O2SAT 94; BMI 26.1
--- NOTE | 2024-09-14 13:46 | ECG_ITS ---
Test Reason : DIZZINESS Blood Pressure : */* mmHG Vent. Rate : 64 BPM Atrial Rate : 64 BPM P-R Int : 164 ms QRS Dur : 88 ms QT Int : 464 ms P-R-T Axes : 31 25 23 degrees QTcB Int : 478 ms Normal sinus rhythm Nonspecific ST and T wave abnormality Abnormal ECG When compared with ECG of 22-Oct-2018 23:30, Nonspecific T wave abnormality now evident in Lateral leads Referred By: Marylou Verduzco Electronically Signed By: ROXIE ALANIS
[2024-09-14 14:04] LABS: MANUAL DIFF FLAG NO
[2024-09-14 14:06] LABS: Basophils Absolute Auto 0.1 X10*3/uL (0.0-0.2); Basophils Percent Auto 1.1 % (0-2); Eosinophils Absolute Auto 0.2 X10*3/uL (0.0-0.4); Eosinophils Percent Auto 2.1 % (0-4); Hematocrit 41.1 % (37.0-47.0); Hemoglobin 13.3 g/dl (12.0-16.0); Imm Gran Abs Auto 0.02 X10*3/uL (0.00-0.03); Imm Gran Pct Auto 0.2 % (0.0-0.4); Lymphocytes Percent Auto 36.4 % (20-40); Mean Corpuscular HGB Conc 32.4 g/dl (31.0-35.0); Mean Corpuscular Hemoglobin 26.1 pg (27.0-33.0); Mean Corpuscular Volume 80.6 fL (80.0-98.0); Mean Platelet Volume 10.6 fL (9.4-12.3); Monocytes Absolute Auto 0.8 X10*3/uL (0.1-1.2); Monocytes Percent Auto 9.3 % (2-11); Neutrophils Absolute Auto 4.2 x10*3/uL (2.0-8.3); Neutrophils Percent Auto 50.9 % (45-73); Platelet Count 299 X10*3/uL (160-400); Red Cell Distribution Width 14.2 % (11.0-16.0); White Blood Count 8.2 X10*3/uL (4.8-10.8)
[2024-09-14 14:14] LABS: Prothrombin Time 11.3 SEC (10.9-12.4)
[2024-09-14 14:17] LABS: Partial Thromboplastin Time 35.2 SEC (26.0-36.8)
[2024-09-14 14:19] LABS: Alanine Aminotransferase 14 U/L (0-31); Alkaline Phosphatase 47 U/L (39-117); Anion Gap 13 (12-20); Aspartate Amino Transferase 20 U/L (5-31); Bilirubin Total 0.3 mg/dL (0.0-1.0); Blood Urea Nitrogen 22 mg/dL (9-16); Calcium 9.7 mg/dL (8.4-10.2); Carbon Dioxide 27 mmol/L (22-29); Chloride 106 mmol/L (96-108); Creatinine Clr Calc Pharmacy 40.9; Estimated Glomerular Filt Rate 46; Glucose Random 87 mg/dL (60-115); Potassium 4.5 mmol/L (3.3-5.1); Sodium 141 mmol/L (135-145); Total Protein 7.7 g/dL (6.5-8.0)
[2024-09-14 14:26] LABS: Troponin-I High Sensitivity 2.7 ng/L (<3.5-17.0)
[2024-09-14] MEDS: LORazepam 2 MG/ML VIAL 0.5 MG IVPUSH (14:51)
[2024-09-14 15:00] LABS: Influenza A PCR NEGATIVE (Negative); Influenza B PCR NEGATIVE (Negative); Resp Syncy Virus RNA Qual PCR NEGATIVE (Negative); SARS COV2 PCR INHOUSE NEGATIVE (Negative)
--- NOTE | 2024-09-14 16:34 | MHC.EDTECH ---
pt was in the hallway with no available rooms to slide her in to obtain ekg, then went to mri. EKG obtained late, RN aware, obtained at 1630
[2024-09-14] MEDS: Aspirin Enteric Coated 325 MG TABLET.DR PO (17:09)
[2024-09-14 17:27] LABS: Appearance Urine Turbid; Color Urine Yellow; Glucose Urine UA Negative (Negative); Leukocyte Esterase Urine Large (3+) (Negative); Nitrite Urine Positive (Negative); UMIC TRIGGER UACC YES; Urine Blood Trace (Negative); Urine Ketones Negative (Negative); Urine Protein Negative (Neg-Trace)
[2024-09-14 17:32] LABS: Bacteria Urine 4+ (None Seen); Hyaline Casts Urine 0-2 /LPF (0-2); RBC Urine 0-2 /HPF (0-2); UACC Culture Trigger YES; WBC Urine >50 /HPF (0-5)
[2024-09-14 17:35] VITALS: BP 162/73; PULSE 66; RESP 18; O2SAT 97
--- NOTE | 2024-09-14 18:11 | MHC.EDTECH ---
pt moved onto hospital bed, ate food daughter brought in, daughter remains at bedside, resting quietly at this time
--- NOTE | 2024-09-14 18:17 | P.HPHOSP_ITS ---
History of Present Illness Date of Service: 09/14/24 Chief Complaint: Weakness 79-year-old woman presenting to the ER with complaints of feeling off balance and lip numbness. She reported approximately 2 days ago she was feeling off balance and was having mechanical falls at home with no loss of consciousness. One of the falls she did hit her head but without injury. 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 Her daughter told her that she needed to come to the ER to be evaluated. Patient denied chest pain, shortness breath, nausea, vomiting, diarrhea, recent travel, sick contacts. Brain MRI showed acute infarction in the right thalamus measuring 8 mm. Labs all within acceptable limits, UA positive but patient does report chronic urinary tract infections. At this time patient is able to ambulate with some mild gait abnormality, she is communicating properly. Plan will be to admit patient for further management and treatment of acute stroke. Review of Systems 2 Review of Systems: Denies any recent fever chills or decrease in appetite respiratory denies any shortness of breath or cough cardiovascular denied chest pain gastrointestinal denies any dysphagia abdominal pain nausea vomiting or diarrhea genitourinary denies any dysuria frequency or hematuria musculoskeletal denies any joint pain or swelling neuropsych denies any weakness or seizures all other systems reviewed are negative [facility] Medical History Age-related osteoporosis without current pathological fracture Right leg pain Screening for breast cancer Overactive bladder Degenerative disc disease, lumbar Allergic rhinitis Mixed incontinence Hypercholesterolemia Vitamin D deficiency Family History Father Diabetes Myocardial infarction Heart disease Mother Heart disease Chronic mental illness Stomach cancer Sister Esophageal cancer Brother Esophageal cancer Paternal Grandfather Heart disease Surgical History Status post ablation of incompetent vein using laser (12/15/23) History of cataract surgery History of arthroscopy of left knee History of shoulder surgery History of hysterectomy History of cholecystectomy Social History Housing: House Alcohol intake: current Alcohol intake frequency: holidays/special occasions only Comment: glass of wine once a month Patient Tobacco Use Status: Never used Tobacco Smoked in Last 30 Days: No e-Cigarette/Vaping Use: Never Used Second Hand Smoke Exposure: No Use of substances other than those prescribed or required for medical reasons: No Advance Directives: No Advance Directives Information Provided: No Do you have a plan to hurt others: No Plan service: No Current occupational status: retired Cognitive needs: No Hearing needs: No Vision needs: Yes Meds Allergies Allergy/AdvReac Type Severity Reaction Status Date / Time tramadol [TRAMADOL] Allergy Severe THROAT Verified 09/14/24 13:48 SWELLING morphine [MORPHINE] Allergy Intermediate JITTERY, Verified 09/14/24 13:48 pain nitrofurantoin Allergy Intermediate HIVES Verified 09/14/24 13:48 [From MACROBID] codeine [CODEINE] Allergy Unknown pain Verified 09/14/24 13:48 oxycodone [Percocet] Allergy Unknown pain Verified 09/14/24 13:48 Sulfa (Sulfonamide Allergy Unknown Nausea, Verified 09/14/24 13:48 Antibiotics) diarrhea mirabegron [From Myrbetriq] AdvReac Intermediate Dizziness Verified 09/14/24 13:48 sulfamethoxazole AdvReac Intermediate NAUSEA/DIAR Verified 09/14/24 13:48 [From BACTRIM] ZAHRAA trimethoprim [From BACTRIM] AdvReac Intermediate NAUSEA/DIAR Verified 09/14/24 13:48 ZAHRAA aspirin [ASPIRIN] AdvReac Mild GI UPSET - Verified 09/14/24 18:49 ABD PAIN, pain Propoxyphene HCl Allergy Unknown Unknown Uncoded 06/17/24 11:36 From DARVOCET-N 100 AdvReac Intermediate ABD PAIN - Uncoded 06/17/24 11:36 NAUSEA Home Medications ?Medication ?Instructions ?Recorded ?Confirmed ?Last Taken ?Type cholecalciferol (vitamin D3) 25 25 mcg PO DAILY 07/31/20 06/17/24 Unknown History mcg (1,000 unit) capsule Prevagen 1 tab PO DAILY 09/14/24 09/14/24 09/14/24 History estradiol 0.01% (0.1 mg/gram) 1 g vaginal TUFR@0900 09/14/24 Unknown History vaginal cream melatonin 3 mg tablet 3 mg PO BEDTIME 09/14/24 09/14/24 Unknown History Physical Exam 2 Vital Signs and Narrative: Vital Signs: Last Vital Signs Temp 97.8 F 09/14/24 13:46 Pulse 66 09/14/24 17:35 Resp 18 09/14/24 17:35 BP 162/73 H 09/14/24 17:35 Pulse Ox 97 09/14/24 17:35 O2 Del Method Room Air 09/14/24 17:35 BMI result Body Mass Index 26.1 Appearing in no acute distress head is normocephalic atraumatic eyes pupils are PERRLA sclera is anicteric mouth throat mucous membranes are intact and moist neck is supple no lymphadenopathy, no JVD noted lung sounds are clear to auscultation heart regular rate rhythm, clear S1, S2 positive bowel sounds, abdomen is soft, nontender neuro patient is alert x3, no focal deficits, mild gait abnormality Results Labs 09/14/24 14:00 09/14/24 14:00 Labs: Laboratory Results - last 24 hr 09/14/24 09/14/24 09/14/24 13:57 14:00 17:05 MCV 80.6 MCH 26.1 L MCHC 32.4 RDW 14.2 Plt Count 299 MPV 10.6 Immature Gran % (Auto) 0.2 Neut % (Auto) 50.9 Lymph % (Auto) 36.4 [place] % (Auto) 9.3 Eos % (Auto) 2.1 Baso % (Auto) 1.1 Lymph # (Auto) 3.0 [place] # (Auto) 0.8 Eos # (Auto) 0.2 Baso # (Auto) 0.1 Abs Immat Gran (auto) 0.02 Absolute Neuts (auto) 4.2 Absolute Nucleated RBC 0.000 Nucleated RBC % (auto) 0.0 Hold Purple Top SEE NOTE PT 11.3 INR 1.0 APTT 35.2 Anion Gap 13 Estim Creat Clear Calc 40.9 Estimated GFR 46 Random Glucose 87 Calcium 9.7 Magnesium 2.0 Total Bilirubin 0.3 AST 20 ALT 14 Alkaline Phosphatase 47 Total Protein 7.7 Albumin 4.0 Urine Color Yellow Urine Appearance Turbid Urine pH 6.0 Ur Specific [place] 1.010 Urine Protein Negative Urine Glucose (UA) Negative Urine Ketones Negative Urine Blood Trace H Urine Nitrite Positive H Ur Leukocyte Esterase Large (3+) H Urine RBC 0-2 Urine WBC >50 H Ur Squamous Epith Cells 3-5 Urine Bacteria 4+ Hyaline Casts 0-2 Influenza Type A (PCR) NEGATIVE Influenza Type B (PCR) NEGATIVE RSV RNA Qual (PCR) NEGATIVE SARS-CoV-2 RNA (RT-PCR) NEGATIVE Assessment and Plan (1) Acute CVA (cerebrovascular accident): Status: Acute Plan 79-year-old woman admitted with an acute stroke Acute stroke Out of window for thrombolytics Acute infarction in the right thalamus measuring 8 mm on MRI Admit to [facility] [place] Stroke education Aspirin, statin Carotid Doppler Lipid panel PT/OT UTI Start Rocephin Follow up final culture DVT prophylaxis with heparin Full code Quality Stroke Does the patient have a stroke diagnosis?: No VTE Prior VTE?: No VTE Risk Level:: Medical - moderate - high VTE Device Contraindication: Treatment Not Indicated VTE Drug Contraindication: N/A - Med Ordered
[2024-09-14] MEDS: cefTRIAXone sodium 1 GM VIAL IVPUSH (18:19)
--- NOTE | 2024-09-14 18:21 | MHC.EDTECH ---
2 sets of blood cultures obtained and sent to lab
--- NOTE | 2024-09-14 18:50 | PHA.MEDREC ---
Addendum entered by Anthony Julian [facility] 09/14/24 18:58: Med rec checked by [facility] Original Note: Pharmacy Consult ? Medication Reconciliation Pharmacy has completed the medication reconciliation. Spoke to pt to confirm meds.
[2024-09-14] MEDS: Heparin Sodium,Porcine 5,000 UNIT/ML VIAL 5000 UNIT SUBCUT (19:26)
[2024-09-14] MEDS: Atorvastatin Calcium 40 MG TABLET PO (21:18)
[2024-09-14] MEDS: Melatonin 3 MG TABLET 6 MG PO (21:18)
[2024-09-15] VITALS (8 sets, daily range): BP systolic 126–158; BP diastolic 53–92; PULSE 62–80; RESP 14–20; TEMP 36.5–37.1; O2SAT 94–98; BMI 27.2
[2024-09-15] MEDS: 0.9 % Sodium Chloride Flush 3 ML SYRINGE IVFLUSH ×3 (01:02→17:40)
[2024-09-15 05:38] LABS: Hematocrit 37.2 % (37.0-47.0); Hemoglobin 11.8 g/dl (12.0-16.0); Mean Corpuscular HGB Conc 31.7 g/dl (31.0-35.0); Mean Corpuscular Hemoglobin 25.7 pg (27.0-33.0); Mean Corpuscular Volume 80.9 fL (80.0-98.0); Mean Platelet Volume 10.8 fL (9.4-12.3); Platelet Count 265 X10*3/uL (160-400); Red Cell Distribution Width 14.2 % (11.0-16.0); White Blood Count 8.7 X10*3/uL (4.8-10.8)
[2024-09-15 05:52] LABS: Anion Gap 12 (12-20); Blood Urea Nitrogen 24 mg/dL (9-16); Calcium 9.4 mg/dL (8.4-10.2); Carbon Dioxide 25 mmol/L (22-29); Chloride 107 mmol/L (96-108); Cholesterol 199 mg/dL (<200); Estimated Glomerular Filt Rate 56; Glucose Random 91 mg/dL (60-115); HDL Cholesterol 40 mg/dL (>40); LDL Cholesterol Calculated 133 mg/dL (<100); Potassium 4.3 mmol/L (3.3-5.1); Sodium 140 mmol/L (135-145); Triglycerides 131 mg/dL (<150)
[2024-09-15] MEDS: Escitalopram Oxalate 20 MG TABLET PO (08:34)
[2024-09-15] MEDS: Aspirin 81 MG TAB.CHEW PO (08:34)
[2024-09-15] MEDS: Omeprazole 20 MG CAPSULE.DR PO (08:35)
[2024-09-15] MEDS: Heparin Sodium,Porcine 5,000 UNIT/ML VIAL 5000 UNIT SUBCUT ×2 (08:35→18:41)
[2024-09-15] MEDS: Cholecalciferol (Vitamin D3) 25 MCG TABLET PO (08:35)
--- NOTE | 2024-09-15 10:08 | PM.NEUROCN ---
History of Present Illness Data of Consult Service Date: 09/15/24 Primary Care Provider: Fabiano Mckeon MD [facility] Reason for consult: Stroke 79-year-old woman presenting to the ER with complaints of feeling off balance and lip numbness. She reported approximately 2 days ago she was feeling off balance and was having mechanical falls at home with no loss of consciousness. She complain of being dizzy which was described as both unsteadiness and a sense of motion. This morning she was feeling better was still was not back to her normal self when walking. There was no change in her speech. No double vision. Review of Systems Review of Systems: No recent cold or flu-like illness, headache, or chest pain shortness breath or palpitation. [facility] Past Medical History Medical History Age-related osteoporosis without current pathological fracture Right leg pain Screening for breast cancer Overactive bladder Degenerative disc disease, lumbar Allergic rhinitis Mixed incontinence Hypercholesterolemia Vitamin D deficiency Family History Family History Father Diabetes Myocardial infarction Heart disease Mother Heart disease Chronic mental illness Stomach cancer Sister Esophageal cancer Brother Esophageal cancer Paternal Grandfather Heart disease Surgical History Surgical History Status post ablation of incompetent vein using laser (12/15/23) History of cataract surgery History of arthroscopy of left knee History of shoulder surgery History of hysterectomy History of cholecystectomy Social History Social History Housing: House Alcohol intake: current Alcohol intake frequency: holidays/special occasions only Comment: glass of wine once a month Patient Tobacco Use Status: Former Tobacco user Smoked in Last 30 Days: No e-Cigarette/Vaping Use: Never Used Second Hand Smoke Exposure: No Use of substances other than those prescribed or required for medical reasons: No Advance Directives: No Advance Directives Information Provided: No Do you have a plan to hurt others: No Plan Nutrition Risks: No Nutritional Risk service: No Current occupational status: retired Cognitive needs: No Hearing needs: No Vision needs: Yes Meds Allergies Allergy/AdvReac Type Severity Reaction Status Date / Time tramadol [TRAMADOL] Allergy Severe THROAT Verified 09/14/24 13:48 SWELLING morphine [MORPHINE] Allergy Intermediate JITTERY, Verified 09/14/24 13:48 pain nitrofurantoin Allergy Intermediate HIVES Verified 09/14/24 13:48 [From MACROBID] codeine [CODEINE] Allergy Unknown pain Verified 09/14/24 13:48 oxycodone [Percocet] Allergy Unknown pain Verified 09/14/24 13:48 Sulfa (Sulfonamide Allergy Unknown Nausea, Verified 09/14/24 13:48 Antibiotics) diarrhea mirabegron [From Myrbetriq] AdvReac Intermediate Dizziness Verified 09/14/24 13:48 sulfamethoxazole AdvReac Intermediate NAUSEA/DIAR Verified 09/14/24 13:48 [From BACTRIM] ZAHRAA trimethoprim [From BACTRIM] AdvReac Intermediate NAUSEA/DIAR Verified 09/14/24 13:48 ZAHRAA aspirin [ASPIRIN] AdvReac Mild GI UPSET - Verified 09/14/24 18:49 ABD PAIN, pain Propoxyphene HCl Allergy Unknown Unknown Uncoded 06/17/24 11:36 From DARVOCET-N 100 AdvReac Intermediate ABD PAIN - Uncoded 06/17/24 11:36 NAUSEA Active Medications: Current Medications Acetaminophen (Acetaminophen 325 Mg Tablet) 650 mg PO Q6H PRN PRN Reason: Pain, Mild 1-3,fever,headache Aspirin (Aspirin 81 Mg Tab.Chew) 81 mg PO DAILY [facility] Last Admin: 09/15/24 08:34 Dose: 81 mg Atorvastatin Calcium (Atorvastatin Calcium 40 Mg Tablet) 40 mg PO BEDTIME [facility] Last Admin: 09/14/24 21:18 Dose: 40 mg Calcium Carbonate (Calcium Carbonate 750 Mg Tab.Chew) 750 mg PO Q4H PRN PRN Reason: Heartburn Ceftriaxone Sodium (Ceftriaxone Sodium 1 Gm Vial) 1 gm IVPUSH Q24H [facility] Escitalopram Oxalate (Escitalopram Oxalate 20 Mg Tablet) 20 mg PO DAILY [facility] Last Admin: 09/15/24 08:34 Dose: 20 mg Heparin Sodium (Porcine) (Heparin Sodium,Porcine 5,000 Unit/Ml Vial) 5,000 unit SUBCUT Q12H [facility] Last Admin: 09/15/24 08:35 Dose: 5,000 unit Magnesium Hydroxide (Milk Of Magnesia 30 Ml Oral.Susp) 30 ml PO DAILY PRN PRN Reason: Constipation Melatonin (Melatonin 3 Mg Tablet) 6 mg PO BEDTIME PRN PRN Reason: Insomnia Last Admin: 09/14/24 21:18 Dose: 6 mg Omeprazole (Omeprazole 20 Mg Capsule.) 20 mg PO DAILY@0630 [facility] Last Admin: 09/15/24 08:35 Dose: 20 mg Ondansetron HCl (Ondansetron Hcl 4 Mg/2 Ml Vial) 4 mg IVPUSH Q8H PRN PRN Reason: Nausea and Vomiting Sodium Chloride (0.9 % Sodium Chloride Flush 3 Ml Syringe) 3 ml IVFLUSH QSHIFT [facility] Last Admin: 09/15/24 08:35 Dose: 3 ml Vitamin D (Cholecalciferol (Vitamin D3) 25 Mcg Tablet) 25 mcg PO DAILY [facility] Last Admin: 09/15/24 08:35 Dose: 25 mcg Home Medications ?Medication ?Instructions ?Recorded ?Confirmed ?Last Taken ?Type cholecalciferol (vitamin D3) 25 25 mcg PO DAILY 07/31/20 09/14/24 09/14/24 History mcg (1,000 unit) capsule Prevagen 1 tab PO DAILY 09/14/24 09/14/24 09/14/24 History estradiol 0.01% (0.1 mg/gram) 1 g vaginal TUFR@0900 09/14/24 09/14/24 Unknown History vaginal cream melatonin 3 mg tablet 3 mg PO BEDTIME 09/14/24 09/14/24 Unknown History Physical Exam Vital Signs: Vital Signs: Last Vital Signs Temp 98.2 F 09/15/24 08:37 Pulse 70 09/15/24 08:37 Resp 20 09/15/24 08:37 BP 137/56 L 09/15/24 08:37 Pulse Ox 98 09/15/24 08:37 O2 Del Method Room Air 09/15/24 08:37 BMI result Body Mass Index 26.1 Neuro: Other: She is alert and awake with normal spontaneity of speech fluency comprehension and affect. Face is symmetrical. Visual infante are full. Extraocular muscles were intact. There is mild left [id number] ataxia. There was no pronator drift. Deep tendon reflexes are trace to absent with flexor plantars. Speech is normal. Results Labs 09/15/24 05:12 09/15/24 05:12 Labs: Short CBC 09/14/24 09/15/24 Range/Units 14:00 05:12 WBC 8.2 8.7 (4.8-10.8) X10*3/uL Hgb 13.3 11.8 L (12.0-16.0) g/dl Hct 41.1 37.2 (37.0-47.0) % Plt Count 299 265 (160-400) X10*3/uL BMP 09/14/24 09/15/24 14:00 05:12 Sodium 141 140 Potassium 4.5 4.3 Chloride 106 107 Carbon Dioxide 27 25 BUN 22 H 24 H Creatinine 1.14 0.97 Calcium 9.7 9.4 Liver Function 09/14/24 Range/Units 14:00 Total Bilirubin 0.3 (0.0-1.0) mg/dL AST 20 (5-31) U/L ALT 14 (0-31) U/L Alkaline Phosphatase 47 (39-117) U/L Albumin 4.0 (3.5-5.0) g/dL Urine 09/14/24 Range/Units 17:05 Urine Color Yellow Urine Appearance Turbid Urine pH 6.0 (5.0-9.0) Ur Specific [place] 1.010 (1.005-1.025) Urine Protein Negative (Neg-Trace) mg/dL Urine Glucose (UA) Negative (Negative) mg/dL Noncontrast MRI of brain revealed a small right internal capsular acute ischemic stroke with mild chronic microvascular ischemic disease and mild atrophy. Carotid ultrasound revealed [id number] left internal carotid artery stenosis. EKG revealed sinus rhythm. Assessment and Plan (1) Acute CVA (cerebrovascular accident): Status: Acute 79 years old woman with small right internal capsular atherothrombotic acute ischemic infarct resulting in unsteadiness, mild hemiataxia, without any significant cognitive or brainstem dysfunction. Mainstay of management is anti-platelet therapy and I would recommend combination of Plavix 75 mg daily and aspirin 81 mg daily for 3 months, statin and blood pressure control followed by eliminating 1 anti-platelet agent after 3 months. Procedures Date of Service Date of Service: 09/15/24
--- NOTE | 2024-09-15 10:59 | HO.PM.IMPN ---
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 Review of Systems Review of Systems: Yes all other systems are reviewed and are negative Constitutional Constitutional: Denies chills and Denies fever(s) Physical Exam Vital Signs: Vital Signs: Last Vital Signs Temp 98.2 F 09/15/24 08:37 Pulse 69 09/15/24 10:48 Resp 14 09/15/24 10:48 BP 135/92 H 09/15/24 10:48 Pulse Ox 98 09/15/24 10:48 O2 Del Method Room Air 09/15/24 10:48 BMI result Body Mass Index 26.1 Const: General: cooperative, comfortable, no acute distress, alert and awake Nutritional Appearance: average body habitus Orientation/consciousness: patient oriented x3 Resp: Effort & Inspection: normal respiratory effort, able to speak in complete sentences, no respiratory distress and no use of accessory muscles Auscultation: clear to auscultation bilaterally Cardio: Rate: regular rate GI: Inspection: No distended Palpation (GI): Soft to palpation Neuro: Other: strength equal bilaterally. Tongue midline, speech clear General: patient oriented x3, moves all extremities and CN's II-XI intact bilaterally Extrem: General: Yes no pedal edema Objective Data Active Medications Acetaminophen (Acetaminophen 325 Mg Tablet) 650 mg PO Q6H PRN PRN Reason: Pain, Mild 1-3,fever,headache Aspirin (Aspirin 81 Mg Tab.Chew) 81 mg PO DAILY [facility] Last Admin: 09/15/24 08:34 Dose: 81 mg Documented By: NITHYA Atorvastatin Calcium (Atorvastatin Calcium 40 Mg Tablet) 40 mg PO BEDTIME [facility] Last Admin: 09/14/24 21:18 Dose: 40 mg Documented By: CRISTIAN Calcium Carbonate (Calcium Carbonate 750 Mg Tab.Chew) 750 mg PO Q4H PRN PRN Reason: Heartburn Ceftriaxone Sodium (Ceftriaxone Sodium 1 Gm Vial) 1 gm IVPUSH Q24H [facility] Escitalopram Oxalate (Escitalopram Oxalate 20 Mg Tablet) 20 mg PO DAILY [facility] Last Admin: 09/15/24 08:34 Dose: 20 mg Documented By: NITHYA Heparin Sodium (Porcine) (Heparin Sodium,Porcine 5,000 Unit/Ml Vial) 5,000 unit SUBCUT Q12H [facility] Last Admin: 09/15/24 08:35 Dose: 5,000 unit Documented By: NITHYA Magnesium Hydroxide (Milk Of Magnesia 30 Ml Oral.Susp) 30 ml PO DAILY PRN PRN Reason: Constipation Melatonin (Melatonin 3 Mg Tablet) 6 mg PO BEDTIME PRN PRN Reason: Insomnia Last Admin: 09/14/24 21:18 Dose: 6 mg Documented By: CRISTIAN Omeprazole (Omeprazole 20 Mg Capsule.Dr) 20 mg PO DAILY@0630 [facility] Last Admin: 09/15/24 08:35 Dose: 20 mg Documented By: NITHYA Ondansetron HCl (Ondansetron Hcl 4 Mg/2 Ml Vial) 4 mg IVPUSH Q8H PRN PRN Reason: Nausea and Vomiting Sodium Chloride (0.9 % Sodium Chloride Flush 3 Ml Syringe) 3 ml IVFLUSH QSHIFT [facility] Last Admin: 09/15/24 08:35 Dose: 3 ml Documented By: NITHYA Vitamin D (Cholecalciferol (Vitamin D3) 25 Mcg Tablet) 25 mcg PO DAILY [facility] Last Admin: 09/15/24 08:35 Dose: 25 mcg Documented By: NITHYA Labs 09/15/24 05:12 09/15/24 05:12 Labs: Laboratory Results - last 24 hr 09/14/24 09/14/24 09/14/24 13:57 14:00 17:05 MCV 80.6 MCH 26.1 L MCHC 32.4 RDW 14.2 Plt Count 299 MPV 10.6 Immature Gran % (Auto) 0.2 Neut % (Auto) 50.9 Lymph % (Auto) 36.4 [place] % (Auto) 9.3 Eos % (Auto) 2.1 Baso % (Auto) 1.1 Lymph # (Auto) 3.0 [place] # (Auto) 0.8 Eos # (Auto) 0.2 Baso # (Auto) 0.1 Abs Immat Gran (auto) 0.02 Absolute Neuts (auto) 4.2 Absolute Nucleated RBC 0.000 Nucleated RBC % (auto) 0.0 Hold Purple Top SEE NOTE PT 11.3 INR 1.0 APTT 35.2 Anion Gap 13 Estim Creat Clear Calc 40.9 Estimated GFR 46 Random Glucose 87 Calcium 9.7 Magnesium 2.0 Total Bilirubin 0.3 AST 20 ALT 14 Alkaline Phosphatase 47 Total Protein 7.7 Albumin 4.0 Triglycerides Cholesterol LDL Cholesterol, Calc HDL Cholesterol Urine Color Yellow Urine Appearance Turbid Urine pH 6.0 Ur Specific [place] 1.010 Urine Protein Negative Urine Glucose (UA) Negative Urine Ketones Negative Urine Blood Trace H Urine Nitrite Positive H Ur Leukocyte Esterase Large (3+) H Urine RBC 0-2 Urine WBC >50 H Ur Squamous Epith Cells 3-5 Urine Bacteria 4+ Hyaline Casts 0-2 Influenza Type A (PCR) NEGATIVE Influenza Type B (PCR) NEGATIVE RSV RNA Qual (PCR) NEGATIVE SARS-CoV-2 RNA (RT-PCR) NEGATIVE 09/15/24 05:12 MCV 80.9 MCH 25.7 L MCHC 31.7 RDW 14.2 Plt Count 265 MPV 10.8 Immature Gran % (Auto) Neut % (Auto) Lymph % (Auto) [place] % (Auto) Eos % (Auto) Baso % (Auto) Lymph # (Auto) [place] # (Auto) Eos # (Auto) Baso # (Auto) Abs Immat Gran (auto) Absolute Neuts (auto) Absolute Nucleated RBC 0.000 Nucleated RBC % (auto) 0.0 Hold Purple Top PT INR APTT Anion Gap 12 Estim Creat Clear Calc 48.0 Estimated GFR 56 Random Glucose 91 Calcium 9.4 Magnesium Total Bilirubin AST ALT Alkaline Phosphatase Total Protein Albumin Triglycerides 131 Cholesterol 199 LDL Cholesterol, Calc 133 H HDL Cholesterol 40 L Urine Color Urine Appearance Urine pH Ur Specific [place] Urine Protein Urine Glucose (UA) Urine Ketones Urine Blood Urine Nitrite Ur Leukocyte Esterase Urine RBC Urine WBC Ur Squamous Epith Cells Urine Bacteria Hyaline Casts Influenza Type A (PCR) Influenza Type B (PCR) RSV RNA Qual (PCR) SARS-CoV-2 RNA (RT-PCR) Assessment and Plan (1) Acute CVA (cerebrovascular accident): Status: Acute Plan This is a 79-year-old woman admitted with an acute stroke Acute stroke Out of window for thrombolytics Acute infarction in the right thalamus measuring 8 mm on MRI seen by neurology - rec statin, and DAPT for three months LDL 133 Carotid Doppler 50-79% stenosis left ICA - outpatient follow up PT/OT evaluation pending UTI No evidence of sepsis continue IV Rocephin Urine culture pending DVT prophylaxis with heparin Full code Requires ongoing inpatient stay for PT evaluation, safe disposition Quality Stroke Does the patient have a stroke diagnosis?: No VTE Prior VTE?: No VTE Risk Level:: Medical - moderate - high VTE Device Contraindication: Treatment Not Indicated VTE Drug Contraindication: N/A - Med Ordered
[2024-09-15] MEDS: Clopidogrel Bisulfate 75 MG TABLET PO (11:59)
--- NOTE | 2024-09-15 12:54 | MHC.CM.PN ---
PT REPORTS SHE LIVES ALONE AND IS FULLY INDEPENDENT WITH CARE SHE HAS NO DME AND NO SERVICES COPY OF HCP REQUESTED PCP: KATELYN SALVADOR IMM DELIVERED PTS PREFERRED DCP: HOME NO SERVICES FAMILY TO TRANSPORT
[2024-09-15] MEDS: cefTRIAXone sodium 1 GM VIAL IVPUSH (17:34)
[2024-09-15] MEDS: Atorvastatin Calcium 40 MG TABLET PO (20:26)
[2024-09-15] MEDS: Melatonin 3 MG TABLET 6 MG PO (22:56)
[2024-09-16] VITALS (8 sets, daily range): BP systolic 104–150; BP diastolic 58–75; PULSE 62–78; RESP 20; TEMP 36.2–36.9; O2SAT 93–96
[2024-09-16] MEDS: 0.9 % Sodium Chloride Flush 3 ML SYRINGE IVFLUSH ×2 (00:04→08:58)
[2024-09-16] MEDS: Pantoprazole Sodium 20 MG TABLET.DR 40 MG PO (06:46)
--- NOTE | 2024-09-16 07:00 | CA_ITS ---
Transthoracic Echocardiogram Patient (Last, First, Middle): Adry Glover L Gender: Female Date of : 1945 Age: 79 Procedure Date: 09/16/2024 Procedure Type: Transthoracic Echocardiogram Location: [facility] Height: 165. 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 The calculated ejection fraction is 68% by biplane method. - No obvious valvular pathology seen on this study. Findings Left Ventricle Normal left ventricular cavity size. There is normal left ventricular wall thickness. The left ventricular systolic function is normal. The calculated ejection fraction is 68% by biplane method. There is no evidence of regional wall motion abnormalities. Diastolic function is normal for age. Right Ventricle Mildly increased right ventricular cavity size. There is normal right ventricular systolic function. Atria Both atria are normal in size. Aortic Valve There is mild calcification of the aortic valve. There is no aortic valve stenosis. There is no aortic valve regurgitation. Mitral Valve The mitral valve appears normal. There is no mitral valve regurgitation. There is no mitral valve stenosis. Pulmonic Valve The pulmonic valve is likely normal. Tricuspid Valve There is trace tricuspid valve regurgitation. There is no evidence of pulmonary hypertension. Great Vessels The asc aorta and aortic arch are normal in size. Venous The inferior vena cava is normal in size and collapses greater than 50% with inspiration. Pericardium/Pleural There is no evidence of pericardial effusion. Prior Study Comparison No significant change compared to prior study dated: 11/08/2018. Recommendations, Care & Conclusions No obvious valvular pathology seen on this study. Measurements 2D Linear Measurements IVSd: 0.71 0.6-0.9/0.6-1.0 cm LVIDd: 3.99 3.9-5.3/4.2-5.9 cm LVIDd Index: 2.20 2.4-3.2/2.2-3.1 cm/m2 LVIDs: 1.74 2.0-3.6 cm LVPWd: 0.96 0.7-1.1 cm LA Diam: 3.50 2.7-3.8/3.0-4.0 cm LAIDs Index: 1.93 1.5-2.3 cm/m2 LV Mass: 122.31 67-162/88-224 g LV Mass Index: 67.58 43-95/49-115 g/m2 LVOT Diam: 1.90 3.0+(-)1.3 cm 2D Systolic Function EF 4C: 74.00 >55% EF 2C: 58.30 >55% EF BiP: 68.30 >55% Mitral Valve MV Pk E: 0.65 MV PK A: 0.75 MV Decel Time: 308.00 E/A: 0.90 E'Lateral: 8.92 E'Medial: 6.64 E/E' Med: 9.80 E/E' Lat: 7.30 PHT: 90.00 MVA PHT: 2.44 Decel Cotton: 2.11 Aortic Valve AoV Pk Mahad: 1.26 AoV Mn Mahad: 0.89 AoV VTI: 0.27 AoV Pk Grad: 6.00 Aov Mn Grad: 3.00 ALEXANDRE Cont.VTI: 1.84 LVOT LVOT Pk Mahad: 0.79 LVOT Mn Mahad: 0.59 LVOT VTI: 0.18 LVOT Pk Grad: 2.00 LVOT Mn Grad: 1.00 LVOT Diam: 1.90 LVOT Area: 2.84 Diastolic Function MV Pk E: 0.65 MV Pk A: 0.75 E/A: 0.90 E'Medial: 6.64 E/E' Med: 9.80 E' Laterial: 8.92 E/E' Lat: 7.30 Right Ventricle TAPSE (mm): 20.00 TVS' Mahad: 11.00 Tricuspid Valve TR Pk Mahad: 2.11 TR Pk Grad: 18.00 RA Press: 3.00 RVSP: 21.00 Great Vessels Aorta Sinus of Valsalva: 3.70 2.0-3.5 cm Ao Asc: 3.50 2.1-3.4 cm Ao Arch: 3.00 Pulmonary Valve PV Pk Mahad: 0.76 Peak PV Grad: 2.00 Updated in Other Vendor System with Status of Final Dave Waite MD electronically signed on 09/16/2024 11:02:19 AM with status of Final
[2024-09-16] MEDS: Heparin Sodium,Porcine 5,000 UNIT/ML VIAL 5000 UNIT SUBCUT (08:58)
[2024-09-16] MEDS: Aspirin 81 MG TAB.CHEW PO (08:58)
[2024-09-16] MEDS: Escitalopram Oxalate 20 MG TABLET PO (08:58)
[2024-09-16] MEDS: Cholecalciferol (Vitamin D3) 25 MCG TABLET PO (08:58)
[2024-09-16] MEDS: Clopidogrel Bisulfate 75 MG TABLET PO (08:58)
--- NOTE | 2024-09-16 10:18 | PM.DS ---
DS: Providers Provider Date of Service: 09/16/24 Date of admission: 09/14/24 18:13 Date of discharge: 09/16/24 Primary care physician: Fabiano Mckeon MD Consults: 09/14/24 18:13 Consult to Neurology Routine Consulting Provider: [facility] Reason for consultation: stroke DS: Diagnosis Discharge Diagnosis (1) Acute CVA (cerebrovascular accident): Status: Acute DS: Summary Hospital Course Hospital Course: 79-year-old woman presenting to the ER with complaints of feeling off balance and lip numbness. She reported approximately 2 days ago she was feeling off balance and was having mechanical falls at home with no loss of consciousness. One of the falls she did hit her head but without injury. 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 Her daughter told her that she needed to come to the ER to be evaluated. Patient denied chest pain, shortness breath, nausea, vomiting, diarrhea, recent travel, sick contacts. Brain MRI showed acute infarction in the right thalamus measuring 8 mm. Labs all within acceptable limits, UA positive but patient does report chronic urinary tract infections. At this time patient is able to ambulate with some mild gait abnormality, she is communicating properly. Plan will be to admit patient for further management and treatment of acute stroke. Acute stroke Out of window for thrombolytics Acute infarction in the right thalamus measuring 8 mm on MRI seen by neurology - rec statin, and DAPT for three months, then switch to just one after 3 months LDL 133 Carotid Doppler 50-79% stenosis left ICA - outpatient follow up with vascular PT/OT rec home with no services UTI No evidence of sepsis treated with IV Rocephin ceftin o/p Time Attestation Discharge Coordination Time (in mins): 42 Quality: Safe Use of Opioids Does Pt have an Active Cancer Diagnosis on the Problem List?: No Quality: Stroke Does the patient have a stroke diagnosis?: No Physical Exam Vital Signs: Vital Signs: Last Vital Signs Temp 98.0 F 09/16/24 07:41 Pulse 71 09/16/24 08:43 Resp 20 09/16/24 07:41 BP 150/75 H 09/16/24 08:43 Pulse Ox 93 09/16/24 07:41 O2 Del Method Room Air 09/16/24 07:41 BMI result Body Mass Index 27.2 Appearing in no acute distress head is normocephalic atraumatic eyes pupils are PERRLA sclera is anicteric mouth throat mucous membranes are intact and moist neck is supple no lymphadenopathy, no JVD noted lung sounds are clear to auscultation heart regular rate rhythm, clear S1, S2 positive bowel sounds, abdomen is soft, nontender neuro patient is alert x3, no focal deficits DS: Data Data Completed and Pending Labs on day of discharge: Preliminary micro results at discharge 09/14/24 17:05 Urine Culture - Preliminary Urine clean catch - Clean Catch Midstream Gram negative jesika 09/14/24 18:19 Blood Culture - Preliminary Blood - Venous No growth after 24 hours. 09/14/24 18:19 Blood Culture - Preliminary Blood - Venous No growth after 24 hours. Discharge Plan Discharge Anticipated Discharge Date/Time: 09/16/24 10:15 Patient Disposition: Home, Self-Care Discharge Diagnosis: Acute stroke Referrals: Anthony Castellanos MD [Physician] - None Po,Fabiano Campos MD [Primary Care Provider] - 1 Week Discharge Medications: New atorvastatin 40 mg Tablet 40 mg PO BEDTIME Qty: 90 0RF clopidogrel 75 mg Tablet 75 mg PO DAILY Qty: 90 0RF aspirin 81 mg Tablet,Chewable 81 mg PO DAILY Qty: 90 0RF cefuroxime axetil 500 mg tablet 500 mg PO BID Qty: 8 0RF Continued estradiol 0.5 mg tablet 0.5 mg PO DAILY Qty: 90 0RF citalopram 40 mg tablet 40 mg PO DAILY Qty: 90 0RF estradiol 0.01 % (0.1 mg/gram) cream 1 g vaginal TUFR@0900 melatonin 3 mg Tablet 3 mg PO BEDTIME Prevagen 1 tab PO DAILY cholecalciferol (vitamin D3) 25 mcg (1,000 unit) capsule 25 mcg PO DAILY Discharge Orders: Discharge Order (Routine); Ordered 09/16/24 Ordered By: Leona Leung Diet: Advance to usual diet Activity on Discharge: As tolerated Stand Alone Forms: Patient Portal Discharge page Print Language: Serbian Care Plan Goals: Take aspirin and Plavix for 3 months then continue aspirin only after that Drink plenty of fluids Follow up with vascular surgery Health Concerns: Acute stroke Plan of Treatment: Follow-up with primary care provider as needed Take all medications as prescribed Assessment: See discharge summary
--- NOTE | 2024-09-16 11:07 | MHC.STROKE ---
Met with patient and brother in room 482. Pt awake, alert and oriented x 4. Pt was sitting up in bed watching TV and conversing with her brother. Pt continues to c/o mild dizziness. Reports that she was feeling dizzy sitting in the recliner after working with PT. Stroke Education reviewed. Pamphlet provided. Risk factors discussed including medical history, medications, diet, exercise, social behaviors. All questions answered. Pt was seen over the weekend by Dr. Latif. Will continue to assist as needed.
--- NOTE | 2024-09-16 11:16 | P.PNIM_ITS ---
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 Dizziness Review of Systems Review of Systems: Yes all other systems are reviewed and are negative Constitutional Constitutional: Denies chills and Denies fever(s) Physical Exam 2 Vital Signs: Vital Signs: Last Vital Signs Temp 97.1 F 09/16/24 11:03 Pulse 62 09/16/24 11:03 Resp 20 09/16/24 11:03 BP 131/63 09/16/24 11:03 Pulse Ox 95 09/16/24 11:03 O2 Del Method Room Air 09/16/24 11:03 BMI result Body Mass Index 27.2 Appearing in no acute distress lung sounds are clear to auscultation heart regular rate rhythm, clear S1, S2 positive bowel sounds, abdomen is soft, nontender neuro patient is alert x3, no focal deficits Objective Data Active Medications Acetaminophen (Acetaminophen 325 Mg Tablet) 650 mg PO Q6H PRN PRN Reason: Pain, Mild 1-3,fever,headache Aspirin (Aspirin 81 Mg Tab.Chew) 81 mg PO DAILY [facility] Last Admin: 09/16/24 08:58 Dose: 81 mg Documented By: MORRO Atorvastatin Calcium (Atorvastatin Calcium 40 Mg Tablet) 40 mg PO BEDTIME [facility] Last Admin: 09/15/24 20:26 Dose: 40 mg Documented By: PAT Calcium Carbonate (Calcium Carbonate 750 Mg Tab.Chew) 750 mg PO Q4H PRN PRN Reason: Heartburn Ceftriaxone Sodium (Ceftriaxone Sodium 1 Gm Vial) 1 gm IVPUSH Q24H [facility] Last Admin: 09/15/24 17:34 Dose: 1 gm Documented By: ZACHERY Clopidogrel Bisulfate (Clopidogrel Bisulfate 75 Mg Tablet) 75 mg PO DAILY [facility] Last Admin: 09/16/24 08:58 Dose: 75 mg Documented By: MORRO Escitalopram Oxalate (Escitalopram Oxalate 20 Mg Tablet) 20 mg PO DAILY [facility] Last Admin: 09/16/24 08:58 Dose: 20 mg Documented By: MORRO Heparin Sodium (Porcine) (Heparin Sodium,Porcine 5,000 Unit/Ml Vial) 5,000 unit SUBCUT Q12H [facility] Last Admin: 09/16/24 08:58 Dose: 5,000 unit Documented By: MORRO Lactated Ringer's (Lr) 1,000 mls @ 500 mls/hr IVCONT .Q2H [facility] Magnesium Hydroxide (Milk Of Magnesia 30 Ml Oral.Susp) 30 ml PO DAILY PRN PRN Reason: Constipation Melatonin (Melatonin 3 Mg Tablet) 6 mg PO BEDTIME PRN PRN Reason: Insomnia Last Admin: 09/15/24 22:56 Dose: 6 mg Documented By: PAT Ondansetron HCl (Ondansetron Hcl 4 Mg/2 Ml Vial) 4 mg IVPUSH Q8H PRN PRN Reason: Nausea and Vomiting Pantoprazole Sodium (Pantoprazole Sodium 20 Mg Tablet.) 40 mg PO DAILY@0630 [facility] Last Admin: 09/16/24 06:46 Dose: 40 mg Documented By: GLORIA Comments: Pyxis dispense 20mg tablets x 2 instead of single 40mg tab Sodium Chloride (0.9 % Sodium Chloride Flush 3 Ml Syringe) 3 ml IVFLUSH QSHIFT [facility] Last Admin: 09/16/24 08:58 Dose: 3 ml Documented By: MORRO Vitamin D (Cholecalciferol (Vitamin D3) 25 Mcg Tablet) 25 mcg PO DAILY [facility] Last Admin: 09/16/24 08:58 Dose: 25 mcg Documented By: MORRO Labs 09/15/24 05:12 09/15/24 05:12 Microbiology Microbiology Results: Microbiology 09/14/24 17:05 Urine Culture - Preliminary Urine clean catch - Clean Catch Midstream Gram negative jesika 09/14/24 18:19 Blood Culture - Preliminary Blood - Venous No growth after 24 hours. 09/14/24 18:19 Blood Culture - Preliminary Blood - Venous No growth after 24 hours. 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
[2024-09-16] MEDS: Lactated Ringers 1,000 ML 500 ML IVCONT (11:59)
--- NOTE | 2024-09-16 13:45 | P.CONGS_ITS ---
<Statement entered by Anthony Castellanos MD - 09/17/24 09:04> Will need CTA of carotid History of Present Illness Consult details Consult date: 09/16/24 Narrative: We are consulted on Adry, for concerns of carotid stenosis, found on carotid ultrasound. 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 She was found to have an acute infarct in the right thalamus, measuring 8 mm. She states she is feeling well today and would like to get home. We are consulted due to findings on carotid Doppler ultrasound study, which revealed 50-79% stenosis of the left ICA. The patient currently states she remains asymptomatic. She denies any weakness. Review of Systems 2 Constitutional: Constitutional: Reports as per HPI and Denies weakness ENT: Reports Normal hearing present and Denies dizziness Cardiovascular: Cardiovascular: Reports as per HPI, Denies chest pain, Denies chest pain at rest, Denies chest pain with activity, Denies dyspnea and Denies dyspnea on exertion Respiratory: Respiratory: Reports as per HPI, Denies cough, Denies dyspnea and Denies dyspnea on exertion Gastrointestinal: Gastrointestinal: Reports as per HPI, Denies abdominal pain, Denies nausea and Denies vomiting Musculoskeletal: Musculoskeletal: Denies numbness Integumentary/Breasts: Skin/Breast: Reports as per HPI, Denies erythema and Denies wounds Neurologic: Reports Normal hearing present, Denies dizziness, Denies numbness, Denies Sensory deficit (Neuro) and Denies weakness Psychiatric: Psychiatric: Reports no additional psychiatric complaints Endocrine: Endocrine: Reports no additional endocrine complaints [facility] Past Medical History Medical History Age-related osteoporosis without current pathological fracture Right leg pain Screening for breast cancer Overactive bladder Degenerative disc disease, lumbar Allergic rhinitis Mixed incontinence Hypercholesterolemia Vitamin D deficiency Family History Family History Father Diabetes Myocardial infarction Heart disease Mother Heart disease Chronic mental illness Stomach cancer Sister Esophageal cancer Brother Esophageal cancer Paternal Grandfather Heart disease Surgical History Surgical History Status post ablation of incompetent vein using laser (12/15/23) History of cataract surgery History of arthroscopy of left knee History of shoulder surgery History of hysterectomy History of cholecystectomy Social History Social History Household Members: None Household Members Other:: neighbors check on her on a regular basis Housing: Other Housing Other:: two family Alcohol intake: current Alcohol intake frequency: holidays/special occasions only Comment: glass of wine once a month Patient Tobacco Use Status: Former Tobacco user e-Cigarette/Vaping Use: Never Used Second Hand Smoke Exposure: No service: No Current occupational status: retired Cognitive needs: No Hearing needs: No Vision needs: Yes Meds Allergies Allergy/AdvReac Type Severity Reaction Status Date / Time tramadol [TRAMADOL] Allergy Severe THROAT Verified 09/14/24 13:48 SWELLING morphine [MORPHINE] Allergy Intermediate JITTERY, Verified 09/14/24 13:48 pain nitrofurantoin Allergy Intermediate HIVES Verified 09/14/24 13:48 [From MACROBID] codeine [CODEINE] Allergy Unknown pain Verified 09/14/24 13:48 oxycodone [Percocet] Allergy Unknown pain Verified 09/14/24 13:48 Sulfa (Sulfonamide Allergy Unknown Nausea, Verified 09/14/24 13:48 Antibiotics) diarrhea mirabegron [From Myrbetriq] AdvReac Intermediate Dizziness Verified 09/14/24 13:48 sulfamethoxazole AdvReac Intermediate NAUSEA/DIAR Verified 09/14/24 13:48 [From BACTRIM] ZAHRAA trimethoprim [From BACTRIM] AdvReac Intermediate NAUSEA/DIAR Verified 09/14/24 13:48 ZAHRAA aspirin [ASPIRIN] AdvReac Mild GI UPSET - Verified 09/14/24 18:49 ABD PAIN, pain Propoxyphene HCl Allergy Unknown Unknown Uncoded 06/17/24 11:36 From DARVOCET-N 100 AdvReac Intermediate ABD PAIN - Uncoded 06/17/24 11:36 NAUSEA Active Medications: Current Medications Acetaminophen (Acetaminophen 325 Mg Tablet) 650 mg PO Q6H PRN PRN Reason: Pain, Mild 1-3,fever,headache Aspirin (Aspirin 81 Mg Tab.Chew) 81 mg PO DAILY [facility] Last Admin: 09/16/24 08:58 Dose: 81 mg Atorvastatin Calcium (Atorvastatin Calcium 40 Mg Tablet) 40 mg PO BEDTIME [facility] Last Admin: 09/15/24 20:26 Dose: 40 mg Calcium Carbonate (Calcium Carbonate 750 Mg Tab.Chew) 750 mg PO Q4H PRN PRN Reason: Heartburn Ceftriaxone Sodium (Ceftriaxone Sodium 1 Gm Vial) 1 gm IVPUSH Q24H [facility] Last Admin: 09/15/24 17:34 Dose: 1 gm Clopidogrel Bisulfate (Clopidogrel Bisulfate 75 Mg Tablet) 75 mg PO DAILY [facility] Last Admin: 09/16/24 08:58 Dose: 75 mg Escitalopram Oxalate (Escitalopram Oxalate 20 Mg Tablet) 20 mg PO DAILY [facility] Last Admin: 09/16/24 08:58 Dose: 20 mg Heparin Sodium (Porcine) (Heparin Sodium,Porcine 5,000 Unit/Ml Vial) 5,000 unit SUBCUT Q12H [facility] Last Admin: 09/16/24 08:58 Dose: 5,000 unit Lactated Ringer's (Lr) 1,000 mls @ 500 mls/hr IVCONT .Q2H [facility] Last Admin: 09/16/24 11:59 Dose: 500 mls/hr Magnesium Hydroxide (Milk Of Magnesia 30 Ml Oral.Susp) 30 ml PO DAILY PRN PRN Reason: Constipation Melatonin (Melatonin 3 Mg Tablet) 6 mg PO BEDTIME PRN PRN Reason: Insomnia Last Admin: 09/15/24 22:56 Dose: 6 mg Ondansetron HCl (Ondansetron Hcl 4 Mg/2 Ml Vial) 4 mg IVPUSH Q8H PRN PRN Reason: Nausea and Vomiting Pantoprazole Sodium (Pantoprazole Sodium 20 Mg Tablet.Dr) 40 mg PO DAILY@0630 [facility] Last Admin: 09/16/24 06:46 Dose: 40 mg Sodium Chloride (0.9 % Sodium Chloride Flush 3 Ml Syringe) 3 ml IVFLUSH QSHIFT [facility] Last Admin: 09/16/24 08:58 Dose: 3 ml Vitamin D (Cholecalciferol (Vitamin D3) 25 Mcg Tablet) 25 mcg PO DAILY [facility] Last Admin: 09/16/24 08:58 Dose: 25 mcg Home Medications ?Medication ?Instructions ?Recorded ?Confirmed ?Last Taken ?Type cholecalciferol (vitamin D3) 25 25 mcg PO DAILY 07/31/20 09/14/24 09/14/24 History mcg (1,000 unit) capsule Prevagen 1 tab PO DAILY 09/14/24 09/14/24 09/14/24 History estradiol 0.01% (0.1 mg/gram) 1 g vaginal TUFR@0900 09/14/24 09/14/24 Unknown History vaginal cream melatonin 3 mg tablet 3 mg PO BEDTIME 09/14/24 09/14/24 Unknown History Physical Exam 2 Vital Signs: Vital Signs: Last Vital Signs Temp 97.1 F 09/16/24 11:03 Pulse 75 09/16/24 11:22 Resp 20 09/16/24 11:03 BP 104/64 09/16/24 11:22 Pulse Ox 95 09/16/24 11:03 O2 Del Method Room Air 09/16/24 11:03 BMI result Body Mass Index 27.2 Const: General: comfortable and no acute distress O rientation/consciousness: patient oriented x3 HEENT: Ears: hearing grossly normal bilaterally Resp: Effort & Inspection: normal respiratory effort and able to speak in complete sentences Auscultation: clear to auscultation bilaterally Cardio: Rate: regular rate Rhythm: regular rhythm Heart sounds: S1 normal heart sound present and S2 normal heart sound present Bruits: no abdominal aortic bruits, no carotid bruits, no femoral bruits and no renal bruits GI: Palpation (GI): No Abdominal aortic bruit present Neuro: General: patient oriented x3 Cranial nerves: Yes Normal hearing present Sensory Exam: No Sensory deficit (Neuro) Results Labs 09/15/24 05:12 09/15/24 05:12 Labs: Urine 09/14/24 Range/Units 17:05 Urine Color Yellow Urine Appearance Turbid Urine pH 6.0 (5.0-9.0) Ur Specific [place] 1.010 (1.005-1.025) Urine Protein Negative (Neg-Trace) mg/dL Urine Glucose (UA) Negative (Negative) mg/dL All other labs normal. Assessment and Plan (1) Left carotid stenosis: Status: Acute Plan We are consulted on Adry, a very pleasant 79-year-old female patient, for concerns of findings on carotid Doppler ultrasound of left internal carotid artery stenosis of 50-79%. She is status post CVA of right thalamus. She currently states she remains asymptomatic. Neurology has recommended Plavix, aspirin, and a statin with blood pressure control; they also mentioned that 1 antiplatelet can be discontinued after 3 months. Due to the findings of carotid artery stenosis, I reached out to the hospitalist to have them order a CT angio of the neck for further investigation of the stenosis. I had a lengthy discussion with the patient that this would be very important have done prior to her leaving the hospital, to determine whether we need to fix this while she was inpatient or whether we can follow up with her on an outpatient basis. We will continue to monitor and await for the results of the CTA of the neck. Thank you for the consult. If there are any questions or concerns, please do not hesitate to reach out to us. Procedures Date of Service Date of Service: 09/16/24
--- NOTE | 2024-09-16 14:37 | MHC.CM.PN ---
PT CLEARED TO DC HOME TODAY WITH NO SERVICES VIA PRIVATE TRANSPORT
== END 2024-09-16 15:30 | disposition home or self-care (01) | DRG 65 ==
LOC: HO.ED 16:57 → HO.EDOVER 18:18 → HO.IMC 09-15 12:08
PROVIDERS: Physician Assistant Medical; Admitting Provider Nurse Practitioner Acute Care; Emergency Provider Emergency Medicine; PCP Internal Medicine; Visit Provider Nurse Practitioner Acute Care
DX: I63.9 Cerebral infarction, unspecified (principal); N39.0 Urinary tract infection, site not specified; R29.701 NIHSS score 1; R27.0 Ataxia, unspecified; I65.22 Occlusion and stenosis of left carotid artery; I95.1 Orthostatic hypotension; Z20.822 Contact with and (suspected) exposure to COVID-19; Z87.891 Personal history of nicotine dependence; Z79.899 Other long term (current) drug therapy
CPT/HCPCS: 0241U; 36415; 70450; 70486; 70551; 72125; 80048; 80053; 80061; 81001; 83735; 84484; 85025; 85027; 85610; 85730; 87040; 87086; 87088; 87186; 93005; 93306; 93880; 97161; 97165; 99285; J0696; J1644; J2060; J7120; Q9957

== ENCOUNTER → 2024-09-14 13:46 | Outpatient (BNV) | payer MEDICARE, MEDICAID, SELFPAY | PROVIDERS: Emergency Provider Emergency Medicine; PCP Internal Medicine; Visit Provider Radiology Diagnostic Radiology | DX: I63.531 Cerebral infarction due to unspecified occlusion or stenosis of right posterior cerebral artery (principal); M43.12 Spondylolisthesis, cervical region; S02.2XXA Fracture of nasal bones, initial encounter for closed fracture; S09.90XA Unspecified injury of head, initial encounter | CPT/HCPCS: 70450; 70486; 70551; 72125 ==

== ENCOUNTER → 2024-09-14 13:46 | Outpatient (BNV) | payer MEDICARE, MEDICAID, SELFPAY | PROVIDERS: Admitting Provider Nurse Practitioner Acute Care; Emergency Provider Emergency Medicine; PCP Internal Medicine; Visit Provider Internal Medicine | DX: R94.31 Abnormal electrocardiogram [ECG] [EKG] (principal) | CPT/HCPCS: 93010 ==

== ENCOUNTER 2024-09-14 18:13 | Outpatient (BNV) | payer MEDICARE, MEDICAID, SELFPAY | END 2024-09-15 08:06 | PROVIDERS: Admitting Provider Nurse Practitioner Acute Care; Emergency Provider Emergency Medicine; PCP Internal Medicine; Visit Provider Radiology Diagnostic Radiology | DX: I65.22 Occlusion and stenosis of left carotid artery (principal) | CPT/HCPCS: 93880 ==

== ENCOUNTER 2024-09-14 18:13 | Outpatient (BNV) | payer MEDICARE, MEDICAID, SELFPAY | END 2024-09-16 07:00 | PROVIDERS: Admitting Provider Nurse Practitioner Acute Care; Emergency Provider Emergency Medicine; PCP Internal Medicine; Visit Provider Internal Medicine | DX: I35.8 Other nonrheumatic aortic valve disorders (principal); I63.9 Cerebral infarction, unspecified | CPT/HCPCS: 93306 ==

== ENCOUNTER → 2024-09-14 18:13 | Outpatient (BNV) | payer MEDICARE, MEDICAID, SELFPAY | PROVIDERS: Admitting Provider Nurse Practitioner Acute Care; Emergency Provider Emergency Medicine; PCP Internal Medicine; Visit Provider Psychiatry & Neurology Neurology | DX: I63.9 Cerebral infarction, unspecified (principal) | CPT/HCPCS: 99222 ==

== ENCOUNTER → 2024-09-14 18:13 | Outpatient (BNV) | payer MEDICARE, MEDICAID, SELFPAY | PROVIDERS: Admitting Provider Nurse Practitioner Acute Care; Emergency Provider Emergency Medicine; PCP Internal Medicine; Visit Provider Physician Assistant Surgical | DX: I65.22 Occlusion and stenosis of left carotid artery (principal) | CPT/HCPCS: 99222 ==

== ENCOUNTER → 2024-09-14 18:13 | Outpatient (BNV) | payer MEDICARE, MEDICAID, SELFPAY | PROVIDERS: Admitting Provider Nurse Practitioner Acute Care; Emergency Provider Emergency Medicine; PCP Internal Medicine; Visit Provider Nurse Practitioner Acute Care | DX: I63.9 Cerebral infarction, unspecified (principal) | CPT/HCPCS: 99223; 99232 ==

== ENCOUNTER 2024-09-23 11:28 | Outpatient (AMB) | payer MEDICARE, MEDICAID, SELFPAY ==
[2024-09-23 11:34] VITALS: BP 112/68; PULSE 77; O2SAT 97; BMI 25.7
--- NOTE | 2024-09-23 11:34 | A.OFFPC_ITS ---
Vital Signs 09/23/24 11:34 Height 5 ft 5 in Weight 154 lb 3 oz BMI 25.7 BP 112/68 Blood Pressure Location Lt brachial Position Sitting Pulse 77 Pulse Source Pulse Oximeter Pulse Oximetry (%) 97 Oxygen Delivery Method Room Air Intake Visit Reasons: [facility] 09/16 Stroke Enterprise Resource Planner Required: No Accompanied by: daughter-Hiwot Allergies tramadol [TRAMADOL] Allergy (Severe, Verified 09/23/24 11:49) THROAT SWELLING morphine [MORPHINE] Allergy (Intermediate, Verified 09/23/24 11:49) JITTERY, pain nitrofurantoin [From MACROBID] Allergy (Intermediate, Verified 09/23/24 11:49) HIVES codeine [CODEINE] Allergy (Unknown, Verified 09/23/24 11:49) pain oxycodone [Percocet] Allergy (Unknown, Verified 09/23/24 11:49) pain Sulfa (Sulfonamide Antibiotics) Allergy (Unknown, Verified 09/23/24 11:49) Nausea, diarrhea mirabegron [From Myrbetriq] Adverse Reaction (Intermediate, Verified 09/23/24 11:49) Dizziness sulfamethoxazole [From BACTRIM] Adverse Reaction (Intermediate, Verified 09/23/24 11:49) NAUSEA/DIARRHEA trimethoprim [From BACTRIM] Adverse Reaction (Intermediate, Verified 09/23/24 11:49) NAUSEA/DIARRHEA aspirin [ASPIRIN] Adverse Reaction (Mild, Verified 09/23/24 11:49) GI UPSET - ABD PAIN, pain Propoxyphene HCl Allergy (Unknown, Uncoded 09/23/24 11:49) Unknown From DARVOCET-N 100 Adverse Reaction (Intermediate, Uncoded 09/23/24 11:49) ABD PAIN - NAUSEA Medication List - Last Reconciled 09/23/24 by Lissett Ahmadi PA-C aspirin 81 mg PO DAILY atorvastatin 40 mg PO BEDTIME cefuroxime axetil 500 mg PO BID cholecalciferol (vitamin D3) 25 mcg PO DAILY citalopram 40 mg PO DAILY clopidogrel 75 mg PO DAILY estradiol 0.01%(0.1mg/gram) 1 g vaginal TUFR@0900 estradiol 0.5 mg PO DAILY melatonin 3 mg PO BEDTIME [Prevagen 1 tab PO DAILY] Tobacco use date assessed: 09/23/24 Fall risk assessment: No Falls in past year Last assessed Fall Risk: 09/23/24 Dental Screening Dental Screen Date: 09/23/24 Did you have a dental visit in the last 12 months?: Yes Did you have a dental problem in the last 6 months where you did not have access to dental care?: No Was dental information given to patient?: Patient has dentist HPI TCM [facility] 09/16 Stroke HPI Details 79-year-old female with past medical his tory of hypercholesterolemia, impaired glucose tolerance, peripheral vascular disease and generalized anxiety disorder last seen 05/2024 coming in for hospital discharge follow up. In review of the notes, patient was seen in [facility] 09/14/2024 with complaints of feeling off balance and lip numbness brain MRI showed acute infarction of the right thalamus measuring 8 mm admitted for further evaluation. Patient was seen by Neurology while admitted recommending statin and dual antiplatelet therapy for 3 months and switching to monotherapy after 3 months. Carotid Doppler showing 50- 79% stenosis of the left ICA recommending outpatient follow up with vascular. Patient was discharged home to 09/16/2024.? Presenting with post-stroke management care. She had dizziness and imbalance starting and worsening by the weekend, leading to admission for a diagnosed cerebrovascular accident (CVA). 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 Multiple falls suggested imbalance associated with stroke onset, although specific head trauma was not recalled. Absent of sinus or facial symptoms, no ear pain, with historical balancing blood pressure, but escalated cholesterol control requirements evident post-stroke. Scheduled for vascular consultation to evaluate left-side carotid narrowing. Relates a substantial previous smoking background, but cessation three decades prior mitigates direct vascular risks with sustained tobacco abstinence. [facility] TCM Information Date of Discharge 10/14/24 Discharged From [facility] Interactive Contact Date (Reference documentation from this date) 10/15/24 [facility]LY [facility] Medical History Age-related osteoporosis without current pathological fracture Right leg pain Screening for breast cancer Overactive bladder Degenerative disc disease, lumbar Allergic rhinitis Mixed incontinence Hypercholesterolemia Vitamin D deficiency Surgical History Status post ablation of incompetent vein using laser (12/15/23) History of cataract surgery History of arthroscopy of left knee History of shoulder surgery History of hysterectomy History of cholecystectomy Family History Father Diabetes Myocardial infarction Heart disease Mother Heart disease Chronic mental illness Stomach cancer Sister Esophageal cancer Brother Esophageal cancer Paternal Grandfather Heart disease Social History Household Members: None Household Members Other:: neighbors check on her on a regular basis Housing: Other Housing Other:: two family Alcohol intake: current Alcohol intake frequency: holidays/special occasions only Comment: glass of wine once a month Patient Tobacco Use Status: Former Tobacco user e-Cigarette/Vaping Use: Never Used Second Hand Smoke Exposure: No service: No Current occupational status: retired Cognitive needs: No Hearing needs: No Vision needs: Yes Questionnaire PHQ-9 Over the last 2 weeks, how often have you been bothered by any of the following problems? 1. Little interest or pleasure in doing things: more than half the days 2. Feeling down, depressed, or hopeless: more than half the days 3. Trouble falling or staying asleep, or sleeping too much: more than half the days 4. Feeling tired or having little energy: more than half the days 5. Poor appetite or overeating: more than half the days 6. Feeling bad about yourself - or that you are a failure or have let yourself or your family down: more than half the days 7. Trouble concentrating on things, such as reading the newspaper or watching television: not at all 8. Moving or speaking so slowly that other people could have noticed. Or the opposite - being so fidgety or restless that you have been moving around a lot more than usual: not at all 9. Thoughts that you would be better off or of hurting yourself in some way: not at all Total score: 12 Depression Screening Interpretation: Positive Depression Screening Follow-up: Existing condition and In treatment Depression Screening Done: Yes 70611 - PHQ-9 Billing: Yes Source: Developed by Drs. Naeem Garza, Belia Leone, Esa Amaral and colleagues, with an educational dino from [employer]. Thrive Questionnaire Date Thrive assessed: 09/15/24 AUDIT C Alcohol Use Questionnaire (AUDIT-C) 1. How often do you have a drink containing alcohol?: 2-3 times a week 2. How many drinks containing alcohol do you have on a typical day when you are drinking?: 1 or 2 3. How often do you have six or more drinks on one occasion?: Never Total Score: 3 Score Reviewed/Action Taken: No TEZ-7 AMB Questionnaire TEZ-7 Date TEZ - 7 assessed: 09/23/24 Feeling nervous, anxious, or on edge: 0 = Not at all Not being able to stop or control worryin = Not at all Worrying too much about different things: 0 = Not at all Trouble relaxin = Not at all Being so restless that it is hard to sit still: 0 = Not at all Becoming easily annoyed or irritable: 0 = Not at all Feeling afraid as if something awful might happen: 0 = Not at all Total TEZ-7 score (0-4 normal; 5-9 mild; 10-14 moderate; 15-21 severe): 0 Source: Developed by Drs. Naeem Garza, Belia Leone, Esa Amaral and colleagues, with an educational dino from [employer]. TEZ-7 Assessment Billing TEZ-7 Assessment Tool: TEZ-7 Assessment 88463 Review of Systems Const Denies body aches, Denies chills, Denies fever(s), Denies headache(s) and Denies poor appetite Eyes Reports no additional complaints ENT Reports Normal hearing present, Denies dysphagia, Denies dizziness, Denies headache(s) and Denies odynophagia Card Denies chest pain, Denies syncope, Denies edema, Denies irregular heart rhythm, Denies lightheadedness and Denies dyspnea Resp Denies cough and Denies dyspnea GI Denies abdominal pain, Denies constipation, Denies dysphagia, Denies diarrhea, Denies nausea, Denies odynophagia and Denies vomiting Reports no additional complaints Musc Reports no additional complaints and Denies abnormal gait Skin/Breast Reports system reviewed and no additional complaints, except as documented Neuro Reports Normal hearing present, Denies Abnormal speech present, Denies abnormal gait, Denies dizziness, Denies syncope and Denies headache(s) Psych Reports no additional complaints Physical exam (Primary Care) Vital Signs: Oxygen Delivery Method Room Air 09/23/24 11:34 Tobacco/Smoking Status: Tobacco use Status Tobacco use date assessed 08/08/23 06/17/24 11:37 Patient Tobacco Use Status Former Tobacco user 09/16/24 14:30 e-Cigarette/Vaping Use Never Used 06/17/24 11:37 Depression Screening Interpretation: Positive Depression Screening Follow-up: Existing condition and In treatment Thrive Assessment: Date of Thrive Assessment Date Thrive assessed 09/15/24 09/17/24 15:32 Const General: cooperative, healthy appearing, comfortable and no acute distress Orientation/consciousness: patient oriented x3 HENMT Head: Yes normocephalic Ears: hearing grossly normal bilaterally General nose exam: Normal external nose present Eyes General: appearance normal, both eyes and all related structures Conjunctivae: conjunctivae normal Pupils: Equal, round and reactive pupils present Neck Neck: Yes full ROM and Yes no lymphadenopathy Resp Effort & Inspection: normal respiratory effort Auscultation: clear to auscultation bilaterally, no crackles, no rales, no rhonchi and no wheezes Cardio Rate: regular rate Rhythm: regular rhythm Skin General skin exam: no rashes or lesions noted Neuro General: patient oriented x3 Cranial nerves: Yes CN's II-XII intact bilaterally, Yes Facial sensation intact/muscles of mastication intact, Yes Equal, round and reactive pupils present, Yes Bilaterally intact EOM present, Yes Nystagmus not present, Yes Normal facial strength present, Yes Midline tongue present, Yes Symmetric palate elevation present, Yes Normal hearing present, Yes Ability to bilaterally rotate head present and Yes Ability to bilaterally elevate shoulders present Speech: No Abnormal speech present Gait exam (Neuro): Normal gait present Extrem General: Yes normal to inspection, Yes full ROM and No edema Psych Affect: normal affect Attitude: cooperative Insight: Good insight present (Psych) Judgement: Good judgement present (Psych) Coding Level of Care Code TCM Mod MDM <= 7 Days Complex EM visit Add On G2211 Diagnoses Acute CVA (cerebrovascular accident) I63.9 Left carotid stenosis I65.22 Impaired fasting blood sugar R73.01 Hypercholesterolemia E78.00 Additional Codes TEZ-7 Assessment Billing - TEZ-7 Assessment Tool: TEZ-7 Assessment 60613 ([id number]) PHQ-9 - 40012 - PHQ-9 Billing: Yes ([id number]) Assessment & Plan Assessment & Plan (1) Acute CVA (cerebrovascular accident): Comment: August 2024 Code(s): I63.9 - Cerebral infarction, unspecified Category: Medical Plan: I am ensuring rigorous management for the cerebrovascular accident, prioritizing continuance of clopidogrel and aspirin and commencing atorvastatin. Lowering cholesterol to below the newly recommended target is critical following stroke history, LDL below 70. Vascular evaluation of possible stenosis is scheduled, where a surgical solution may be engaged if warranted by Dr. Castellanos's assessment. Monitoring of blood pressure, routine blood work including cholesterol levels, and glucose readings is apt given her medical history, furthering efforts in maintaining post-stroke wellbeing. (2) Left carotid stenosis: Code(s): I65.22 - Occlusion and stenosis of left carotid artery Category: Medical Plan: Has appointment with Dr. Castellanos tomorrow for further management. (3) Impaired fasting blood sugar: Code(s): R73.01 - Impaired fasting glucose Category: Medical Plan: Decrease the amount of carbohydrates such as pasta, bread, rice, and potatoes and limit the amount of sweets. Although fruits are generally healthy they should be eaten in moderation as they are still high in sugar. (4) Hypercholesterolemia: Code(s): E78.00 - Pure hypercholesterolemia, unspecified Category: Medical Plan: Avoid foods that are high in cholesterol such as red meat, fried foods, eggs and baked goods. Triglyceride goal of less than 150 and LDL goal of less than 70. Continue on Atorvastatin 40mg. Repeat cholesterol prior to next visit. Plan This note was constructed using voice recognition software. While every effort has been made to ensure accuracy and nutrition aide, still areas may have been included sometimes these areas may affect the content or meeting of the given symptoms. Total time spent caring for the patient today was 20 minutes. This includes time spent before the visit reviewing the chart, time spent during the visit, and time spent after the visit and documentation. Patient was informed and verbally consented to the use of an ambient scribe for clinic note documentation during this visit. Orders: Referrals Neurology Referral I63.9 - Cerebral infarction, unspecified
--- OUTSIDE RECORDS SUMMARY | 2024-09-23 13:39 | XMS_ITS | Patient Health Record ---
Author Organization [facility] Address [address] [place] [address] Care Team Providers Care President Of The [place] Name Role Phone Fabiano Mckeon MD Primary [...] Notes Problem Rectal bleeding (K62.5) Active confirmed 14289879 Problem Gastroesophageal reflux disease without esophagitis (K21.9) Active confirmed [id number] Problem Irritable bowel syndrome with both constipation and diarrhea (K58.2) Active confirmed [id number] PLAN OF TREATMENT Future Test Test Name Order Date COLONOSCOPY 04/29/2015 Insurance Providers Payer Name Payer Address Payer Phone Subscriber Number Group Number Insured Name Patient Relationship to Insured Coverage Start Date Coverage End Date MEDICARE OF [place] [address] [place] [id number] LILY VENCES Self - patient is the insured MEDICAID OF [facility] [address] [place] [phone] [id number] LILY VENCES Self - patient is the insured MEDICAL (GENERAL) HISTORY Medical History History ICD Code tubular adenoma 09/26, last colonoscopy , no adenomas. elevated cholesteroll hiatal hernia reflux disease chest pain SOB Surgical History Surgery Date(Month/Year) cholecystectomy hysterectomy knee surgery hand surgery scoped shoulders
--- OUTSIDE RECORDS SUMMARY | 2024-09-23 13:39 | XMS_ITS | Continuity of Care Document ---
Author Organization [facility] Address [address] [place] [address], [address] [place] [address]- Care Team Providers Care Installer Inspector Final Name Role Phone Po Fabiano NAVARRO Primary Care Physician Encounter [facility] Date(s): 08/07/24 - 09/06/24 [facility] [address] [facility] [place], [place] [address] Attending Physician: Mague Watt Admitting Physician: Mague Watt Referring Physician: Mague Watt Encounter Type: Triage Allergies, Adverse Reactions, Alerts Substance Criticality Severity Reaction Reaction Severity Status morphine stomach pain, h eart palpitations O/E - pain Active traMADol closing throat Facial swelling Active codeine stomach pain O/E - pain Active nitrofurantoin Hives Activ e aspirin stomach pain O/E - pain Active Bactrim Nausea Diarrhea Active Percocet 7.5/325 stomach daniel n O/E - pain Active Immunizations Given and Recorded Vaccine Date Status Refusal Reason SARS-CoV-2 (COVID-19) mRNA-1273 vaccine 10/14/20 G iven SARS-CoV-2 (COVID-19) mRNA-1273 vaccine 09/16/20 G iven Medications Cipro 500 mg oral tablet 1 tablet = 500 mg, By Mouth, Every 12 hours, med is as reported by patient, # 20 tablet, 0 Refills,Maintenance, 06/10/24 4:42:00 PM EST, Tablet, Partial fill upon patient request if the prescriptionis for a schedule II opioid drug. Start Date: 06/10/24 Stop Date: 06/20/24 Status: Ordered Quantity: 20.0 Unit: tablet Repeat number: 1 citalopram 20 mg oral tablet 20 mg, 1, tablet, By Mouth, Daily at bedtime, Refills 0, Maintenance, 05/09/19 3:22:39 PM EDT Start Date: 05/09/19 Status: Ordered Repeat number: 1 Estrace Vaginal Cream 0.1 mg/g = 1 Gm, Vaginally, Every Monday and Monday, # 42.5 Gm, 5 Refills, Maintenance, 08/07/24 12:05:00 [facility], [facility]/pharmacy #[id number], Partial fill upon patient request if the prescription is for a schedule IIopioid drug., 169, cm, 06/10/24 16:59:00 EST, Height, 71.5, kg, 06/10/24 16:59:00 EST, Dry Weight Start Date: 08/07/24 Status: Ordered Quantity: 42.5 Unit: g Repeat number: 6 estradiol 0.5 mg oral tablet 1 tablet = 0.5 mg, By Mouth, Daily in AM, # 30 tablet, 0 Refills, Maintenance, 05/09/19 3:26:16 PM EDT, Tablet Start Date: 05/09/19 Status: Ordered Quantity: 30.0 Unit: tablet Repeat number: 1 Mineral Oil By Mouth, Daily at bedtime, 0 Refills, Maintenance, 09/29/22 5:03:00 PM EST, Partial fill upon patient request if the prescription is for a schedule II opioid drug. Start Date: 09/29/22 Status: Ordered Repeat number: 1 Prevagen Estra Strength 50 mcg (2000 intl units) oral capsule 1 capsule = 50 mcg, By Mouth, Daily, 0 Refills, Maintenance, 10/18/22 12:05:00 PM EDT, Partial fill upon patient request if the prescription is for a schedule II opioid drug. Start Date: 10/18/22 Status: Ordered Repeat number: 1 Probiotic Formula By Mouth, Daily in AM, 0 Refills, Maintenance, 09/29/22 5:03:00 PM EST, Partial fill upon patient request if the prescription is for a schedule II opioid drug. Start Date: 09/29/22 Status: Ordered Repeat number: 1 Tums 500 mg oral tablet, chewable 500 mg, 1, tablet, Chew, 2 times a day, PRN, # 12 tablet, Refills 0, Maintenance, as needed for dyspepsia, 09/29/22 5:03:00 PM EST, Partial fill upon patient request if the prescription is for a schedule II opioid drug. Start Date: 09/29/22 Status: Ordered Quantity: 12.0 Unit: tablet Repeat number: 1 Vitamin D3 1000 intl units oral capsule 1 capsule = 1,000 International_Units, By Mouth, Daily before lunch, 0 Refills, Maintenance, 05/09/19 3:22:58 PM EDT Start Date: 05/09/19 Status: Ordered Repeat number: 1 Problem List Condition Confirmation Course Effective Dates Status Health St atus Informant Arthritis Confirmed Active Seasonal allergies Confirmed Active Vitamin D deficiency Confirmed Active Social History Social History Type Response Smoking Status Former smoker, quit more than 30 days ago; Other: Smoked for 35 yrs about 2 packs a day. Quit in 1996.; entered on: 04/01/22 Sex Sex Representation Female (finding) Implantable Device List Procedure Provider Procedure Date Device Type Site Transvaginal Tape Cysto Shelby Chávez MD 09/30/19 Unkn own Vagina Device Identifier Serial Number Lot or Batch Number Manufacturing Date Expiration Date Distinct Identification Code MRI Safety Implantable Status Assigning Authority [id number] Unknown [id number] Unknown 08/08/22 Unknown Unknown Active GS1 Patient Care team information Care Team Personnel Name: Flako Lux RN Position: S RN Member Role: Primary Care Nurse Name: Fabiano Mckeon MD Position: Reference Physician Member Role: PCP [address]: [address] [place] [address] Telecom: Care Team Related Persons Name: LOVE BERNSTEIN Name: THOMAS NIETO Name: [id number] RELATIONSHIP BEING BRYANT, [id number] RELATIONSHIP Insurance Providers Guarantor name: NA Health Plan Information #: 1 Payer: MEDICARE PART B OUTPT Member Number: NA Policy Number: NA Group Number: NA Health Plan Information #: 2 Payer: [facility] Member Number: NA Policy Number: NA Group Number: NA
== END 2024-09-23 12:20 | disposition home or self-care (01) ==
PROVIDERS: PCP Internal Medicine
DX: I65.22 Occlusion and stenosis of left carotid artery (principal); Z86.73 Personal history of transient ischemic attack (TIA), and cerebral infarction without residual deficits; R73.01 Impaired fasting glucose; E78.00 Pure hypercholesterolemia, unspecified

== ENCOUNTER → 2024-09-23 11:28 | Outpatient (BNVA) | payer MEDICARE, MEDICAID, SELFPAY | PROVIDERS: PCP Internal Medicine | DX: I63.9 Cerebral infarction, unspecified (principal); I65.22 Occlusion and stenosis of left carotid artery; R73.01 Impaired fasting glucose; E78.00 Pure hypercholesterolemia, unspecified | CPT/HCPCS: 96127; 99495 ==

== ENCOUNTER 2024-09-24 12:51 | Outpatient (AMB) | payer MEDICARE, MEDICAID, SELFPAY ==
[2024-09-24 13:09] VITALS: BMI 25.6
--- NOTE | 2024-09-24 13:09 | MHC.OFFVIS ---
Vital Signs 09/24/24 13:09 Height 5 ft 5 in Weight 154 lb BMI 25.6 Intake Visit Reasons: ED follow up regarding carotid stenosis Intake Note: ED follow up for carotid stenosis s/p US 09/14/24 for dizziness & weakness. Horse Trader Required: No Accompanied by: Daughter Allergies tramadol [TRAMADOL] Allergy (Severe, Verified 09/24/24 13:17) THROAT SWELLING morphine [MORPHINE] Allergy (Intermediate, Verified 09/24/24 13:17) JITTERY, pain nitrofurantoin [From MACROBID] Allergy (Intermediate, Verified 09/24/24 13:17) HIVES codeine [CODEINE] Allergy (Unknown, Verified 09/24/24 13:17) pain oxycodone [Percocet] Allergy (Unknown, Verified 09/24/24 13:17) pain Sulfa (Sulfonamide Antibiotics) Allergy (Unknown, Verified 09/24/24 13:17) Nausea, diarrhea mirabegron [From Myrbetriq] Adverse Reaction (Intermediate, Verified 09/24/24 13:17) Dizziness sulfamethoxazole [From BACTRIM] Adverse Reaction (Intermediate, Verified 09/24/24 13:17) NAUSEA/DIARRHEA trimethoprim [From BACTRIM] Adverse Reaction (Intermediate, Verified 09/24/24 13:17) NAUSEA/DIARRHEA aspirin [ASPIRIN] Adverse Reaction (Mild, Verified 09/24/24 13:17) GI UPSET - ABD PAIN, pain Propoxyphene HCl Allergy (Unknown, Uncoded 09/24/24 13:17) Unknown From DARVOCET-N 100 Adverse Reaction (Intermediate, Uncoded 09/24/24 13:17) ABD PAIN - NAUSEA HPI HPI ED follow up regarding carotid stenosis: Details: Very pleasant 79-year-old female presents for follow-up regarding carotid stenosis. She was actually seen in the emergency room with complaints lip numbness and loss of balance. She had been feeling slightly uncomfortable and week 2 days prior to admission. She reported having 2 different falls with no loss of consciousness. She was subsequently brought into the emergency room and worked up. 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 She now presents for routine vascular follow-up. Of note she did have a carotid ultrasound in the hospital. [facility] Medical History Age-related osteoporosis without current pathological fracture Right leg pain Screening for breast cancer Overactive bladder Degenerative disc disease, lumbar Allergic rhinitis Mixed incontinence Hypercholesterolemia Vitamin D deficiency Surgical History Status post ablation of incompetent vein using laser (12/15/23) History of cataract surgery History of arthroscopy of left knee History of shoulder surgery History of hysterectomy History of cholecystectomy Family History Father Diabetes Myocardial infarction Heart disease Mother Heart disease Chronic mental illness Stomach cancer Sister Esophageal cancer Brother Esophageal cancer Paternal Grandfather Heart disease Social History Household Members: None Household Members Other:: neighbors check on her on a regular basis Housing: Other Housing Other:: two family Alcohol intake: current Alcohol intake frequency: holidays/special occasions only Comment: glass of wine once a month Patient Tobacco Use Status: Former Tobacco user e-Cigarette/Vaping Use: Never Used Second Hand Smoke Exposure: No service: No Current occupational status: retired Cognitive needs: No Hearing needs: No Vision needs: Yes Review of Systems Const All systems reviewed & are unremarkable except as noted in HPI and below Reports no additional complaints ENT Reports Normal hearing present Card Denies chest pain, Denies chest pain at rest, Denies chest pain with activity and Denies pedal edema Resp Denies cough GI Denies abdominal pain Musc Denies abnormal gait, Denies muscle cramps and Denies radiating pain into limb Skin/Breast Denies skin ulcer and Denies wounds Neuro Reports Normal hearing present and Denies abnormal gait Psych Reports no additional complaints Physical Exam Vital Signs: BMI result Body Mass Index 25.6 Const General: cooperative, healthy appearing and comfortable Orientation/consciousness: oriented to person, oriented to place and oriented to time HEENT Head: Yes normal to inspection Neck Neck: Yes normal visual inspection Carotids: no bruits Chest Chest palpation & inspection: normal inspection of the chest Resp Effort & Inspection: normal respiratory effort and able to speak in complete sentences Auscultation: clear to auscultation bilaterally, no crackles, no rales, no rhonchi and no wheezes Cardio Rate: regular rate Rhythm: regular rhythm Heart sounds: S1 normal heart sound present and S2 normal heart sound present Bruits: no carotid bruits Peripheral pulses: Peripheral pulses 2+ throughout GI Inspection: Yes normal to inspection Skin Wounds: no wounds Hair: normal Neuro General: oriented to person, oriented to place and oriented to time Cranial nerves: Yes CN's II-XII intact bilaterally and Yes Normal hearing present Cognition (Neuro): normal cognition Motor exam (neuro): 5/5 motor strength present throughout Extrem Other: venous exam: No significant superficial varicosities or spider telangiectasias, minimal edema General: No clubbing, No cyanosis and No edema Psych Appearance: grossly normal Mental Status: mental status grossly normal Speech and movement: Normal speech and movement present Results Reviewed Results Reviewed: Carotid testing dated 09/15/2024 demonstrates left-sided stenosis 50-79% with a peak systolic of 129 and right side less than 50% with a peak systolic of 88. Written report and images were reviewed. Assessment & Plan Assessment & Plan (1) Left carotid stenosis: Code(s): I65.22 - Occlusion and stenosis of left carotid artery Category: Medical Plan: In short patient has carotid stenosis. Unclear etiology of the stroke. Although the stenosis side and area of stroke do not correlate I do think it would be prudent to get a CT angiogram to better elucidate the true degree of stenosis and to characterize the morphology of the plaque. This was discussed with the patient and the patient's daughter who was at bedside. They were in agreement. We will get this CT angiogram as soon as possible and she will follow up with us after testing. Thank you for allowing us to assist in her care. If there are any questions or concerns please do not hesitate to contact us The patient had an opportunity to ask questions regarding the treatment plan. All questions were answered. Imaging studies, laboratory studies and physical exam results were discussed and reviewed in detail. No major barriers to understanding were identified. The patient expressed understanding and agreement with the above treatment plan. The patient is aware they should contact our office by phone for worsening of the current condition or the appearance of new symptoms. Thank you for allowing me to participate in the vascular care of this patient. If you have any questions or concerns regarding the treatment for the above condition please do not hesitate to contact me. The office telephone contact is [phone]. This note is constructed using voice recognition software. While every effort has been made to ensure accuracy, fitness sales consultant errors may have been included. Thank you for allowing me to participate in the care of your patient. Yours sincerely, Anthony Castellanos MD, FACS, R.P.V.I. Orders: Orders CT angio neck 1 Week I65.22 - Occlusion and stenosis of left carotid artery Coding Level of Care Code Est Pt Level 4 (15881) Complex EM visit Add On G2211 Diagnoses Left carotid stenosis I65.22
--- OUTSIDE RECORDS SUMMARY | 2024-09-24 15:52 | XMS_ITS | Patient Health Record ---
Author Organization [facility] Address [address] [place] [address] Care Team Providers Care Social Insurance Specialist Name Role Phone Fabiano Mckeon MD Primary [...] Notes Problem Rectal bleeding (K62.5) Active confirmed 57017375 Problem Gastroesophageal reflux disease without esophagitis (K21.9) Active confirmed [id number] Problem Irritable bowel syndrome with both constipation and diarrhea (K58.2) Active confirmed [id number] PLAN OF TREATMENT Future Test Test Name Order Date COLONOSCOPY 04/29/2015 Insurance Providers Payer Name Payer Address Payer Phone Subscriber Number Group Number Insured Name Patient Relationship to Insured Coverage Start Date Coverage End Date MEDICARE OF [place] [address] [place] [id number] [phone] [id number] LILY VENCES Self - patient is the insured MEDICAID OF [facility] [address] [place] [phone] [id number] LILY VENCES Self - patient is the insured MEDICAL (GENERAL) HISTORY Medical History History ICD Code tubular adenoma 09/26, last colonoscopy , no adenomas. elevated cholesteroll hiatal hernia reflux disease chest pain SOB Surgical History Surgery Date(Month/Year) cholecystectomy hysterectomy knee surgery hand surgery scoped shoulders
--- OUTSIDE RECORDS SUMMARY | 2024-09-24 15:52 | XMS_ITS | Clinical Summary ---
Author Organization [facility] Address [address] [place] [address] Care Team Providers Care Belt Cleaner Name Role Phone Fabiano Mckeon MD Primary Care Provider [phone] Allergies Active Allergy Reactions Criticality Noted Date Comments Aspirin 08/24/2021 Other reaction(s): O/E - pain, stomach pain Codeine 08/24/2021 Other reaction(s): O/E - pain, stomach pain Morphine 08/24/2021 Other reaction(s): O/E - pain, stomach pain, heart palpitations Nitrofurantoin 10/08/2021 Other reaction(s): Hives Oxycodone-Acetaminophen Other (See Comments) 10/08/2021 Other reaction(s): stomach pain Sulfa Antibiotics 07/09/2021 Sulfamethoxazole-Trimet hoprim Diarrhea,Nausea And Vomiting 08/24/2021 Tramadol Other (See Comments) 10/08/2021 Medications Medication Sig Dispensed Refills Start Date End Date Status citalopram (CeleXA) 20 MG tablet Take 20 mg by mouth daily. 0 09/25/2021 Active estradiol (ESTRACE) 0.5 MG tablet Take 0.5 mg by mouth daily. 0 07/19/2021 Active Myrbetriq 25 MG TB24 24 hr tablet TAKE 1 TABLET BY MOUTH EVERY DAY DO NOT CRUSH OR CHEW 0 09/01/2021 Active Family History Medical History Relation Name Comments Heart disease Brother Hyperlipidemia Brother Heart disease Father Cancer Mother Relation Name Status Comments Brother Father Mother Social History Tobacco Use Types Packs/Day Years Used Date Smoking Tobacco: Former Cigarettes Q uit: 1992 Smokeless Tobacco: Never Alcohol Use Standard Drinks/Week Comments Yes 0 (1 standard drink = 0.6 oz pur e alcohol) Sex and Gender Information Value Date Recorded Sex Assigned at Not on file Gender Identity Not on file Sexual Orientation Not on file Job Start Date Occupation Industry Not on file Not on file Not on file Last Filed Vital Signs Vital Sign Reading Time Taken Comments Blood Pressure - - Pulse - - Temperature - - Respiratory Rate - - Oxygen Saturation - - Inhaled Oxygen Concentration - - Weight 73 kg (161 lb) 10/08/2021 10:32 AM EDT Height 168.3 cm (5' 6.25 ) 10/08/2021 10:32 AM E DT Body Mass Index 25.79 10/08/2021 10:32 AM EDT Plan of Treatment Health Maintenance Due Date Last Done Comments Hepatitis C Screening 1945 COVID-19 Vaccine (#1) [birth year]28/1946 Depression Screening 1959 Preventative Health Evaluation 1965 DTap / Tdap / Td (1 - Tdap) 1966 Shingrix-Zoster Vaccine (1 of 2) 1997 Fall Risk Assessment 2012 Osteoporosis Screening (DEXA Scan) 2012 Pneumococcal Vaccine (1 of 1 - PCV) 2012 RSV Adult > 60+ Yrs or Pregn ant (1 - 1-dose 75+ series) 2022 Influenza Vaccine (#1) 2024 Hepatitis B Vaccines Aged Out No long er eligible based on patient's age to complete this topic RSV Ped < 20 months Aged Out No longe r eligible based on patient's age to complete this topic Care Teams Belt Cleaner Relationship Specialty Start Date End Date Fabiano Mckeon MD [address] [place] [address] [address] [facility] [place] [address] PCP - General Internal Medicine 09/30/21
== END 2024-09-24 13:50 | disposition home or self-care (01) ==
PROVIDERS: PCP Internal Medicine; Visit Provider Surgery Vascular Surgery
DX: I65.22 Occlusion and stenosis of left carotid artery (principal)
CPT/HCPCS: 99214; G2211

== ENCOUNTER → 2024-09-24 12:51 | Outpatient (BNVA) | payer MEDICARE, MEDICAID, SELFPAY | PROVIDERS: PCP Internal Medicine; Visit Provider Surgery Vascular Surgery | DX: I65.22 Occlusion and stenosis of left carotid artery (principal) | CPT/HCPCS: 99212 ==

== ENCOUNTER 2024-10-07 14:03 | Outpatient (REF) | payer MEDICARE, MEDICAID, SELFPAY ==
--- NOTE | ~2024-10-07 | CT_ITS ---
CLINICAL HISTORY: I65.22 - Occlusion and stenosis of left carotid artery CT angiography neck with contrast. 3-D postprocessing Comparison: US - US CAROTID DUPLEX BI - 09/15/24 08:05 EST Findings: The common carotid arteries are patent without stenosis. The internal carotid arteries are patent without stenosis. The mildly elevated velocities in the left internal carotid artery on the carotid ultrasound may have been from vessel tortuosity. The left vertebral artery is dominant. The vertebral arteries are patent without stenosis. There is no arterial dissection. The basilar artery is patent without stenosis. Visualized portions of the anterior, middle, and posterior cerebral arteries are patent without stenosis. There is mild centrilobular emphysema in the visualized upper lungs. IMPRESSION: No arterial occlusion, stenosis, or dissection. This document has been electronically signed by: Jg Gutierrez MD on 10/07/2024 17:34:12
--- OUTSIDE RECORDS SUMMARY | 2024-10-07 16:31 | XMS_ITS | Patient Health Record ---
Author Organization [facility] Address [address] [place] [address] Care Team Providers Care Loading Dock Helper Name Role Phone Fabinao Mckeon MD Primary Care Provider Prem Coe Jr Unavailable [phone] Allergies Allergen (clinical drug ingredient) Drug/Non Drug Allergy documented on EMR Reaction Allergy Type Onset Date Status tramadol Tramadol HCl SOB Drug Allergy Acti ve acetaminophen / oxycodone Percocet vomiting Drug Allergy Active most pain medications (uncoded) stomach upset Allergy Active Reason For Referral No Information Medications Medication SIG (Take, Route, Frequency, Duration) Notes Start Date End Date Status Citalopram Hydrobromide 10 MG 1 tablet Orally Once a day Active Estrace 0.5 MG 1 tablet Orally daily Active Flax Seed Oil Active Advil 200 MG 2 tablet as needed O rally at HS Active Vitamin D3 Active Probiotic Active Social History Tobacco Use: Social History Observation Description Date Details (start date - stop date) Former Smoker NA - NA Tobacco Use/Smoking Question Answer Notes Patient is a former smoker When did you stop smoking? 28 years ago How long has it been since you last smoked? > 10 years Problems Problem Type SNOMED Code ICD Code Onset Dates Problem Status W/U Status Risk Notes Problem [id number] Rectal bleeding (K62.5) Active confirmed Problem [id number] Gastroesophageal reflux disease without esophagitis (K21.9) Active confirmed Problem 87430808 Irritable bowel syndrome with both constipation and diarrhea (K58.2) Active confirmed Plan Of Treatment Future Test Test Name Order Date COLONOSCOPY 04/29/2015 Insurance Providers Payer Name Payer Address Payer Phone Subscriber Number Group Number Insured Name Patient Relationship to Insured Coverage Start Date Coverage End Date MEDICARE OF [place] [address] [place] [id number] LILY VENCES Self - patient is the insured MEDICAID OF [facility] [address] [place] [phone] [id number] LILY VENCES Self - patient is the insured Medical (General) History Medical History History ICD Code tubular adenoma 09/26, last colonoscopy , no adenomas. elevated cholesteroll hiatal hernia reflux disease chest pain SOB Surgical History Surgery Date(Month/Year) cholecystectomy hysterectomy knee surgery hand surgery scoped shoulders
[2024-10-07] MEDS: iohexoL 350 MG/ML 75 ML INFUS..BTL 70 ML IV (16:53)
== END 2024-10-07 14:04 | disposition home or self-care (01) ==
LOC: HO.CT 14:03
PROVIDERS: PCP Internal Medicine; Visit Provider Surgery Vascular Surgery
DX: I65.22 Occlusion and stenosis of left carotid artery (principal)
CPT/HCPCS: 70498; Q9967

== ENCOUNTER → 2024-10-07 14:05 | Outpatient (BNV) | payer MEDICARE, MEDICAID, SELFPAY | PROVIDERS: PCP Internal Medicine; Visit Provider Radiology Diagnostic Radiology | DX: I65.22 Occlusion and stenosis of left carotid artery (principal) | CPT/HCPCS: 70498 ==

== ENCOUNTER 2024-10-15 10:41 | Outpatient (AMB) | payer MEDICARE, MEDICAID, SELFPAY ==
[2024-10-15 10:59] VITALS: BMI 25.6
--- NOTE | 2024-10-15 10:59 | MHC.OFFVIS ---
Vital Signs 10/15/24 10:59 Height 5 ft 5 in Weight 154 lb BMI 25.6 Intake Visit Reasons: follow up s/p Neck CTA 10/07/24 Intake Note: follow up CTA Neck 10/07/24 s/p ED follow up carotid stenosis US 09/14/24 for dizziness & weakness. 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: No Accompanied by: Daughter Allergies tramadol [TRAMADOL] Allergy (Severe, Verified 10/15/24 11:02) THROAT SWELLING morphine [MORPHINE] Allergy (Intermediate, Verified 10/15/24 11:02) JITTERY, pain nitrofurantoin [From MACROBID] Allergy (Intermediate, Verified 10/15/24 11:02) HIVES codeine [CODEINE] Allergy (Unknown, Verified 10/15/24 11:02) pain oxycodone [Percocet] Allergy (Unknown, Verified 10/15/24 11:02) pain Sulfa (Sulfonamide Antibiotics) Allergy (Unknown, Verified 10/15/24 11:02) Nausea, diarrhea mirabegron [From Myrbetriq] Adverse Reaction (Intermediate, Verified 10/15/24 11:02) Dizziness sulfamethoxazole [From BACTRIM] Adverse Reaction (Intermediate, Verified 10/15/24 11:02) NAUSEA/DIARRHEA trimethoprim [From BACTRIM] Adverse Reaction (Intermediate, Verified 10/15/24 11:02) NAUSEA/DIARRHEA aspirin [ASPIRIN] Adverse Reaction (Mild, Verified 10/15/24 11:02) GI UPSET - ABD PAIN, pain Propoxyphene HCl Allergy (Unknown, Uncoded 10/15/24 11:02) Unknown From DARVOCET-N 100 Adverse Reaction (Intermediate, Uncoded 10/15/24 11:02) ABD PAIN - NAUSEA HPI HPI follow up s/p Neck CTA 10/07/24: Details: The patient is a 79-year-old female presenting with balance impairment following initial symptoms of lip numbness and imbalance. Initially, an emergency evaluation suggested potential high-grade carotid stenosis via ultrasound. However, subsequent CT angiography confirmed the absence of carotid artery blockages. Despite this, the patient continues to experience balance difficulties, including unsteadiness and unexpected tipping. She denies any additional episodes of numbness. A neurologist has been engaged to further explore the underlying cause of her ongoing balance issues. [facility] Medical History Age-related osteoporosis without current pathological fracture Right leg pain Screening for breast cancer Overactive bladder Degenerative disc disease, lumbar Allergic rhinitis Mixed incontinence Hypercholesterolemia Vitamin D deficiency Surgical History Status post ablation of incompetent vein using laser (12/15/23) History of cataract surgery History of arthroscopy of left knee History of shoulder surgery History of hysterectomy History of cholecystectomy Family History Father Diabetes Myocardial infarction Heart disease Mother Heart disease Chronic mental illness Stomach cancer Sister Esophageal cancer Brother Esophageal cancer Paternal Grandfather Heart disease Social History Household Members: None Household Members Other:: neighbors check on her on a regular basis Housing: Other Housing Other:: two family Alcohol intake: current Alcohol intake frequency: holidays/special occasions only Comment: glass of wine once a month Patient Tobacco Use Status: Former Tobacco user e-Cigarette/Vaping Use: Never Used Second Hand Smoke Exposure: No service: No Current occupational status: retired Cognitive needs: No Hearing needs: No Vision needs: Yes Review of Systems Const All systems reviewed & are unremarkable except as noted in HPI and below Reports no additional complaints ENT Reports Normal hearing present Card Denies chest pain, Denies chest pain at rest, Denies chest pain with activity and Denies pedal edema Resp Denies cough GI Denies abdominal pain Musc Denies abnormal gait, Denies muscle cramps and Denies radiating pain into limb Skin/Breast Denies skin ulcer and Denies wounds Neuro Reports Normal hearing present and Denies abnormal gait Psych Reports no additional complaints Physical Exam Vital Signs: BMI result Body Mass Index 25.6 Const General: cooperative, healthy appearing and comfortable Orientation/consciousness: oriented to person, oriented to place and oriented to time HEENT Head: Yes normal to inspection Neck Neck: Yes normal visual inspection Carotids: no bruits Chest Chest palpation & inspection: normal inspection of the chest Resp Effort & Inspection: normal respiratory effort and able to speak in complete sentences Auscultation: clear to auscultation bilaterally, no crackles, no rales, no rhonchi and no wheezes Cardio Rate: regular rate Rhythm: regular rhythm Heart sounds: S1 normal heart sound present and S2 normal heart sound present Bruits: no carotid bruits Peripheral pulses: Peripheral pulses 2+ throughout GI Inspection: Yes normal to inspection Skin Wounds: no wounds Hair: normal Neuro General: oriented to person, oriented to place and oriented to time Cranial nerves: Yes CN's II-XII intact bilaterally and Yes Normal hearing present Cognition (Neuro): normal cognition Motor exam (neuro): 5/5 motor strength present throughout Extrem Other: venous exam: No significant superficial varicosities or spider telangiectasias, minimal edema General: No clubbing, No cyanosis and No edema Psych Appearance: grossly normal Mental Status: mental status grossly normal Speech and movement: Normal speech and movement present Results Reviewed Results Reviewed: CT scan dated 10/07 2024 demonstrates no arterial occlusion, stenosis or dissection. Written report and images were reviewed. Assessment & Plan Assessment & Plan (1) Left carotid stenosis: Code(s): I65.22 - Occlusion and stenosis of left carotid artery Category: Medical Plan: I discussed with the patient that the CT angiogram ruled out carotid stenosis, indicating no need for surgical intervention in terms of carotid disease. We explored her persistent balance issues, and I advised that these might likely have a neurological or other non-vascular origin. I recommended continued follow-up with her neurologist for further evaluation of her symptoms. I reassured her that the absence of carotid pathology suggests no immediate risks of stroke from arterial blockages. We discussed the implications of the CT findings and agreed on pursuing neurological consultation as the next step. She will follow up with us on an as-needed basis. Thank you for allowing us to assist in her care. (2) Varicose veins of right lower extremity with inflammation: Comment: 12/15/2023-right great saphenous vein Cyanoacralate ablation Code(s): I83.11 - Varicose veins of right lower extremity with inflammation Category: Medical Plan: Stable (3) Superficial thrombophlebitis of right leg: Comment: November 2022No DVT demonstrated in the right lower extremity. Superficial thrombophlebitis of the greater saphenous vein in the calf. Code(s): I80.01 - Phlebitis and thrombophlebitis of superficial vessels of right lower extremity Category: Medical Plan: Stable Coding Level of Care Code Est Pt Level 4 (98816) Complex EM visit Add On G2211 Diagnoses Left carotid stenosis I65.22 Varicose veins of right lower extremity with inflammation I83.11 Superficial thrombophlebitis of right leg I80.01
--- OUTSIDE RECORDS SUMMARY | 2024-10-15 12:54 | XMS_ITS | Clinical Summary ---
Author Organization [facility] Address [address] [place] [address] Care Team Providers Care Customs Compliance Analyst Name Role Phone Fabiano Mckeon MD Primary Care Provider [phone] Allergies Active Allergy Reactions Criticality Noted Date [...] age to complete this topic Care Teams Customs Compliance Analyst Relationship Specialty Start Date End Date Fabiano Mckeon MD [address] [place] [address] [address] [facility] [place] [address] PCP - General Internal Medicine 09/30/21
--- OUTSIDE RECORDS SUMMARY | 2024-10-15 12:54 | XMS_ITS | Patient Health Record ---
Author Organization [facility] Address [address] [place] [address] Care Team Providers Care Accounts Specialist Name Role Phone Fabiano Mckeon MD Primary Care Provider Prem Coe Jr Unavailable [phone] Allergies Allergen (clinical drug ingredient) Drug/Non Drug [...] Problem Status W/U Status Risk Notes Problem 50737962 Rectal bleeding (K62.5) Active confirmed Problem [id number] Gastroesophageal reflux disease without esophagitis (K21.9) Active confirmed Problem [id number] Irritable bowel syndrome with both constipation and diarrhea (K58.2) Active confirmed Plan Of Treatment Future Test Test Name Order Date COLONOSCOPY 04/29/2015 Insurance Providers Payer Name Payer Address Payer Phone Subscriber Number Group Number Insured Name Patient Relationship to Insured Coverage Start Date Coverage End Date MEDICARE OF [place] [address] [place] [id number] LILY VENCES Self - patient is the insured MEDICAID OF [facility] [address] [place] [phone] [id number] LILY VENCES Self - patient is the insured Medical (General) History Medical History History ICD Code tubular adenoma 09/26, last colonoscopy , no adenomas. elevated cholesteroll hiatal hernia reflux disease chest pain SOB Surgical History Surgery Date(Month/Year) cholecystectomy hysterectomy knee surgery hand surgery scoped shoulders
== END 2024-10-15 11:20 | disposition home or self-care (01) ==
LOC: HO.HVS 10:41
PROVIDERS: PCP Internal Medicine; Visit Provider Surgery Vascular Surgery
DX: I65.22 Occlusion and stenosis of left carotid artery (principal); I83.11 Varicose veins of right lower extremity with inflammation; I80.01 Phlebitis and thrombophlebitis of superficial vessels of right lower extremity
CPT/HCPCS: 99214; G2211

== ENCOUNTER → 2024-10-15 10:41 | Outpatient (BNVA) | payer MEDICARE, SELFPAY | PROVIDERS: PCP Internal Medicine; Visit Provider Surgery Vascular Surgery | DX: I65.22 Occlusion and stenosis of left carotid artery (principal); I83.11 Varicose veins of right lower extremity with inflammation; I80.01 Phlebitis and thrombophlebitis of superficial vessels of right lower extremity | CPT/HCPCS: 99212 ==

== ENCOUNTER 2024-11-11 11:49 | Outpatient (REF) | payer MEDICARE, SELFPAY ==
[2024-11-11 12:59] LABS: Estimated Average Glucose 117 mg/dL; Hemoglobin A1C 129.3418 umol/L; Hemoglobin A1c % 5.7 % (<6.0); Total Hemoglobin (HGBA1C) 3314.5504 umol/L
[2024-11-11 13:22] LABS: Alanine Aminotransferase 18 U/L (0-31); Albumin Level 3.9 g/dL (3.5-5.0); Alkaline Phosphatase 41 U/L (39-117); Anion Gap 13 (12-20); Aspartate Amino Transferase 25 U/L (5-31); Bilirubin Total 0.5 mg/dL (0.0-1.0); Blood Urea Nitrogen 25 mg/dL (9-16); Carbon Dioxide 27 mmol/L (22-29); Chloride 108 mmol/L (96-108); Cholesterol 131 mg/dL (<200); Estimated Glomerular Filt Rate 53; Glucose Random 96 mg/dL (60-115); HDL Cholesterol 43 mg/dL (>40); LDL Cholesterol Calculated 71 mg/dL (<100); Potassium 4.6 mmol/L (3.3-5.1); Sodium 143 mmol/L (135-145); Total Protein 6.8 g/dL (6.5-8.0); Triglycerides 85 mg/dL (<150)
[2024-11-11 13:24] LABS: Appearance Urine Clear; Color Urine Yellow; Glucose Urine UA Negative (Negative); Leukocyte Esterase Urine Negative (Negative); Nitrite Urine Negative (Negative); PH 6.5 (5.0-9.0); Urine Blood Negative (Negative); Urine Ketones Negative (Negative); Urine Protein Negative (Neg-Trace)
[2024-11-11 13:42] LABS: Thyroid Stimulating Hormone 2.01 uIU/mL (0.32-4.0)
[2024-11-11 13:53] LABS: Folate 8.5 ng/mL (> or = 4.0); Vitamin B12 779 pg/mL (200-900)
== END 2024-11-11 11:50 | disposition home or self-care (01) ==
LOC: HO.LAB 11:49
PROVIDERS: PCP Internal Medicine; Visit Provider Internal Medicine
DX: R73.01 Impaired fasting glucose (principal); R30.0 Dysuria; E78.00 Pure hypercholesterolemia, unspecified
CPT/HCPCS: 36415; 80053; 80061; 81003; 82607; 82746; 83036; 84443

== ENCOUNTER 2024-11-20 13:08 | Outpatient (AMB) | payer MEDICARE, MEDICAID, SELFPAY ==
--- NOTE | 2024-11-20 13:10 | AM.OFFVISMDC ---
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: No Accompanied by: Self / Same As Patient Allergies tramadol [TRAMADOL] Allergy (Severe, Verified 11/20/24 13:11) THROAT SWELLING morphine [MORPHINE] Allergy (Intermediate, Verified 11/20/24 13:11) JITTERY, pain nitrofurantoin [From MACROBID] Allergy (Intermediate, Verified 11/20/24 13:11) HIVES codeine [CODEINE] Allergy (Unknown, Verified 11/20/24 13:11) pain oxycodone [Percocet] Allergy (Unknown, Verified 11/20/24 13:11) pain Sulfa (Sulfonamide Antibiotics) Allergy (Unknown, Verified 11/20/24 13:11) Nausea, diarrhea mirabegron [From Myrbetriq] Adverse Reaction (Intermediate, Verified 11/20/24 13:11) Dizziness sulfamethoxazole [From BACTRIM] Adverse Reaction (Intermediate, Verified 11/20/24 13:11) NAUSEA/DIARRHEA trimethoprim [From BACTRIM] Adverse Reaction (Intermediate, Verified 11/20/24 13:11) NAUSEA/DIARRHEA Propoxyphene HCl Allergy (Unknown, Uncoded 11/20/24 13:11) Unknown From DARVOCET-N 100 Adverse Reaction (Intermediate, Uncoded 11/20/24 13:11) ABD PAIN - NAUSEA Medication List - Last Reconciled 11/20/24 by Fabiano Mckeon MD aspirin 81 mg PO DAILY atorvastatin 40 mg PO BEDTIME cholecalciferol (vitamin D3) 25 mcg PO DAILY citalopram 40 mg PO DAILY clopidogrel 75 mg PO DAILY estradiol 0.01%(0.1mg/gram) 1 g vaginal TUFR@0900 estradiol 0.5 mg PO DAILY [gingko PO] melatonin 3 mg PO BEDTIME methenamine hippurate 1 g PO BID [Prevagen 1 tab PO DAILY] PFSH Medical History (Updated 11/20/24 @ 13:48 by Fabiano Mckeon MD) Dyspnea on exertion Left carotid stenosis Abnormal stress ECG Age-related osteoporosis without current pathological fracture Right leg pain Screening for breast cancer Overactive bladder Degenerative disc disease, lumbar Allergic rhinitis Mixed incontinence Hypercholesterolemia Vitamin D deficiency Surgical History Status post ablation of incompetent vein using laser (12/15/23) History of cataract surgery History of arthroscopy of left knee History of shoulder surgery History of hysterectomy History of cholecystectomy Family History Father Diabetes Myocardial infarction Heart disease Mother Heart disease Chronic mental illness Stomach cancer Sister Esophageal cancer Brother Esophageal cancer Paternal Grandfather Heart disease Social History Household Members: None Household Members Other:: neighbors check on her on a regular basis Housing: Other Housing Other:: two family Alcohol intake: current Alcohol intake frequency: holidays/special occasions only Comment: glass of wine once a month Patient Tobacco Use Status: Former Tobacco user e-Cigarette/Vaping Use: Never Used Second Hand Smoke Exposure: No service: No Current occupational status: retired Cognitive needs: No Hearing needs: No Vision needs: Yes Questionnaire Medicare Wellness Checkup [age] What gender do you identify with?: female During the past 4 weeks, how much have you been bothered by emotional problems such as feeling anxious, depressed, irritable, sad or downhearted, and blue?: slightly During the past 4 weeks, has your physical & emotional health limited your social activities with family, friends, neighbors, or groups?: moderately During the past 4 weeks, how much bodily pain have you generally had?: mild pain During the past 4 weeks, was someone available to help you if you needed & wanted help?: yes, as much as I wanted During the past 4 weeks, what was the hardest physical activity you could do for at least 2 minutes?: moderate Can you get to places out of walking distance without help? (For eg., can you travel alone on buses, taxis or drive your car?): Yes Can you go shopping for groceries or clothes without someone's help?: Yes Can you prepare your own meals?: Yes Can you do your housework without help?: No Because of any health problems, do you need the help of another person with your personal care needs such as eating, bathing, dressing or getting around the house?: No Can you handle your own money without help?: No During the past 4 weeks, how would you rate your health in general?: fair During the past 4 weeks how have things been going for you?: good & bad parts about equal Are you having difficulties driving your car?: no Do you always fasten your seat belt when you are in a car?: yes, usually During past 4 weeks, have you been bothered by the following: never: Sexual problems? and Trouble eating well?, sometimes: Problems using the telephone?, often: Falling or dizzy when standing up and always: Teeth or denture problems? and Tiredness or fatigue? Have you fallen 2 or more times in the past year?: Yes Are you afraid of falling?: Yes Are you a smoker?: no During the past 4 weeks, how many drinks of wine, beer, or other alcoholic beverages did you have?: 1 drink or less per week Do you exercise for about 20 minutes 3 or more times a week?: no, I usually do not exercise this much Have you been given information to help with the following?: yes: Keeping track of your medications? and no: Hazards in your house that might hurt you? How often do you have trouble taking medicines the way you have been told to take them?: I always take medicine as prescribed How confident are you that you can control & manage most of your health problems?: somewhat confident What is your race?: White PHQ-9 Over the last 2 weeks, how often have you been bothered by any of the following problems? 1. Little interest or pleasure in doing things: not at all 2. Feeling down, depressed, or hopeless: not at all 3. Trouble falling or staying asleep, or sleeping too much: not at all 4. Feeling tired or having little energy: not at all 5. Poor appetite or overeating: not at all 6. Feeling bad about yourself - or that you are a failure or have let yourself or your family down: not at all 7. Trouble concentrating on things, such as reading the newspaper or watching television: not at all 8. Moving or speaking so slowly that other people could have noticed. Or the opposite - being so fidgety or restless that you have been moving around a lot more than usual: not at all 9. Thoughts that you would be better off or of hurting yourself in some way: not at all Total score: 0 Depression Screening Interpretation: Negative Depression Screening Done: Yes 17636 - PHQ-9 Billing: Yes Source: Developed by Drs. Naeem Garza, Belia Leone, Esa Amaral and colleagues, with an educational dino from [employer]. Review of Systems Const Denies poor appetite and Denies weakness Eyes Denies no additional complaints ENT Reports Normal hearing present, Denies dizziness, Denies nasal congestion, Denies tinnitus and Denies sore throat Card Denies chest pain, Denies syncope, Denies rapid heart rate and Denies dyspnea Resp Denies cough and Denies dyspnea GI Denies change in stool character, Reports constipation, Denies diarrhea, Denies nausea and Denies vomiting Denies urinary frequency, Denies difficulty voiding and Denies dysuria Neuro Reports Normal hearing present, Denies confusion, Denies dizziness, Denies syncope and Denies weakness Psych Denies confusion Physical Exam Vital Signs: Last Vital Signs Temp 97.1 F 11/20/24 13:14 Pulse 76 11/20/24 13:14 BP 114/62 11/20/24 13:14 Pulse Ox 96 11/20/24 13:14 Oxygen Delivery Method Room Air 11/20/24 13:14 BMI result Body Mass Index 25.6 Const General: alert; No acute distress or confusion Orientation/consciousness: No confusion Eyes Conjunctivae: conjunctivae normal Resp Auscultation: clear to auscultation bilaterally Cardio Rate: regular rate Rhythm: regular rhythm GI Inspection: Yes normal to inspection Neuro General: No confusion Cranial nerves: Yes Normal hearing present Extrem General: Yes normal to inspection and No edema Assessment & Plan Assessment & Plan (1) Medicare annual wellness visit, subsequent: Code(s): Z00.00 - Encounter for general adult medical examination without abnormal findings Plan: Patient is advised to eat healthy, keep well hydrated, keep active and have adequate sleep. (2) CVA (cerebral vascular accident): Comment: 2024 and 2017 Code(s): I63.9 - Cerebral infarction, unspecified Plan: Control the cholesterol, weight, blood pressure, continue with aspirin 81 mg once a day and clopidogrel 75 mg once a day (3) Hypercholesterolemia: Code(s): E78.00 - Pure hypercholesterolemia, unspecified Plan: Avoid fried foods, chicken skin, eggs, butter margarine, pastries and meat. Be it pork or beef they have a lot of cholesterol LDL goal of less than 70 and triglyceride of less than 150 on atorvastatin 40 mg once a day (4) Impaired fasting blood sugar: Code(s): R73.01 - Impaired fasting glucose Plan: Decrease the amount of carbohydrate intake, pasta, bread, rice and potatoes are all sugar and that is aside from all the sweet stuff, remember that fruits are good but they are Sweet also. (5) Generalized anxiety disorder: Code(s): F41.1 - Generalized anxiety disorder Plan: Continue with citalopram at 40 mg once a day (6) Varicose veins of right lower extremity with inflammation: Comment: 12/15/2023-right great saphenous vein Cyanoacralate ablation Code(s): I83.11 - Varicose veins of right lower extremity with inflammation Plan History of Present Illness The patient is a 79-year-old female presenting for a wellness visit and chronic disease management. Her medical history includes hypercholesterolemia managed with atorvastatin, resulting in controlled LDL levels. She has generalized anxiety disorder, treated with citalopram, and impaired glucose tolerance with a hemoglobin A1c of 5.7. Her peripheral vascular disease management includes past varicose vein ablation on the right side. She has a history of cerebrovascular accident with cognitive impairment, managed with clopidogrel and aspirin. Her recent MRI findings include an acute infarct in the right thalamus. Her diagnostic stress test showed mixed myocardial perfusion defects without significant EKG changes. She also has left carotid stenosis, but recent imaging indicates no occlusion or need for surgical intervention. 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 Preventive care measures include normal bone density exams and up-to-date colonoscopy, with mammogram screenings scheduled as per guidelines. Health Maintenance - Annual mammogram screening, last in November 2023 - Regular bone density scans, last normal in October 2021 - Completed colonoscopy screenings, with no immediate repeat required - Dietary recommendation for managing glucose, cholesterol, and hypertension - Exercise recommendations for balance improvement - Encourage vaccinations, including consideration of shingles vaccine Social History - Alcohol: Occasional consumption (approximately monthly glass of wine) - Exercise: Mentioned balancing exercises; prior discussions of yoga and laurence chi - Nutritional intake: Describes balanced, diet-focused eating habits with healthy changes for managing glucose levels - Smoking: Does not smoke - Substance use: Denied recreational drug use; discussed potential use of gummies for sleep Review of Systems - Neurological: Reports balance issues, denies dizziness or loss of consciousness - Cardiovascular: Denies chest pain or significant shortness of breath - Gastrointestinal: Reports occasional heartburn - Urological: Reports nocturia (two to four times at night) - Musculoskeletal: Denies recent falls or surgeries - General: Denies fever, nausea, or vomiting Physical Exam General: Cooperative, healthy appearing, comfortable, no acute distress and well developed Orientation: Patient oriented x3 Limitations: No limitations Head: Normal to inspection Ears: Hearing grossly normal bilaterally Nose: Normal external nose present Face and sinus: Normal facial exam Eyes: Appearance normal, both eyes and all related structures Neck: Normal visual inspection and Yes full ROM Respiratory: Normal respiratory effort and able to speak in complete sentences. Clear to auscultation bilaterally Cardiovascular: Regular rate and rhythm. Normal S1 and S2 GI: Normal to inspection. Soft to palpation and nontender Skin: No rashes or lesions noted Neuro: Patient oriented x3 Extremities: Normal to inspection Results - Labs: LDL 71, hemoglobin A1c 5.7, hemoglobin 11.8, creatinine 1.02, GFR 53-56 - Tests and Diagnostics: Normal bone density and mammogram; brain MRI indicating right thalamus infarct Plan I addressed the patient's existing chronic conditions, ensuring continuation of medication regimens for hypercholesterolemia, CVA management, and glucose control. Her vascular health is stable post-varicose vein ablation, with surgical intervention deemed unnecessary at present. I advised strict avoidance of NSAIDs to protect kidney function. Preventive measures discussed included exercise and nutrition changes, with an emphasis on maintaining current screenings like mammograms and considering additional vaccines like the shingles vaccine. Patient was informed and verbally consented to the use of an ambient scribe for clinic note documentation during this visit. Discussion Notes During our discussion, I detailed the current management of the patient's hypercholesterolemia with atorvastatin and emphasized continued cardiac risk reduction strategies, including clopidogrel and aspirin. The potential need for future vascular interventions was assessed, with her history of varicose veins reviewed. I explained avoiding NSAIDs due to their renal impact, stressing the safer use of acetaminophen. The pros and cons of the shingles vaccine were also addressed, noting its availability and potential benefits. She was advised to monitor her exercise program, including yoga or laurence chi, to support balance improved outcomes. Follow-up blood work in six months was recommended to evaluate her anemia, glucose, and renal function progression. Patient Instructions - Continue current medications as prescribed. - Schedule your mammogram if not yet done this year. - Engage in balance-improving exercises like yoga or laurence chi. - Avoid NSAIDs for pain relief; use acetaminophen instead. - Increase your water intake and maintain a balanced diet rich in vegetables. - Monitor your blood sugar levels regularly. - Follow up with preventive screenings as recommended. Orders: Orders Complete Blood Count Auto Diff 6 Months E78.00 - Pure hypercholesterolemia, unspecified Comprehensive Met. Panel 6 Months E78.00 - Pure hypercholesterolemia, unspecified Free T4 (Free Thyroxine) 6 Months E78.00 - Pure hypercholesterolemia, unspecified Ferritin 6 Months E78.00 - Pure hypercholesterolemia, unspecified Reticulocyte Count 6 Months E78.00 - Pure hypercholesterolemia, unspecified Uric Acid 6 Months E78.00 - Pure hypercholesterolemia, unspecified Vitamin B12 and Folate 6 Months E78.00 - Pure hypercholesterolemia, unspecified Lipid Panel 6 Months E78.00 - Pure hypercholesterolemia, unspecified Thyroid Stimulating Hormone 6 Months E78.00 - Pure hypercholesterolemia, unspecified Hemoglobin A1c 6 Months E78.00 - Pure hypercholesterolemia, unspecified Vitamin D 25-OH Total 6 Months E78.00 - Pure hypercholesterolemia, unspecified Quality Reporting (2019) Depression/Bipolar (159/160/161/177) PHQ-9: Total score: 0 Coding Level of Care Code Medicare Subsequent (G0439) Diagnoses Medicare annual wellness visit, subsequent Z00.00 CVA (cerebral vascular accident) I63.9 Hypercholesterolemia E78.00 Impaired fasting blood sugar R73.01 Generalized anxiety disorder F41.1 Varicose veins of right lower extremity with inflammation I83.11 Additional Codes PHQ-9 - 14555 - PHQ-9 Billing: Yes ([id number])
[2024-11-20 13:14] VITALS: BP 114/62; PULSE 76; TEMP 36.2; O2SAT 96; BMI 25.6
--- OUTSIDE RECORDS SUMMARY | 2024-11-20 14:26 | XMS_ITS | Clinical Summary ---
Author Organization [facility] Address [address] [place] [address] Care Team Providers Care 4 H Youth Development Specialist Name Role Phone Fabiano Mckeon MD Primary Care Provider [phone] Allergies Active Allergy Reactions Criticality Noted Date [...] age to complete this topic Care Teams 4 H Youth Development Specialist Relationship Specialty Start Date End Date Fabiano Mckeon MD [address] [place] [address] [address] [facility] [place] [address] PCP - General Internal Medicine 09/30/21
--- OUTSIDE RECORDS SUMMARY | 2024-11-20 14:27 | XMS_ITS | Continuity of Care Document ---
Author Organization [facility] Address [address] [place] [address], [address] [place] [address]- Care Team Providers Care Checker Loader Name Role Phone Po Fabiano NAVARRO Primary Care Physician Encounter [facility] Date(s): 10/16/24 - 11/15/24 [facility] [address] [facility] [place], [place] [address] Attending Physician: Mague Watt Admitting Physician: Mague Watt Referring Physician: Mague Watt Encounter Type: Triage Allergies, Adverse Reactions, Alerts Substance Criticality Severity Reaction Reaction Severity Status traMADol closing throat Facial swelling Active codeine stomach pain O/E - pain Active nitrofurantoin Hives Activ e aspirin stomach pain O/E - pain Active Bactrim Nausea Diarrhea Active morphine stomach pain, h eart palpitations O/E - pain Active Percocet 7.5/325 stomach daniel n O/E - pain Active Immunizations Given and Recorded Vaccine Date Status Refusal Reason SARS-CoV-2 (COVID-19) mRNA-1273 vaccine 10/14/20 G iven SARS-CoV-2 (COVID-19) mRNA-1273 vaccine 2421 G iven Medications aspirin 81 mg oral capsule 1 capsule = 81 mg, By Mouth, Daily, # 30 capsule, 0 Refills, Maintenance, 10/04/24 1:57:00 PM EDT, Capsule, Partial fill upon patient request if the prescription is for a schedule II opioid drug. Start Date: 10/04/24 Status: Ordered Quantity: 30.0 Unit: capsule Repeat number: 1 atorvastatin 40 mg oral tablet 1 tablet = 40 mg, By Mouth, Daily, 0 Refills, Maintenance, 10/04/24 1:56:00 PM EDT, Partial fill upon patient request if the prescription is for a schedule II opioid drug. Start Date: 10/04/24 Status: Ordered Repeat number: 1 Cipro 500 mg oral tablet 1 tablet [...] Date: 05/09/19 Status: Ordered Repeat number: 1 citalopram 40 mg oral tablet 40 mg, 1, tablet, By Mouth, Daily, # 30 tablet, Refills 0, Maintenance, 10/04/24 1:56:00 PM EDT, Partial fill upon patient request if the prescription is for a schedule II opioid drug. Start Date: 10/04/24 Status: Ordered Quantity: 30.0 Unit: tablet Repeat number: 1 clopidogrel 75 mg oral tablet 75 mg, 1, tablet, By Mouth, Daily, # 30 tablet, Refills 0, Maintenance, 10/04/24 1:56:00 PM EDT, Partial fill upon patient request if the prescription is for a schedule II opioid drug. Start Date: 10/04/24 Status: Ordered Quantity: 30.0 Unit: tablet Repeat number: 1 Estrace Vaginal Cream 0.1 mg/g = 1 Gm, Vaginally, Every Monday and Monday, # 42.5 Gm, 5 Refills, Maintenance, 08/07/24 12:05:00 PMEST, [facility]/pharmacy #[id number], Partial fill upon patient request if the [...] Quantity: 30.0 Unit: tablet Repeat number: 1 Gingko Biloba 0 Refills, Maintenance, 10/04/24 1:56:00 PM EDT, Partial fill upon patient request if the prescription is for a schedule II opioid drug. Start Date: 10/04/24 Status: Ordered Repeat number: 1 Mineral Oil By Mouth, Daily at bedtime, 0 Refills, Maintenance, 09/29/22 5:03:00 PM EST, Partial fill upon patient request if the prescription is for a schedule II opioid drug. Start Date: 09/29/22 Status: Ordered Repeat number: 1 nystatin topical [id number] u/gm ointment 1 application, Topically, 3 times a day, apply to affected area as directed, # 30 Gm, 1 Refills, Maintenance, 10/16/24 3:19:00 PM EDT, Ointment, [facility]/pharmacy #[id number], Partial fill upon patient request if the prescription is for a schedule II opioid drug., 1 application Topically 3 times a day,Instr:apply to affected area as directed, 169, cm, 06/10/24 16:59:00 EST, Height, 72.2, kg, 10/16/24 14:56:00 EDT, Dry Weight Start Date: 10/16/24 Status: Ordered Quantity: 30.0 Unit: g Repeat number: 2 Prevagen Estra Strength 50 mcg (2000 intl [...] 12.0 Unit: tablet Repeat number: 1 Vitamin C 500 mg oral tablet 1 tablet = 500 mg, By Mouth, 2 times a day, # 60 tablet, 2 Refills, Maintenance, 11/08/24 4:30:00 PMEDT, Tablet, [facility]/pharmacy #[id number], Partial fill upon patient request if the prescription is for a schedule II opioid drug., 169, cm, 06/10/24 16:59:00 EST, Height, 72.2, kg, 10/16/24 14:56:00 EDT, Dry Weight Start Date: 11/08/24 Status: Ordered Quantity: 60.0 Unit: tablet Repeat number: 3 Vitamin D3 1000 intl units oral capsule [...] Procedure Date Device Type Site Transvaginal Tape Shelby Miller MD 09/30/19 Unkn own Vagina Device Identifier Serial Number Lot or Batch Number Manufacturing Date Expiration Date Distinct Identification Code MRI Safety Implantable Status Assigning Authority [id number] Unknown [id number] Unknown 08/08/22 Unknown Unknown Active GS1 Patient Care team information Care Team Personnel Name: Flako Lux RN Position: Wendi RN Member Role: Primary Care Nurse Name: Fabiano Mckeon MD Position: Reference Physician Member Role: PCP Address: [address] [place] [address] Telecom: Care Team Related Persons Name: LOVE BERNSTEIN Name: THOMAS NIETO Name: [id number] RELATIONSHIP BEING BRYANT, [id number] RELATIONSHIP Insurance Providers Guarantor name: NA Health Plan Information #: 1 Payer: MEDICARE PART B OUTPT Member Number: NA Policy Number: NA Group Number: NA
== END 2024-11-20 14:18 | disposition home or self-care (01) ==
LOC: HO.HMCH 13:09
PROVIDERS: PCP Internal Medicine; Visit Provider Internal Medicine
DX: Z00.00 Encounter for general adult medical examination without abnormal findings (principal); I63.9 Cerebral infarction, unspecified; E78.00 Pure hypercholesterolemia, unspecified; R73.01 Impaired fasting glucose; F41.1 Generalized anxiety disorder; I83.11 Varicose veins of right lower extremity with inflammation

== ENCOUNTER → 2024-11-20 13:08 | Outpatient (BNVA) | payer MEDICARE, MEDICAID, SELFPAY | PROVIDERS: PCP Internal Medicine; Visit Provider Internal Medicine | DX: Z00.00 Encounter for general adult medical examination without abnormal findings (principal); I63.9 Cerebral infarction, unspecified; E78.00 Pure hypercholesterolemia, unspecified; F41.1 Generalized anxiety disorder; R73.01 Impaired fasting glucose; I83.11 Varicose veins of right lower extremity with inflammation | CPT/HCPCS: 96127 ==

== ENCOUNTER 2024-12-30 14:35 | Outpatient (REF) | payer MEDICARE, MEDICAID, SELFPAY ==
--- OUTSIDE RECORDS SUMMARY | 2024-12-30 16:25 | XMS_ITS | Patient Health Record ---
Author Organization [facility] Address [address] [place] [address] Care Team Providers Care Dye Winch Operator Name Role Phone Fabiano Mckeon MD Primary Care Provider Prem Coe Jr Unavailable Allergies Allergen (clinical drug ingredient) Drug/Non Drug [...] Problem Status W/U Status Risk Notes Problem [id number] Rectal bleeding (K62.5) Active confirmed Problem [id number] Gastroesophageal reflux disease without esophagitis (K21.9) Active confirmed Problem [id number] Irritable bowel syndrome with both constipation and diarrhea (K58.2) Active confirmed Plan Of Treatment Future Test Test Name Order Date COLONOSCOPY 04/29/2015 Insurance Providers Payer Name Payer Address Payer Phone Subscriber Number Group Number Insured Name Patient Relationship to Insured Coverage Start Date Coverage End Date MEDICARE OF [place] [address] [place] [id number] LILY VENCES Self - patient is the insured [facility] [address] [place] [phone] [id number] LILY VENCES Self - patient is the insured Medical (General) History Medical History History ICD Code tubular adenoma 09/26, last colonoscopy , no adenomas. elevated cholesteroll hiatal hernia reflux disease chest pain SOB Surgical History Surgery Date(Month/Year) cholecystectomy hysterectomy knee surgery hand surgery scoped shoulders
== END 2024-12-30 14:36 | disposition home or self-care (01) ==
LOC: HO.MAMMO 14:35
PROVIDERS: PCP Internal Medicine; Visit Provider Internal Medicine
DX: Z12.31 Encounter for screening mammogram for malignant neoplasm of breast (principal)
CPT/HCPCS: 77063; 77067

== ENCOUNTER → 2024-12-30 14:45 | Outpatient (BNV) | payer MEDICARE, MEDICAID, SELFPAY | PROVIDERS: PCP Internal Medicine; Visit Provider Internal Medicine | DX: Z12.31 Encounter for screening mammogram for malignant neoplasm of breast (principal) | CPT/HCPCS: 77063; 77067 ==

== ENCOUNTER 2025-03-19 15:49 | Outpatient (AMB) | payer MEDICARE, MEDICAID, SELFPAY ==
--- OUTSIDE RECORDS SUMMARY | 2025-03-19 16:58 | XMS_ITS | Patient Health Record ---
Author Organization [facility] Address [address] [place] [address] Care Team Providers Care Loss Prevention Specialist Name Role Phone Fabiano Mckeon MD [...] Problem Status W/U Status Risk Notes Problem [id number] Rectal bleeding (K62.5) Active confirmed Problem 418844000 Gastroesophageal reflux disease without esophagitis (K21.9) Active confirmed Problem 27593655 Irritable bowel syndrome with both constipation and diarrhea (K58.2) Active confirmed Plan Of Treatment Future Test Test Name Order Date COLONOSCOPY 04/29/2015 Insurance Providers Payer Name Payer Address Payer Phone Subscriber Number Group Number Insured Name Patient Relationship to Insured Coverage Start Date Coverage End Date MEDICARE OF [place] [address] [place] [id number] LILY VENCES Self - patient is the insured MEDICAID OF [employer] [address] [place] [phone] [id number] LILY VENCES Self - patient is the insured Medical (General) History Medical History History ICD Code tubular adenoma 09/26, last colonoscopy , no adenomas. elevated cholesteroll hiatal hernia reflux disease chest pain SOB Surgical History Surgery Date(Month/Year) cholecystectomy hysterectomy knee surgery hand surgery scoped shoulders
--- OUTSIDE RECORDS SUMMARY | 2025-03-19 16:58 | XMS_ITS | Clinical Summary ---
Author Organization [facility] Address [address] [place] [address] Care Team Providers Care Director Of Curriculum Name Role Phone Fabiano Mckeon MD Primary Care Provider [phone] Allergies Active Allergy Reactions Criticality Noted Date [...] 1-dose 75+ series) 2022 Influenza Vaccine (#1) 2025 Hepatitis B Vaccines Aged Out No long er eligible based on patient's age to complete this topic RSV Ped < 20 months Aged Out No longe r eligible based on patient's age to complete this topic Care Teams Director Of Curriculum Relationship Specialty Start Date End Date Fabiano Mckeon MD [address] [place] [address] [address] [facility] [place] [address] PCP - General Internal Medicine 09/30/21
== END 2025-03-19 15:54 | disposition home or self-care (01) ==
LOC: HO.HMGAL 15:49
PROVIDERS: PCP Internal Medicine; Visit Provider Registered Nurse Emergency
DX: J30.89 Other allergic rhinitis (principal)
CPT/HCPCS: 95117; 95165

== ENCOUNTER 2025-04-02 16:09 | Outpatient (AMB) | payer MEDICARE, MEDICAID, SELFPAY ==
--- OUTSIDE RECORDS SUMMARY | 2025-04-02 18:37 | XMS_ITS | Clinical Summary ---
Author Organization [facility] Address [address] [place] [address] Care Team Providers Care Charge Entry Clerk Name Role Phone Fabiano Mckeon MD Primary Care Provider [phone] Allergies Active Allergy Reactions Criticality Noted Date [...] age to complete this topic Care Teams Charge Entry Clerk Relationship Specialty Start Date End Date Fabiano Mckeon MD [address] [place] [address] [address] [facility] [place] [address] PCP - General Internal Medicine 09/30/21
--- OUTSIDE RECORDS SUMMARY | 2025-04-02 18:37 | XMS_ITS | Patient Health Record ---
Author Organization [facility] Address [address] [place] [address] Care Team Providers Care Bingo Caller Name Role Phone Fabiano Mckeon MD Primary [...] Problem Status W/U Status Risk Notes Problem [id number] Rectal bleeding (K62.5) Active confirmed Problem 634011505 Gastroesophageal reflux disease without esophagitis (K21.9) Active confirmed Problem 07982070 Irritable bowel syndrome with both constipation and diarrhea (K58.2) Active confirmed Plan Of Treatment Future Test Test Name Order Date COLONOSCOPY 04/29/2015 Insurance Providers Payer Name Payer Address Payer Phone Subscriber Number Group Number Insured Name Patient Relationship to Insured Coverage Start Date Coverage End Date MEDICARE OF [place] [address] [place] [id number] LILY VENCES Self - patient is the insured MEDICAID OF [facility] [address] [place] [phone] [id number] LILY VENCES Self - patient is the insured Medical (General) History Medical History History ICD Code tubular adenoma 09/26, last colonoscopy , no adenomas. elevated cholesteroll hiatal hernia reflux disease chest pain SOB Surgical History Surgery Date(Month/Year) cholecystectomy hysterectomy knee surgery hand surgery scoped shoulders
== END 2025-04-02 16:22 | disposition home or self-care (01) ==
LOC: HO.HMGAL 16:10
PROVIDERS: PCP Internal Medicine; Visit Provider Registered Nurse Emergency
DX: J30.89 Other allergic rhinitis (principal)
CPT/HCPCS: 95117; 95165

== ENCOUNTER 2025-04-28 16:16 | Outpatient (AMB) | payer MEDICARE, SELFPAY ==
--- OUTSIDE RECORDS SUMMARY | 2025-04-28 18:27 | XMS_ITS | Clinical Summary ---
Author Organization [facility] Address [address] [place] [address] Care Team Providers Care Forklift Supervisor Name Role Phone Fabiano Mckeon MD Primary Care Provider [phone] Allergies Active Allergy Reactions Criticality Noted Date [...] age to complete this topic Care Teams Forklift Supervisor Relationship Specialty Start Date End Date Fabiano Mckeon MD [address] [place] [address] [address] [facility] [place] [address] PCP - General Internal Medicine 09/30/21
== END 2025-04-28 16:16 | disposition home or self-care (01) ==
LOC: HO.HMGAL 16:16
PROVIDERS: PCP Internal Medicine; Visit Provider Registered Nurse Emergency
DX: J30.89 Other allergic rhinitis (principal)
CPT/HCPCS: 95117; 95165

== ENCOUNTER 2025-05-07 11:01 | Outpatient (AMB) | payer MEDICARE, SELFPAY ==
--- NOTE | 2025-05-07 11:04 | MHC.OFFVIS ---
Intake Visit Reasons: 6mnth MCI Allergies tramadol (TRAMADOL) Allergy (Severe, Verified 11/20/24 13:11) THROAT SWELLING morphine (MORPHINE) Allergy (Intermediate, Verified 11/20/24 13:11) JITTERY, pain nitrofurantoin (From MACROBID) Allergy (Intermediate, Verified 11/20/24 13:11) HIVES codeine (CODEINE) Allergy (Unknown, Verified 11/20/24 13:11) pain oxycodone (Percocet) Allergy (Unknown, Verified 11/20/24 13:11) pain Sulfa (Sulfonamide Antibiotics) Allergy (Unknown, Verified 11/20/24 13:11) Nausea, diarrhea mirabegron (From Myrbetriq) Adverse Reaction (Intermediate, Verified 11/20/24 13:11) Dizziness sulfamethoxazole (From BACTRIM) Adverse Reaction (Intermediate, Verified 11/20/24 13:11) NAUSEA/DIARRHEA trimethoprim (From BACTRIM) Adverse Reaction (Intermediate, Verified 11/20/24 13:11) NAUSEA/DIARRHEA Propoxyphene HCl Allergy (Unknown, Uncoded 11/20/24 13:11) Unknown From DARVOCET-N 100 Adverse Reaction (Intermediate, Uncoded 11/20/24 13:11) ABD PAIN - NAUSEA HPI Comments Details: The patient is a 79-year-old female with bilateral knee replacement, cerebral microvascular disease, and mild cognitive impairment who was presenting with dizziness and impaired balance. The dizziness is especially pronounced when bending down, resulting in a spinning sensation that requires her to hold on for stability. This condition, termed vertigo in our discussions, has been challenging for the patient due to its unpredictability and impact on her safety and mobility. Mitigating factors include holding onto something to prevent falls, consistent with her compensatory measures for vertigo. The patient denies any changes in cognition or loss of awareness during these dizzy spells, though she occasionally experiences issues with focusing. She has a notable history of osteoarthritis impacting both knees, which have been replaced but still cause discomfort, possibly due to ongoing arthritis rather than the past deep vein thrombosis she experienced. The patient also takes medications for anxiety and cholesterol management, expressing a need to stop clopidogrel per our discussion. [facility] Medical History (Updated 05/07/25 @ 11:18 by Colton Latif MD) Dyspnea on exertion Left carotid stenosis Abnormal stress ECG Age-related osteoporosis without current pathological fracture Right leg pain Screening for breast cancer Overactive bladder Degenerative disc disease, lumbar Allergic rhinitis Mixed incontinence Hypercholesterolemia Vitamin D deficiency Surgical History Status post ablation of incompetent vein using laser (12/15/23) History of cataract surgery History of arthroscopy of left knee History of shoulder surgery History of hysterectomy History of cholecystectomy Family History Father Diabetes Myocardial infarction Heart disease Mother Heart disease Chronic mental illness Stomach cancer Sister Esophageal cancer Brother Esophageal cancer Paternal Grandfather Heart disease Social History Household Members: None Household Members Other:: neighbors check on her on a regular basis Housing: Other Housing Other:: two family Alcohol intake: current Alcohol intake frequency: holidays/special occasions only Comment: glass of wine once a month Patient Tobacco Use Status: Former Tobacco user e-Cigarette/Vaping Use: Never Used Second Hand Smoke Exposure: No service: No Current occupational status: retired Cognitive needs: No Hearing needs: No Vision needs: Yes Review of Systems Const Details: - Neurological: Reports dizziness, impaired balance, episodes of vertigo - Eyes: Reports issues focusing, describes eyes as crazy lately - Ears: Reports itchy ears; denies ear pressure or infection - Musculoskeletal: Reports bilateral knee pain post-replacement - Psychiatric: Reports anxiety, no current confusion - Cardiovascular: Denies history of hypertension or arrhythmia - Metabolic: Denies diabetes - Hematologic: Reports history of deep vein thrombosis Physical Exam Neuro Other: Mental Status: Alert and oriented to person, place, and time. Normal attention. Normal spontaneous speech, fluency, and comprehension. She is moderately anxious. Cranial Nerves: CN II: Visual infante full to confrontation, visual acuity intact. CN III, IV, : Pupils equal, round, reactive to light and accommodation. Extraocular movements are normal. CN V: Facial sensation is normal. CN VII: Facial movements symmetrical. CN VIII: Hearing intact to bedside conversation is normal. CN IX, X: Palate elevates symmetrically. CN XI: Shoulder shrug and head turn symmetrical. CN XII: Tongue midline without atrophy or fasciculations. Deep tendon reflexes are absent. Gait is cautious. Romberg is positive Extrapyramidal: Full facial expressions and blinking. No rigidity. Movements are appropriate with no tremor or abnormality. Speech: Normal; no dysarthria or tremor. Assessment & Plan Assessment & Plan (1) MCI (mild cognitive impairment): Comment: [place] [facility] [place] [facility] [place]A? 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, mild underlying MVD, mild atrophy CT brain WO [place] [facility] [place]: Mild diff atrophy Code(s): G31.84 - Mild cognitive impairment of uncertain or unknown etiology Category: Medical (2) Cerebral microvascular disease: Code(s): I67.89 - Other cerebrovascular disease Category: Medical (3) Peripheral neuropathy: Code(s): G62.9 - Polyneuropathy, unspecified Category: Medical Qualifiers: Peripheral neuropathy type: polyneuropathy, unspecified Qualified Code(s): G62.9 - Polyneuropathy, unspecified (4) Benign positional vertigo: Code(s): H81.10 - Benign paroxysmal vertigo, unspecified ear Category: Medical Qualifiers: Laterality: unspecified laterality Qualified Code(s): H81.10 - Benign paroxysmal vertigo, unspecified ear Plan Impression: a: Multifactorial gait disorder b: BPPV c: Peripheral neuropathy d: MCI e: Cerebral microvascular disease of brain Rec: a: Education b: EMG/NCS legs c: Common sense measures to avoid falls d: Aspirin 81mg daily Orders: Orders NE nerve conduction velocity Today G62.9 - Polyneuropathy, unspecified NE electromyogram (EMG) Today G62.9 - Polyneuropathy, unspecified Medications: Discontinued clopidogrel Discontinued Reason: Doctor's Order 75 mg PO DAILY 90 tabs 0RF Coding Level of Care Code Est Pt Level 4 (67234) Diagnoses MCI (mild cognitive impairment) G31.84 Cerebral microvascular disease I67.89 Peripheral polyneuropathy G62.9 Peripheral neuropathy type: polyneuropathy, unspecified Benign paroxysmal positional vertigo, unspecified laterality H81.10 Laterality: unspecified laterality
--- OUTSIDE RECORDS SUMMARY | 2025-05-07 13:33 | XMS_ITS | Clinical Summary ---
Author Organization [facility] Address [address] [place] [address] Care Team Providers Care Vegetable Thinner Name Role Phone Fabiano Mckeon MD Primary Care Provider [phone] Allergies Active Allergy Reactions Criticality Noted Date [...] age to complete this topic Care Teams Vegetable Thinner Relationship Specialty Start Date End Date Fabiano Mckeon MD [address] [place] [address] [address] [facility] [place] [address] PCP - General Internal Medicine 09/30/21
--- OUTSIDE RECORDS SUMMARY | 2025-05-07 13:33 | XMS_ITS | Patient Health Record ---
Author Organization [facility] Address [address] [place] [address] Care Team Providers Care Peer Support Specialist Name Role Phone Fabiano Mckeon MD [...] Problem Status W/U Status Risk Notes Problem Rectal bleeding (27912460) Rectal bleeding (K62.5) Active confirmed Problem Gastroesophageal reflux disease without esophagitis (575077624) Gastroesophageal reflux disease without esophagitis (K21.9) Active confirmed Problem Irritable bowel syndrome (01911320) Irritable bowel syndrome with both constipation and diarrhea (K58.2) Active confirmed Plan Of Treatment Future Test Test Name Order Date COLONOSCOPY 04/29/2015 Insurance Providers Payer Name Payer Address Payer Phone Subscriber Number Group Number Insured Name Patient Relationship to Insured Coverage Start Date Coverage End Date MED[place]ARE OF [place] [address] [place] [id number] JACKIE VENCESAN Self - patient is the insured MEDICAID OF [facility] [address] [place] [phone] [id number] VANGIEJACKIEAN Self - patient is the insured Medical (General) History Medical History History ICD Code tubular adenoma 09/26, last colonoscopy , no adenomas. elevated cholesteroll hiatal hernia reflux disease chest pain SOB Surgical History Surgery Date(Month/Year) cholecystectomy hysterectomy knee surgery hand surgery scoped shoulders
== END 2025-05-07 11:31 | disposition home or self-care (01) ==
LOC: HO.HSM 11:01
PROVIDERS: PCP Internal Medicine; Referring Provider Internal Medicine; Visit Provider Psychiatry & Neurology Neurology
DX: G31.84 Mild cognitive impairment of uncertain or unknown etiology (principal); I67.89 Other cerebrovascular disease; G62.9 Polyneuropathy, unspecified; H81.10 Benign paroxysmal vertigo, unspecified ear
CPT/HCPCS: 99214

== ENCOUNTER → 2025-05-07 11:01 | Outpatient (BNVA) | payer MEDICARE, SELFPAY | PROVIDERS: PCP Internal Medicine; Referring Provider Internal Medicine; Visit Provider Psychiatry & Neurology Neurology | DX: G31.84 Mild cognitive impairment of uncertain or unknown etiology (principal); G62.9 Polyneuropathy, unspecified; H81.10 Benign paroxysmal vertigo, unspecified ear; R26.89 Other abnormalities of gait and mobility | CPT/HCPCS: 99212 ==

== ENCOUNTER 2025-05-07 12:00 | Outpatient (AMB) | payer MEDICARE, SELFPAY | END 2025-05-07 12:00 | disposition home or self-care (01) | LOC: HO.HMGAL 12:00 | PROVIDERS: PCP Internal Medicine; Visit Provider Registered Nurse Emergency | DX: J30.89 Other allergic rhinitis (principal) | CPT/HCPCS: 95117; 95165 ==

== ENCOUNTER 2025-05-21 13:14 | Outpatient (AMB) | payer MEDICARE, SELFPAY ==
[2025-05-21 13:20] VITALS: BP 116/72; PULSE 78; TEMP 36.1; O2SAT 96; BMI 26.3
--- NOTE | 2025-05-21 13:20 | MHC.PC.OV ---
Vital Signs 05/21/25 13:20 Height 5 ft 5 in Weight 158 lb 4 oz BMI 26.3 BP 116/72 Blood Pressure Location Lt brachial Position Sitting Pulse 78 Pulse Source Pulse Oximeter Temp 97.0 F Temp Source Temporal Artery Scan Pulse Oximetry (%) 96 Oxygen Delivery Method Room Air Intake Visit Reasons: Cerebrovascular accident Allergies tramadol (TRAMADOL) Allergy (Severe, Verified 05/21/25 13:23) THROAT SWELLING morphine (MORPHINE) Allergy (Intermediate, Verified 05/21/25 13:23) JITTERY, pain nitrofurantoin (From MACROBID) Allergy (Intermediate, Verified 05/21/25 13:23) HIVES codeine (CODEINE) Allergy (Unknown, Verified 05/21/25 13:23) pain oxycodone (Percocet) Allergy (Unknown, Verified 05/21/25 13:23) pain Sulfa (Sulfonamide Antibiotics) Allergy (Unknown, Verified 05/21/25 13:23) Nausea, diarrhea mirabegron (From Myrbetriq) Adverse Reaction (Intermediate, Verified 05/21/25 13:23) Dizziness sulfamethoxazole (From BACTRIM) Adverse Reaction (Intermediate, Verified 05/21/25 13:23) NAUSEA/DIARRHEA trimethoprim (From BACTRIM) Adverse Reaction (Intermediate, Verified 05/21/25 13:23) NAUSEA/DIARRHEA Propoxyphene HCl Allergy (Unknown, Uncoded 05/21/25 13:23) Unknown From DARVOCET-N 100 Adverse Reaction (Intermediate, Uncoded 05/21/25 13:23) ABD PAIN - NAUSEA Medication List - Last Reconciled 05/21/25 by Fabiano Mckeon MD aspirin 81 mg PO DAILY atorvastatin 40 mg PO BEDTIME cholecalciferol (vitamin D3) 25 mcg PO DAILY citalopram 40 mg PO DAILY estradiol 0.01%(0.1mg/gram) 1 g vaginal TUFR@0900 estradiol 0.5 mg PO DAILY [gingko PO] melatonin 3 mg PO BEDTIME methenamine hippurate 1 g PO BID Tobacco use date assessed: 05/21/25 Fall risk assessment: No Falls in past year Last assessed Fall Risk: 05/21/25 Dental Screening Dental Screen Date: 05/21/25 Did you have a dental visit in the last 12 months?: No Did you have a dental problem in the last 6 months where you did not have access to dental care?: No Was dental information given to patient?: No PFSH Medical History Peripheral polyneuropathy Dyspnea on exertion Left carotid stenosis Abnormal stress ECG Age-related osteoporosis without current pathological fracture Right leg pain Screening for breast cancer Overactive bladder Degenerative disc disease, lumbar Allergic rhinitis Mixed incontinence Hypercholesterolemia Vitamin D deficiency Surgical History Status post ablation of incompetent vein using laser (12/15/23) History of cataract surgery History of arthroscopy of left knee History of shoulder surgery History of hysterectomy History of cholecystectomy Family History Father Diabetes Myocardial infarction Heart disease Mother Heart disease Chronic mental illness Stomach cancer Sister Esophageal cancer Brother Esophageal cancer Paternal Grandfather Heart disease Social History Household Members: None Household Members Other:: neighbors check on her on a regular basis Housing: Other Housing Other:: two family Alcohol intake: current Alcohol intake frequency: holidays/special occasions only Comment: glass of wine once a month Patient Tobacco Use Status: Former Tobacco user e-Cigarette/Vaping Use: Never Used Second Hand Smoke Exposure: No service: No Current occupational status: retired Cognitive needs: No Hearing needs: No Vision needs: Yes Questionnaire PHQ-9 Over the last 2 weeks, how often have you been bothered by any of the following problems? 1. Little interest or pleasure in doing things: more than half the days 2. Feeling down, depressed, or hopeless: several days 3. Trouble falling or staying asleep, or sleeping too much: several days 4. Feeling tired or having little energy: several days 5. Poor appetite or overeating: not at all 6. Feeling bad about yourself - or that you are a failure or have let yourself or your family down: not at all 7. Trouble concentrating on things, such as reading the newspaper or watching television: more than half the days 8. Moving or speaking so slowly that other people could have noticed. Or the opposite - being so fidgety or restless that you have been moving around a lot more than usual: not at all 9. Thoughts that you would be better off or of hurting yourself in some way: not at all Total score: 7 Source: Developed by Drs. Naeem Garza, Belia Leone, Esa Amaral and colleagues, with an educational dino from [employer]. Thrive Questionnaire Date Thrive assessed: 09/15/24 I am a: Patient What is your living situation today?: I have a steady place to live Within the past 12 months, did the food you bought not last and you didn't have the money to get more?: Often true Within the past 12 months, did you worry whether your food would run out before you got money to buy more?: Sometimes True Do you have trouble paying for medicines?: No Do you have trouble getting transportation to medical appointments?: No Do you have trouble paying your heating and electricity bill?: Yes Do you have trouble taking care of your child, family member or friend?: No Do you have trouble with day-to-day activities such as bathing, preparing meals, shopping, managing finances, etc.?: No Are you currently unemployed and looking for a job?: No Are you interested in more education?: No Please select the resources that you would like help with: None Currently or been in a relationship where the following occur: No concerns reported THRIVE Score: 3 AUDIT C Alcohol Use Questionnaire (AUDIT-C) 1. How often do you have a drink containing alcohol?: Monthly or less 2. How many drinks containing alcohol do you have on a typical day when you are drinking?: 1 or 2 3. How often do you have six or more drinks on one occasion?: Never Total Score: 1 TEZ-7 AMB Questionnaire TEZ-7 Date TEZ - 7 assessed: 09/23/24 Feeling nervous, anxious, or on edge: 2 = More than half the days Not being able to stop or control worryin = More than half the days Worrying too much about different things: 2 = More than half the days Trouble relaxin = More than half the days Being so restless that it is hard to sit still: 0 = Not at all Becoming easily annoyed or irritable: 0 = Not at all Feeling afraid as if something awful might happen: 2 = More than half the days Total TEZ-7 score (0-4 normal; 5-9 mild; 10-14 moderate; 15-21 severe): 10 Source: Developed by Drs. Naeem Garza, Belia Leone, Esa Amaral and colleagues, with an educational dino from [employer]. Physical exam (Primary Care) Vital Signs: Last Vital Signs Temp 97.0 F 05/21/25 13:20 Pulse 78 05/21/25 13:20 BP 116/72 05/21/25 13:20 Pulse Ox 96 05/21/25 13:20 Oxygen Delivery Method Room Air 05/21/25 13:20 BMI result Body Mass Index 26.3 Tobacco/Smoking Status: Tobacco use Status Tobacco use date assessed 05/21/25 05/21/25 13:25 Patient Tobacco Use Status Former Tobacco user 05/21/25 13:25 e-Cigarette/Vaping Use Never Used 05/21/25 13:25 PHQ-9: PHQ-9 Score PHQ-9: Total score 7 05/21/25 13:25 Thrive Assessment: Date of Thrive Assessment Date Thrive assessed 09/15/24 05/21/25 13:25 Currently or been in a relationship where the following occur: No concerns reported Const General: alert; No acute distress Eyes Conjunctivae: conjunctivae normal Resp Auscultation: clear to auscultation bilaterally Cardio Rate: regular rate Rhythm: regular rhythm GI Inspection: Yes normal to inspection Extrem General: Yes normal to inspection and No edema Coding Level of Care Code Est Pt Level 4 (21856) Diagnoses Impaired fasting blood sugar R73.01 Hypercholesterolemia E78.00 CVA (cerebral vascular accident) I63.9 MCI (mild cognitive impairment) G31.84 Peripheral polyneuropathy G62.9 Bilateral finger numbness R20.0 Assessment & Plan Assessment & Plan (1) Impaired fasting blood sugar: Code(s): R73.01 - Impaired fasting glucose Category: Medical Plan: Decrease the amount of carbohydrate intake, pasta, bread, rice and potatoes are all sugar and that is aside from all the sweet stuff, remember that fruits are good but they are Sweet also. (2) Hypercholesterolemia: Code(s): E78.00 - Pure hypercholesterolemia, unspecified Category: Medical Plan: Avoid fried foods, chicken skin, eggs, butter margarine, pastries and meat. Be it pork or beef they have a lot of cholesterol patient has been placed on atorvastatin 40 mg once a day LDL in October was 71. Will ask for another blood work in the next few months (3) CVA (cerebral vascular accident): Comment: 2024 and 2017 Code(s): I63.9 - Cerebral infarction, unspecified Category: Medical Plan: Control the cholesterol, weight, blood pressure, started on aspirin 81 mg once a day (4) MCI (mild cognitive impairment): Comment: [place] [facility] [place]: [place]TE [place] [facility] [place]: [place]A? neck [place] [facility] [place] 20[place]: No sig stenosis NICS at [facility] [place] [place] 2024: 50-79% R and less than 50% L ICA stenosis MRI brain WO at [facility] [place] in Aug 2024: Small R post limb IC acute ischemic infarct, mild underlying MVD, mild atrophy CT brain WO at [facility] in Aug 2024: Mild diff atrophy Code(s): G31.84 - Mild cognitive impairment of uncertain or unknown etiology Category: Medical Plan: Continue to be active (5) Peripheral polyneuropathy: Code(s): G62.9 - Polyneuropathy, unspecified Category: Medical Plan: Patient has a schedule testing for nerve conduction test (6) Bilateral finger numbness: Code(s): R20.0 - Anesthesia of skin Category: Medical Plan History of Present Illness The patient is a 79-year-old female presenting for a follow-up visit. Her past medical history is significant for hypercholesterolemia, lumbar degenerative disc disease, generalized anxiety disorder, impaired glucose tolerance, peripheral vascular disease, and a cerebrovascular accident. She carries a diagnosis of mild cognitive impairment and was seen by neurology on May 07 for vertigo. Neurology ordered a nerve conduction test for the lower extremities and switched her medication from Plavix to aspirin. The patient is currently experiencing numbness in her hands and feet. Recent blood work from August showed anemia with a hemoglobin of 11.8 and hematocrit of 37.2. Labs from October were notable for a stable creatinine of 1.02, hemoglobin A1c of 5.7%, and an LDL of 71 mg/dL. Her last bone density scan in October 2021 was normal, and her mammogram is up to date. The patient reports feeling exhausted and depressed, with some days being unable to get out of bed. She is taking citalopram but is unsure if it is helping. She also receives allergy injections. Health Maintenance A lab request has been placed for fasting blood work to monitor cholesterol and glucose. The shingles and flu vaccines were discussed, but the patient deferred both. The patient also declined a follow-up bone density scan. She was encouraged to stay active and increase her water intake. Social History - Family: The patient has three grandchildren and one great-grandson, who is 3 years old. - Pets: She has dogs that she cares for, which provides motivation for her to get out of bed. - Functional status: The patient is ambulatory and does not use a cane. - Level of activity: She stays active by taking her dogs out into the yard and running errands. - Nutritional intake: She is attempting to drink more water and less coffee. Review of Systems - Constitutional: Reports exhaustion and fatigue, leading to increased time in bed. - Psychiatric: Reports feeling depressed. - Neurological: Reports vertigo, poor balance, and numbness in her hands and feet. - Musculoskeletal: Reports arthritis pain. - Allergic/Immunologic: Reports receiving allergy injections. Physical Exam - Pulmonary: Lungs were auscultated. Results - Labs (August): CBC showed anemia with hemoglobin 11.8 g/dL and hematocrit 37.2%. - Labs (October): Electrolytes normal; creatinine stable at 1.02 mg/dL; hemoglobin A1c 5.7%; liver function tests were normal; LDL cholesterol 71 mg/dL; folic acid and thyroid levels were within normal limits. - Urinalysis (October): Normal. - Procedures: Bone density scan in October 2021 was normal. - Imaging: Mammogram is up to date until December 2024. Plan Patient was informed and verbally consented to the use of an ambient scribe for clinic note documentation during this visit. 1. Hypercholesterolemia The patient will continue atorvastatin 40 mg once daily. Her last LDL was 71 mg/dL in October, which is near the goal. A fasting lipid panel will be checked in the next few months to monitor. 2. Impaired Glucose Tolerance The patient's last hemoglobin A1c was 5.7%, indicating prediabetes. A fasting blood glucose will be checked along with her upcoming labs. The patient was advised to remain active. 3. Cerebrovascular Disease / Cva Prevention The patient will continue aspirin 81 mg once a day for secondary prevention, which was a change from a previous regimen. 4. Peripheral Neuropathy And Vertigo To evaluate her symptoms of numbness in the feet and imbalance, she will proceed with the nerve conduction test for the lower extremities as scheduled by neurology. Due to new complaints of numbness in her hands, a nerve conduction test for the upper extremities will also be requested. The patient was informed that the test involves needles. 5. Generalized Anxiety Disorder / Depression The patient reported feeling exhausted and depressed, and she is unsure if her current medication, citalopram, is effective. A referral to a counselor and an outpatient psychiatric nurse for medication management was offered, but the patient declined at this time, stating she will call if she changes her mind. Discussion Notes I reviewed the patient's recent lab work, noting her LDL of 71 mg/dL is very close to goal and her hemoglobin A1c of 5.7% indicates prediabetes. I explained that we would order a new fasting blood test to monitor these values. We discussed her neurological symptoms of vertigo and numbness in her hands and feet. I confirmed she is scheduled for a nerve conduction test for her lower extremities and explained that I would also request a test for her hands. I informed her that the test is not pleasant and involves needles but is the best method for evaluating her nerves. The patient expressed feelings of depression and exhaustion. I offered a referral to a counselor or a psychiatric nurse to help manage her symptoms and medication, but she wished to wait and will call if she changes her mind. I reviewed preventative health measures, including the shingles and flu vaccines, which she declined. I also offered a repeat bone density scan, as her last one was in 2021, but she declined this as well. I advised her to stay active and increase her water intake. Patient Instructions - Please go to the lab for a fasting blood test to check your cholesterol and sugar levels; do not eat before the test. - Continue taking your atorvastatin for cholesterol and aspirin 81 mg as prescribed. - Proceed with your scheduled nerve test for your legs. - We will also request a nerve test for your hands to check for the numbness. - Please be aware that the nerve tests use small needles to check how your nerves are working. - Continue to stay as active as possible. - Try to drink more water and less coffee. - If you feel you would like to talk to a counselor about your mood, please call our office to set up a referral. - The shingles vaccine is available for you at the pharmacy if you decide you want to get it. Orders: Orders NE electromyogram (EMG) Today R20.0 - Anesthesia of skin NE nerve conduction velocity Today R20.0 - Anesthesia of skin
--- OUTSIDE RECORDS SUMMARY | 2025-05-21 16:49 | XMS_ITS | Patient Health Record ---
[facility] Address [address] [place] [address] Care Team Providers Care Shingle Bolt Cutter Name Role Phone Fabiano Mckeon MD Primary Care Provider Prem Coe Jr Unavailable [phone] Allergies Allergen (clinical drug ingredient) Drug/Non [...] W/U Status Risk Notes Problem Rectal bleeding (90721089) Rectal bleeding (K62.5) Active confirmed Problem Gastroesophageal reflux disease without esophagitis (965124895) Gastroesophageal reflux disease without esophagitis (K21.9) Active confirmed Problem Irritable bowel syndrome (53585175) Irritable bowel syndrome with both constipation and diarrhea (K58.2) Active confirmed Plan Of Treatment Future Test Test Name Order Date COLONOSCOPY 04/29/2015 Insurance Providers Payer Name Payer Address Payer Phone Subscriber Number Group Number Insured Name Patient Relationship to Insured Coverage Start Date Coverage End Date MEDICARE OF [place] [address] [place] [id number] [phone] [id number] JACKIE VENCESAN Self - patient is the insured [facility] [address] [place] [phone] [id number] VANGIEJACKIEAN Self - patient is the insured Medical (General) History Medical History History ICD Code tubular adenoma 09/26, last colonoscopy , no adenomas. elevated cholesteroll hiatal hernia reflux disease chest pain SOB Surgical History Surgery Date(Month/Year) cholecystectomy hysterectomy knee surgery hand surgery scoped shoulders
--- OUTSIDE RECORDS SUMMARY | 2025-05-21 16:49 | XMS_ITS | Clinical Summary ---
Author Organization [facility] Address [address] [place] [address] Care Team Providers Care Filter Operator Name Role Phone Fabiano Mckeon MD Primary Care Provider [phone] Allergies Active Allergy Reactions Criticality Noted Date [...] age to complete this topic Care Teams Filter Operator Relationship Specialty Start Date End Date Fabiano Mckeon MD [address] [place] [address] [address] [facility] [place] [address] PCP - General Internal Medicine 09/30/21
== END 2025-05-21 13:46 | disposition home or self-care (01) ==
LOC: HO.HMCH 13:15
PROVIDERS: PCP Internal Medicine; Visit Provider Internal Medicine
DX: R73.01 Impaired fasting glucose (principal); E78.00 Pure hypercholesterolemia, unspecified; I63.9 Cerebral infarction, unspecified; G62.9 Polyneuropathy, unspecified; R20.0 Anesthesia of skin

== ENCOUNTER → 2025-05-21 13:14 | Outpatient (BNVA) | payer MEDICARE, SELFPAY | PROVIDERS: PCP Internal Medicine; Visit Provider Internal Medicine | DX: R73.01 Impaired fasting glucose (principal); E78.00 Pure hypercholesterolemia, unspecified; G31.84 Mild cognitive impairment of uncertain or unknown etiology; G62.9 Polyneuropathy, unspecified; R20.0 Anesthesia of skin; Z71.3 Dietary counseling and surveillance; Z86.73 Personal history of transient ischemic attack (TIA), and cerebral infarction without residual deficits; Z79.82 Long term (current) use of aspirin | CPT/HCPCS: 99212 ==

== ENCOUNTER 2025-06-10 09:37 | Outpatient (REF) | payer MEDICARE, SELFPAY ==
--- NOTE | 2025-06-10 09:44 | EMG_ITS ---
Chief complaint: numbness of legs Reason for referral: G62.9 polyneuropathy Referred by: Jason Latif MD Procedure done: NCS and EMG of bilateral lower extremities Bilateral peroneal and tibial motor studies were performed with F responses. Tibial H reflexes were obtained. Bilateral superficial peroneal and sural sensory studies were performed. Needle examination was performed. Findings: Left peroneal amplitude was severely diminished. Superficial peroneal and sural amplitudes were severely diminished to absent with relatively intact conduction velocities. Later responses were slightly prolonged with absent H reflexes. Impression: [id number] somewhat patchy, sensory more than motor, peripheral neuropathy with axonal loss and demyelination. Codin 51671 x2 MTDD
[2025-06-10 09:54] LABS: MANUAL DIFF FLAG NO
[2025-06-10 10:38] LABS: Hematocrit 40.7 % (37.0-47.0); Hemoglobin 12.6 g/dl (12.0-16.0); Imm Gran Abs Auto 0.04 X10*3/uL (0.00-0.03); Imm Gran Pct Auto 0.4 % (0.0-0.4); Lymphocytes Absolute Auto 3.5 X10*3/uL (1.2-4.9); Mean Corpuscular HGB Conc 31.0 g/dl (31.0-35.0); Mean Corpuscular Hemoglobin 25.9 pg (27.0-33.0); Mean Corpuscular Volume 83.7 fL (80.0-98.0); NRBC Abs Auto 0.000 X10*3/uL (0.0-0.012); NRBC Pct Auto 0.0 /100WBC (0.0-0.2); Platelet Count 288 X10*3/uL (160-400); Red Blood Count 4.86 X10*6/uL (4.20-5.50); Reticulocytes Absolute 0.055 X10*6/uL (0.026-0.095); White Blood Count 9.5 X10*3/uL (4.8-10.8)
[2025-06-10 11:11] LABS: Alanine Aminotransferase 18 U/L (0-31); Albumin Level 4.2 g/dL (3.5-5.0); Alkaline Phosphatase 50 U/L (39-117); Anion Gap 11 (12-20); Aspartate Amino Transferase 20 U/L (5-31); Blood Urea Nitrogen 26 mg/dL (9-16); Calcium 9.3 mg/dL (8.4-10.2); Carbon Dioxide 25 mmol/L (22-29); Chloride 108 mmol/L (96-108); Cholesterol 125 mg/dL (<200); Estimated Glomerular Filt Rate 44; HDL Cholesterol 43 mg/dL (>40); Potassium 4.0 mmol/L (3.3-5.1); Sodium 140 mmol/L (135-145); Total Protein 7.1 g/dL (6.5-8.0); Triglycerides 83 mg/dL (<150)
[2025-06-10 11:36] LABS: Folate 7.5 ng/mL (> or = 4.0); Uric Acid 4.7 mg/dL (2.4-5.7); Vitamin B12 822 pg/mL (200-900)
[2025-06-10 11:46] LABS: Ferritin 125 ng/mL (10-250); Free T4 (Free Thyroxine) 0.88 ng/dL (0.71-1.85); Thyroid Stimulating Hormone 3.52 uIU/mL (0.32-4.0)
== END 2025-06-10 09:38 | disposition home or self-care (01) ==
LOC: HO.NEURO 09:37
PROVIDERS: Absent Provider Internal Medicine; PCP Internal Medicine; Visit Provider Psychiatry & Neurology Neurology
DX: R20.0 Anesthesia of skin (principal); G62.9 Polyneuropathy, unspecified; E78.00 Pure hypercholesterolemia, unspecified; Z13.1 Encounter for screening for diabetes mellitus; Z13.21 Encounter for screening for nutritional disorder
CPT/HCPCS: 36415; 80053; 80061; 82306; 82607; 82728; 82746; 83036; 84439; 84443; 84550; 85025; 85045; 95886; 95911

== ENCOUNTER → 2025-06-10 09:44 | Outpatient (BNV) | payer MEDICARE, SELFPAY | PROVIDERS: Absent Provider Internal Medicine; PCP Internal Medicine; Visit Provider Psychiatry & Neurology Neurology | DX: G62.89 Other specified polyneuropathies (principal) | CPT/HCPCS: 95886; 95911 ==

== ENCOUNTER 2025-06-18 14:48 | Outpatient (AMB) | payer MEDICARE, SELFPAY ==
--- NOTE | 2025-06-18 15:04 | A.OFFVIS_ITS ---
Intake Visit Reasons: after EMG Allergies tramadol (TRAMADOL) Allergy (Severe, Verified 05/21/25 13:23) THROAT SWELLING morphine (MORPHINE) Allergy (Intermediate, Verified 05/21/25 13:23) JITTERY, pain nitrofurantoin (From MACROBID) Allergy (Intermediate, Verified 05/21/25 13:23) HIVES codeine (CODEINE) Allergy (Unknown, Verified 05/21/25 13:23) pain oxycodone (Percocet) Allergy (Unknown, Verified 05/21/25 13:23) pain Sulfa (Sulfonamide Antibiotics) Allergy (Unknown, Verified 05/21/25 13:23) Nausea, diarrhea mirabegron (From Myrbetriq) Adverse Reaction (Intermediate, Verified 05/21/25 13:23) Dizziness sulfamethoxazole (From BACTRIM) Adverse Reaction (Intermediate, Verified 05/21/25 13:23) NAUSEA/DIARRHEA trimethoprim (From BACTRIM) Adverse Reaction (Intermediate, Verified 05/21/25 13:23) NAUSEA/DIARRHEA Propoxyphene HCl Allergy (Unknown, Uncoded 05/21/25 13:23) Unknown From DARVOCET-N 100 Adverse Reaction (Intermediate, Uncoded 05/21/25 13:23) ABD PAIN - NAUSEA HPI Comments Details: The patient is a 79-year-old female presenting with dizziness and impaired balance. The dizziness is especially pronounced when bending down, resulting in a spinning sensation that requires her to hold on for stability. This condition, termed vertigo in our discussions, has been challenging for the patient due to its unpredictability and impact on her safety and mobility. Mitigating factors include holding onto something to prevent falls, consistent with her compensatory measures for vertigo. The patient denies any changes in cognition or loss of awareness during these dizzy spells, though she occasionally experiences issues with focusing. She has a notable history of osteoarthritis impacting both knees, which have been replaced but still cause discomfort, possibly due to ongoing arthritis rather than the past deep vein thrombosis she experienced. The patient also takes medications for anxiety and cholesterol management, expressing a need to stop clopidogrel per our discussion. [facility] Medical History Peripheral polyneuropathy Dyspnea on exertion Left carotid stenosis Abnormal stress ECG Age-related osteoporosis without current pathological fracture Right leg pain Screening for breast cancer Overactive bladder Degenerative disc disease, lumbar Allergic rhinitis Mixed incontinence Hypercholesterolemia Vitamin D deficiency Surgical History Status post ablation of incompetent vein using laser (12/15/23) History of cataract surgery History of arthroscopy of left knee History of shoulder surgery History of hysterectomy History of cholecystectomy Family History Father Diabetes Myocardial infarction Heart disease Mother Heart disease Chronic mental illness Stomach cancer Sister Esophageal cancer Brother Esophageal cancer Paternal Grandfather Heart disease Social History Household Members: None Household Members Other:: neighbors check on her on a regular basis Housing: Other Housing Other:: two family Alcohol intake: current Alcohol intake frequency: holidays/special occasions only Comment: glass of wine once a month Patient Tobacco Use Status: Former Tobacco user e-Cigarette/Vaping Use: Never Used Second Hand Smoke Exposure: No service: No Current occupational status: retired Cognitive needs: No Hearing needs: No Vision needs: Yes Review of Systems Narrative - Neurological: Reports dizziness, impaired balance, episodes of vertigo - Eyes: Reports issues focusing, describes eyes as crazy lately - Ears: Reports itchy ears; denies ear pressure or infection - Musculoskeletal: Reports bilateral knee pain post-replacement - Psychiatric: Reports anxiety, no current confusion - Cardiovascular: Denies history of hypertension or arrhythmia - Metabolic: Denies diabetes - Hematologic: Reports history of deep vein thrombosis Physical Exam Neuro Other: Mental Status: Alert and oriented to person, place, and time. Normal attention. Normal spontaneous speech, fluency, and comprehension. No obvious issues with mood and memory. Affect is appropriate. Cranial Nerves: CN II: Visual infante full to confrontation, visual acuity intact. CN III, IV, : Pupils equal, round, reactive to light and accommodation. Extraocular movements are normal. CN V: Facial sensation is normal. CN VII: Facial movements symmetrical. CN VIII: Hearing intact to bedside conversation is normal. CN IX, X: Palate elevates symmetrically. CN XI: Shoulder shrug and head turn symmetrical. CN XII: Tongue midline without atrophy or fasciculations. She is unsteady on her feet walking in a cautious gait sometime holding onto things. Extrapyramidal: Full facial expressions and blinking. No rigidity. Movements are appropriate with no tremor or abnormality. Speech: Normal; no dysarthria or tremor. Assessment & Plan Assessment & Plan (1) MCI (mild cognitive impairment): Comment: [place] [facility] [place]: NSR TTE [place] [facility] [place]24: [place] CTA? 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, mild underlying MVD, mild atrophy CT brain WO at [facility] [place] Aug 2024: Mild diff atrophy Code(s): G31.84 - Mild cognitive impairment of uncertain or unknown etiology Category: Medical (2) Cerebral microvascular disease: Code(s): I67.89 - Other cerebrovascular disease Category: Medical (3) Benign positional vertigo: Code(s): H81.10 - Benign paroxysmal vertigo, unspecified ear Category: Medical Qualifiers: Laterality: unspecified laterality Qualified Code(s): H81.10 - Benign paroxysmal vertigo, unspecified ear (4) Peripheral neuropathy: Comment: EMG/NCS LEs [place] [facility] [place] 2025: [id number] somewhat patchy, sensory more than motor, peripheral neuropathy with axonal loss and demyelination. Code(s): G62.9 - Polyneuropathy, unspecified Category: Medical Qualifiers: Peripheral neuropathy type: polyneuropathy, unspecified Qualified Code(s): G62.9 - Polyneuropathy, unspecified Plan Impression: a: Multifactorial gait disorder b: BPPV c: Peripheral neuropathy d: MCI e: Cerebral microvascular disease of brain Rec: a: Education c: Common sense measures to avoid falls d: Aspirin 81mg daily Orders: Orders Basic Metabolic Panel Fasting Today G62.9 - Polyneuropathy, unspecified Lyme IgG/IgM w/reflex to WB Today G62.9 - Polyneuropathy, unspecified Immunofixation Pnl, Serum Today G62.9 - Polyneuropathy, unspecified Vitamin B12 and Folate Today G62.9 - Polyneuropathy, unspecified Coding Level of Care Code Est Pt Level 3 (12378) Diagnoses MCI (mild cognitive impairment) G31.84 Cerebral microvascular disease I67.89 Benign paroxysmal positional vertigo, unspecified laterality H81.10 Laterality: unspecified laterality Peripheral polyneuropathy G62.9 Peripheral neuropathy type: polyneuropathy, unspecified
--- OUTSIDE RECORDS SUMMARY | 2025-06-18 17:30 | XMS_ITS | Clinical Summary ---
Author Organization [facility] Address [address] [place] [address] Care Team Providers Care String Cutter Name Role Phone Fabiano Mckeon MD Primary Care Provider [phone] Allergies Active Allergy Reactions Criticality Noted Date [...] age to complete this topic Care Teams String Cutter Relationship Specialty Start Date End Date Fabiano Mckeon MD [address] [place] [address] [address] [facility] [place] [address] PCP - General Internal Medicine 09/30/21
== END 2025-06-18 15:13 | disposition home or self-care (01) ==
LOC: HO.HSM 14:49
PROVIDERS: PCP Internal Medicine; Visit Provider Psychiatry & Neurology Neurology
DX: G31.84 Mild cognitive impairment of uncertain or unknown etiology (principal); I67.89 Other cerebrovascular disease; H81.10 Benign paroxysmal vertigo, unspecified ear; G62.9 Polyneuropathy, unspecified
CPT/HCPCS: 99213

== ENCOUNTER → 2025-06-18 14:48 | Outpatient (BNVA) | payer MEDICARE, SELFPAY | PROVIDERS: PCP Internal Medicine; Visit Provider Psychiatry & Neurology Neurology | DX: H81.10 Benign paroxysmal vertigo, unspecified ear (principal); R26.81 Unsteadiness on feet; G31.84 Mild cognitive impairment of uncertain or unknown etiology; Z87.891 Personal history of nicotine dependence; G62.9 Polyneuropathy, unspecified | CPT/HCPCS: 99212 ==

== ENCOUNTER 2025-06-30 16:25 | Outpatient (AMB) | payer MEDICARE, SELFPAY ==
--- OUTSIDE RECORDS SUMMARY | 2025-07-01 01:54 | XMS_ITS | Patient Health Record ---
Author Organization [facility] Address [address] [place] [id number] Care Team Providers Care Lens Assorter Name Role Phone Fabiano Mckeon MD Primary Care Provider Prem Coe Jr Unavailable [phone] Allergies Allergen (clinical drug ingredient) Drug/Non Drug Allergy documented on EMR Reaction Allergy Type Onset Date Status most pain medications (uncoded) stomach upset Allergy Active acetaminophen / oxycodone Percocet vomiting Drug Allergy Active tramadol Tramadol HCl SOB Drug Allergy Acti ve Reason For Referral No Information Medications Medication SIG (Take, Route, Frequency, Duration) Notes Start Date End Date Status Citalopram Hydrobromide 10 MG Tablet 1 tablet Orally Once a day Active Estrace 0.5 MG Tablet 1 tablet Orally daily Active Flax Seed Oil Active Advil 200 MG Capsule 2 tablet as needed Orally at HS Active Vitamin D3 Active Probiotic Active Social History Tobacco Use: Social History Observation Description Date Details (start date - stop date) Former Smoker NA - NA Social History Tobacco Use: Social Info Question Answer Notes Tobacco Use/Smoking Patient is a former smoker When did you stop smoking? 28 years ago How long has it been since you last smoked? > 10 years Additional Details Category Social Info Options Details Miscellaneous: Marital status: single, di vorced Occupation: retired Problems Problem Type SNOMED Code ICD Code Onset Dates Problem Status W/U Status Risk Notes Problem Rectal bleeding (62814164) Rectal bleeding (K62.5) Active confirmed Problem Gastroesophageal reflux disease without esophagitis (343186400) Gastroesophageal reflux disease without esophagitis (K21.9) Active confirmed Problem Irritable bowel syndrome (56250378) Irritable bowel syndrome with both constipation and diarrhea (K58.2) Active confirmed Plan Of Treatment Future Test Test Name Order Date COLONOSCOPY 04/29/2015 Insurance Providers Payer Name Payer Address Payer Phone Subscriber Number Group Number Insured Name Patient Relationship to Insured Coverage Start Date Coverage End Date MEDICARE OF [place] [address] [place] [id number] [phone] [id number] LILY VENCES Self - patient is the insured [facility] [address] [place] [phone] [id number] JACKIE VENCESAN Self - patient is the insured Medical (General) History Medical History History ICD Code tubular adenoma 09/26, last colonoscopy , no adenomas. elevated cholesteroll hiatal hernia reflux disease chest pain SOB Surgical History Surgery Date(Month/Year) cholecystectomy hysterectomy knee surgery hand surgery scoped shoulders
--- OUTSIDE RECORDS SUMMARY | 2025-07-01 01:54 | XMS_ITS | Clinical Summary ---
Author Organization [facility] Prior to 12/21/24 Address [address] [place] [address] Care Team Providers Care Supervisor Scrap Preparation Name Role Phone Fabiano Mckeon MD Primary Care Provider [phone] Allergies Active Allergy Reactions Criticality Noted Date [...] age to complete this topic Care Teams Supervisor Scrap Preparation Relationship Specialty Start Date End Date Fabiano Mckeon MD [address] [place] [address] [address] [facility] [place] [address] PCP - General Internal Medicine 09/30/21
== END 2025-06-30 16:25 | disposition home or self-care (01) ==
LOC: HO.HMGAL 16:25
PROVIDERS: PCP Internal Medicine; Visit Provider Registered Nurse Emergency
DX: J30.89 Other allergic rhinitis (principal)
CPT/HCPCS: 95117; 95165

== ENCOUNTER 2025-07-01 11:32 | Outpatient (REF) | payer MEDICARE, SELFPAY ==
[2025-07-01 12:56] LABS: Anion Gap 12 (12-20); Blood Urea Nitrogen 24 mg/dL (9-16); Calcium 9.7 mg/dL (8.4-10.2); Carbon Dioxide 30 mmol/L (22-29); Chloride 105 mmol/L (96-108); Estimated Glomerular Filt Rate 44; Potassium 3.9 mmol/L (3.3-5.1); Sodium 143 mmol/L (135-145)
[2025-07-01 13:31] LABS: Folate 6.1 ng/mL (> or = 4.0); Vitamin B12 1088 pg/mL (200-900)
[2025-07-02 06:58] LABS: Lyme Blot 1.19 index
== END 2025-07-01 11:33 | disposition home or self-care (01) ==
LOC: HO.LAB 11:32
PROVIDERS: PCP Internal Medicine; Visit Provider Psychiatry & Neurology Neurology
DX: Z01.84 Encounter for antibody response examination (principal); G62.9 Polyneuropathy, unspecified
CPT/HCPCS: 36415; 80048; 82607; 82746; 82784; 86334; 86617; 86618